=== PATIENT | male | born 1985 | race Hispanic/Latino ===

== ENCOUNTER 2019-03-04 16:22 | Emergency (ER) | payer SELFPAY ==
[2019-03-04] MEDS ORDERED: KETOROLAC TROMETHAMINE 60 MG/2 ML VIAL ONE (16:43)
[2019-03-04] MEDS ORDERED: ORPHENADRINE CITRATE 30 MG/ML ML ONE (16:43)
[2019-03-04 17:09] LABS: APPEARANCE,URINE Clear (CLEAR); BILIRUBIN,URINE Negative (NEGATIVE); COLOR,URINE Yellow (YELLOW); GLUCOSE, URINE (UA) Negative (NEGATIVE); KETONES,URINE Negative (NEGATIVE); LEUKOCYTE ESTERASE ,URINE Negative (NEGATIVE); NITRATE,URINE Negative (NEGATIVE); OCCULT BLOOD,URINE Negative (NEGATIVE); PH,URINE 5.5 (5.0-8.0); PROTEIN,URINE Negative (NEGATIVE)
== END 2019-03-04 18:39 | disposition home or self-care (01) ==
LOC: EDH 16:22
DX: M54.42 Lumbago with sciatica, left side (principal)
CPT/HCPCS: 72100; 81003; 96372 ×2; 99285; J1885; J2360

== ENCOUNTER 2021-08-21 11:11 | Emergency (ER) | payer OTHER ==
[~2021-08-21] VITALS: Ht 182.9 cm; Wt 102.1 kg
[2021-08-21] MEDS ORDERED: IBUPROFEN 800 MG TAB PO ONE (12:30)
[2021-08-21] MEDS ORDERED: IBUP-1552 PO (14:10)
[2021-08-21] MEDS ORDERED: CYCL10TA16 PO (14:10)
[2021-08-21 14:36] VITALS: BP 122/75
== END 2021-08-21 14:36 | disposition home or self-care (01) ==
LOC: EDH 11:11
DX: S16.1XXA Strain of muscle, fascia and tendon at neck level, initial encounter (principal); S20.219A Contusion of unspecified front wall of thorax, initial encounter; Z79.1 Long term (current) use of non-steroidal anti-inflammatories (NSAID); X58.XXXA Exposure to other specified factors, initial encounter; Y93.89 Activity, other specified; Y92.89 Other specified places as the place of occurrence of the external cause; Y99.8 Other external cause status
CPT/HCPCS: 71250; 72125

== ENCOUNTER 2022-02-19 19:13 | Emergency (ER) | payer OTHER ==
[~2022-02-19] VITALS: Ht 182.9 cm; Wt 111.1 kg
[~2022-02-19 19:13] MED LIST: CYCL10TA16 PO; IBUP-1552 PO
[2022-02-19 20:27] LABS: BASOPHILS % (AUTO) 0.6 % (0.0-5.0); EOSINOPHILS % (AUTO) 0.1 % (0.0-8.0); LYMPHOCYTES % (AUTO) 14.9 % (21.0-51.0); MEAN CORPUSCULAR HEMOGLOBIN 31.4 pg (27.0-33.0); MEAN CORPUSCULAR HGB CONC 34.8 g/dL (32.0-36.0); MEAN CORPUSCULAR VOLUME 90.4 fL (79-99); MONOCYTES % (AUTO) 7.9 % (3.0-13.0); NEUTROPHILS % (AUTO) 75.9 % (40.0-77.0); PLATELET COUNT (AUTO) 269 K/uL (130-400); RED BLOOD CELL COUNT(AUTO) 5.09 MIL/uL (4.50-6.20); RED CELL DISTRIBUTION WIDTH 12.4 % (11.0-15.5); WHITE BLOOD COUNT (AUTO) 8.8 K/uL (4.8-10.8)
[2022-02-19 20:38] LABS: CREATININE 0.9 mg/dL (0.5-1.5); POTASSIUM 3.6 mmol/L (3.5-5.1)
[2022-02-19 20:43] LABS: ALBUMIN 4.6 g/dL (3.5-5.0); BILIRUBIN,TOTAL 1.3 mg/dL (0.2-1.0); TOTAL PROTEIN, SERUM 9.1 g/dL (6.0-8.3)
[2022-02-19] MEDS ORDERED: HYDR-3422 PO (20:44)
[2022-02-19] MEDS ORDERED: LORAZEPAM 1 MG TABLET ONE (20:59)
[2022-02-19] MEDS ORDERED: LORAZEPAM 1 MG TABLET PO ONE (21:00)
[2022-02-19 21:52] VITALS: BP 145/79
== END 2022-02-19 21:54 | disposition home or self-care (01) ==
LOC: EDH 19:13
DX: F41.9 Anxiety disorder, unspecified (principal)
CPT/HCPCS: 36415; 80053; 84484; 85025; 93005

== ENCOUNTER 2022-04-17 18:51 | Emergency (ER) | payer OTHER ==
[~2022-04-17] VITALS: Ht 182.9 cm; Wt 106.6 kg
[~2022-04-17 18:51] MED LIST changes: +HYDR-3422 PO
[2022-04-17 19:24] LABS: APPEARANCE,URINE CLEAR (CLEAR); BILIRUBIN,URINE NEGATIVE (NEGATIVE); COLOR,URINE YELLOW (YELLOW); GLUCOSE, URINE (UA) NEGATIVE (NEGATIVE); KETONES,URINE NEGATIVE (NEGATIVE); LEUKOCYTE ESTERASE ,URINE NEGATIVE (NEGATIVE); NITRATE,URINE NEGATIVE (NEGATIVE); OCCULT BLOOD,URINE NEGATIVE (NEGATIVE); PH,URINE >=9.0 (5.0-8.0); PROTEIN,URINE TRACE mg/dL (NEGATIVE); UROBILINOGEN,URINE 0.2 mg/dL (0.2-1.0)
[2022-04-17 19:25] LABS: BASOPHILS % (AUTO) 0.7 % (0.0-5.0); EOSINOPHILS % (AUTO) 1.6 % (0.0-8.0); HEMATOCRIT 46.5 % (42-54); LYMPHOCYTES % (AUTO) 23.4 % (21.0-51.0); MEAN CORPUSCULAR HGB CONC 34.8 g/dL (32.0-36.0); MEAN CORPUSCULAR VOLUME 88.9 fL (79-99); NEUTROPHILS % (AUTO) 65.1 % (40.0-77.0); PLATELET COUNT (AUTO) 218 K/uL (130-400); RED BLOOD CELL COUNT(AUTO) 5.23 MIL/uL (4.50-6.20); RED CELL DISTRIBUTION WIDTH 12.8 % (11.0-15.5); WHITE BLOOD COUNT (AUTO) 6.9 K/uL (4.8-10.8)
[2022-04-17 19:33] LABS: AMPHET/METH SCREEN,URINE NEGATIVE (NEGATIVE); BACTERIA,URINE None Seen /HPF (None Seen); BARBITURATE SCREEN, URINE NEGATIVE (NEGATIVE); BENZODIAZEPINES SCREEN,URINE NEGATIVE (NEGATIVE); CANNABINOID SCREEN,URINE NEGATIVE (NEGATIVE); COCAINE SCREEN,URINE NEGATIVE (NEGATIVE); MUCUS,URINE Rare LPF (None Seen); OPIATE SCREEN,URINE NEGATIVE (NEGATIVE); PHENCYCLIDINE SCREEN,URINE NEGATIVE (NEGATIVE); RBC,URINE 0-1 /HPF (0-1); SQUAMOUS EPITHELIAL CELL,UR 0-2 /HPF (0-2); WBC,URINE 0-1 /HPF (0-1)
[2022-04-17 19:36] LABS: POTASSIUM 3.5 mmol/L (3.5-5.1)
[2022-04-17 19:45] LABS: ALBUMIN 4.6 g/dL (3.5-5.0); BILIRUBIN,TOTAL 0.8 mg/dL (0.2-1.0)
[2022-04-17] MEDS ORDERED: HYDROXYZINE 25 MG TABLET PO ONE (20:30)
[2022-04-17] MEDS ORDERED: HYDROXYZINE 25 MG TABLET ONE (22:07)
[2022-04-17 22:32] VITALS: BP 135/74
[2022-04-17] MEDS ORDERED: HYDR-3421 PO (22:57)
== END 2022-04-17 23:04 | disposition home or self-care (01) ==
LOC: EDH 18:51
DX: F41.9 Anxiety disorder, unspecified (principal); Z79.899 Other long term (current) drug therapy; Z98.890 Other specified postprocedural states
CPT/HCPCS: 36415; 80053; 80305; 81001; 84484; 85025; 93005

== ENCOUNTER 2022-12-23 09:03 | Emergency (ER) | payer OTHER ==
[~2022-12-23] VITALS: Ht 182.9 cm; Wt 108.9 kg
[~2022-12-23 09:03] MED LIST changes: +HYDR-3421 PO
[2022-12-23] MEDS ORDERED: DEXAMETHASONE SOD PHOSPHATE 4 MG/ML 1ML VIAL IM ONE (09:30)
[2022-12-23] MEDS ORDERED: DEXAMETHASONE SOD PHOSPHATE 10MG/ML 1ML VIAL ONE (09:37)
[2022-12-23] MEDS ORDERED: OSEL75 PO (10:53)
[2022-12-23] MEDS ORDERED: HYD25 PO (10:53)
[2022-12-23] MEDS ORDERED: IBUP-2070 PO (10:53)
[2022-12-23 11:09] VITALS: BP 137/94
== END 2022-12-23 11:12 | disposition home or self-care (01) ==
LOC: EDH 09:03
DX: J10.1 Influenza due to other identified influenza virus with other respiratory manifestations (principal); F41.9 Anxiety disorder, unspecified; Z20.822 Contact with and (suspected) exposure to COVID-19; Z79.899 Other long term (current) drug therapy; Z98.890 Other specified postprocedural states
CPT/HCPCS: 99283; 87635; 87880; 87804 ×2; 96372; C9803; J1100

== ENCOUNTER 2024-11-25 02:44 | Emergency (ER) | payer SELFPAY ==
[~2024-11-25] VITALS: Ht 182.9 cm; Wt 111.1 kg
[~2024-11-25 02:44] MED LIST changes: +HYD25 PO; +IBUP-2070 PO; +OSEL75 PO
[2024-11-25] MEDS: ALPRAZolam 0.5 MG TABLET PO ONE (03:15)
[2024-11-25 03:29] VITALS: BP 143/95; PULSE 78; RESP 18; TEMP 97; O2SAT 98
[2024-11-25 03:38] LABS: BASOPHILS # (AUTO) 0.05 K/uL (0.00-0.20); BASOPHILS % (AUTO) 0.8 % (0.0-5.0); EOSINOPHILS # (AUTO) 0.16 K/uL (0.00-0.70); EOSINOPHILS % (AUTO) 2.6 % (0.0-8.0); HEMATOCRIT 45.3 % (42-54); IMMATURE GRANULOCYTE ABSOLUTE 0.03 K/uL (0-1); LYMPHOCYTES # (AUTO) 1.8 K/uL (1.0-4.8); LYMPHOCYTES % (AUTO) 28.9 % (21.0-51.0); MEAN CORPUSCULAR HEMOGLOBIN 31.3 pg (27.0-33.0); MEAN CORPUSCULAR HGB CONC 34.2 g/dL (32.0-36.0); MEAN CORPUSCULAR VOLUME 91.3 fL (79-99); MONOCYTES # (AUTO) 0.5 K/uL (0.1-1.0); MONOCYTES % (AUTO) 8.2 % (3.0-13.0); NEUTROPHILS # (AUTO) 3.6 K/uL (1.8-7.7); PLATELET COUNT (AUTO) 229 K/uL (130-400); RED BLOOD CELL COUNT(AUTO) 4.96 MIL/uL (4.50-6.20); RED CELL DISTRIBUTION WIDTH 12.9 % (11.0-15.5); WHITE BLOOD COUNT (AUTO) 6.1 K/uL (4.8-10.8)
[2024-11-25 03:50] LABS: CREATININE 0.8 mg/dL (0.5-1.3); POTASSIUM 3.6 mmol/L (3.5-5.1)
[2024-11-25] MEDS ORDERED: HYDR-3421 PO (04:34)
--- NOTE | 2024-11-25 04:34 | ERN ---
ED Note History of Present Illness Stated Complaint: ANXIETY Chief Complaint: Anxiety/Panic Attack Time Seen by Midlevel: 02:45 Dictation: The patient is a 39-year-old male with a history of anxiety who presents to the emergency department with complaints of anxiety, palpitations. Patient reports these symptoms been going on for two years but worse today. Reports some shortness of breath and chest discomfort. Allergies: Coded Allergies: No Known Drug Allergies (Unverified Allergy, Unknown, 03/04/19) Home Meds Active Scripts Hydroxyzine HCl (Atarax) 25 Mg Tab, 25 MG PO TID for ANXIETY, #30 TAB Prov:ZOHRA GÓMEZ MD 12/23/22 Oseltamivir Phosphate (Tamiflu) 75 Mg Cap, 75 MG PO BID for 5 Days, #10 CAP Prov:ZOHRA GÓMEZ MD 12/23/22 Ibuprofen (Ibuprofen) 600 Mg Tablet, 600 MG PO Q6H PRN for PAIN, #30 TAB Prov:ZOHRA GÓMEZ MD 12/23/22 Hydroxyzine HCl (Hydroxyzine HCl) 25 Mg Tablet, 25 MG PO QID PRN for ANX IETY/AGITATION, #30 TAB 0 Refills Prov:AI REES MD 04/17/22 Hydroxyzine HCl (Hydroxyzine HCl) 50 Mg Tablet, 50 MG PO TID PRN for ANXIETY/AGITATION, #15 TAB Prov:MYRIAM BHATT 02/19/22 Cyclobenzaprine HCl (Flexeril) 10 Mg Tab, 10 MG PO BID, #30 TAB Prov:JAS LARRY 08/21/21 Ibuprofen (Ibu) 400 Mg Tablet, 800 MG PO TIDAC, #60 TAB Prov:JAS LARRY 08/21/21 Past Medical History Past Medical History: Anxiety Surgical History: None Surgical History Other: FOOT Social History: Negative, Lives with family Initial Vital Sign VS Vital Signs Date Time Temp Pulse Resp B/P (MAP) Pulse Ox O2 Delivery O2 Flow Rate FiO2 11/25/24 03:00 97.0 78 18 143/95 97 Room Air 11/25/24 03:29 0 21 Results (Laboratory/Radiology) Laboratory/Radiology Laboratory Tests Test 11/25/24 03:15 White Blood Count 6.1 K/uL (4.8-10.8) Red Blood Count 4.96 MIL/uL (4.50-6.20) Hemoglobin 15.5 g/dL (14.0-18.0) Hematocrit 45.3 % (42-54) Mean Corpuscular Volume 91.3 fL (79-99) Mean Corpuscular Hemoglobin 31.3 pg (27.0-33.0) Mean Corpuscular Hemoglobin Concent 34.2 g/dL (32.0-36.0) Red Cell Distribution Width 12.9 % (11.0-15.5) Platelet Count 229 K/uL (130-400) Mean Platelet Volume 9.2 fL (7.5-10.5) Immature Granulocyte % (Auto) 0.5 % (0-1) Neutrophils (%) (Auto) 59.0 % (40.0-77.0) Lymphocytes (%) (Auto) 28.9 % (21.0-51.0) Monocytes (%) (Auto) 8.2 % (3.0-13.0) Eosinophils (%) (Auto) 2.6 % (0.0-8.0) Basophils (%) (Auto) 0.8 % (0.0-5.0) Neutrophils # (Auto) 3.6 K/uL (1.8-7.7) Lymphocytes # (Auto) 1.8 K/uL (1.0-4.8) Monocytes # (Auto) 0.5 K/uL (0.1-1.0) Eosinophils # (Auto) 0.16 K/uL (0.00-0.70) Basophils # (Auto) 0.05 K/uL (0.00-0.20) Absolute Immature Granulocyte (auto 0.03 K/uL (0-1) Nucleated Red Blood Cells 0.0 % (0.0-0.19) Sodium Level 135 mmol/L (136-145) L Potassium Level 3.6 mmol/L (3.5-5.1) Chloride Level 98 mmol/L (101-111) L Carbon Dioxide Level 26 mmol/L (21-32) Blood Urea Nitrogen 6 mg/dL (7-18) L Creatinine 0.8 mg/dL (0.5-1.3) Glomerular Filtration Rate Calc 115 mL/min (>90) Random Glucose 104 mg/dL (70-105) Total Calcium 9.1 mg/dL (8.5-10.1) Troponin I High Sensitivity 8 ng/L (4-75) Labs Reviewed?: Yes EKG: (+) rhythm (Sinus rhythm) EKG Comment: Date:11/25/2024 Time:318 Ventricular rate:79 NV interval:151 QRS duration:86 QT/QTc:380 EKG interpretation: Sinus rhythm Reviewed by ED Attending no STEMI ED Course ED Course Orders Procedure Category Date Status Time 12 Lead Ekg Tracing- EKG 11/25/24 Logged Technical 03:04 Cbc With Differential LAB 11/25/24 Complete 03:04 Basic Metabolic Panel LAB 11/25/24 Complete 03:04 Troponin I High LAB 11/25/24 Complete Sensitivity 03:04 Alprazolam 0.5mg PHA 11/25/24 Complete (Xanax 0.5mg) 03:30 Current Medications Medications (Trade) Dose Ordered Sig/Jarad Route PRN Reason Start Time Stop Time Status Last Admin Dose Admin Alprazolam (XANax 0.5MG) 0.5 mg ONCE ONCE PO 11/25/24 03:30 11/25/24 03:32 DC 11/25/24 03:15 Vital Signs Date Time Temp Pulse Resp B/P (MAP) Pulse Ox O2 Delivery O2 Flow Rate FiO2 11/25/24 03:29 97.0 78 18 143/95 98 Room Air* 0 21 11/25/24 03:00 97.0 78 18 143/95 97 Room Air Medical Decision Making MDM The patient is a 39-year-old male with a history of anxiety who presents to the emergency department with complaints of anxiety, palpitations. Patient reports these symptoms been going on for two years but worse today. Reports some shortness of breath and chest discomfort. CBC showed no leukocytosis, no anemia, chemistry showed mild hypochloremia, hyponatremia, negative troponin. Patient seen in the hospital for multiple occasions for same complaints. Patient denies any SI or HI. Reports improving in symptoms after medication. Patient in no acute distress. Will be discharged to follow up with PCP. Differential diagnosis: ACS, anxiety, dehydration, tachyarrhythmias Need for hospitalization: Patient does not meet criteria for hospitalization. There are no social concerns with this patient. DX & DISP Disposition: Discharge Departure Impression: Primary Impression: Anxiety attack Condition: Stable Scripts Hydroxyzine HCl (Hydroxyzine HCl) 25 Mg Tablet 1 TAB PO TID for anxiety for 30 Days, #90 TAB 0 Refills Prov: ZEKE WALKER 11/25/24 Additional Instructions: FOLLOW-UP WITH PRIMARY CARE PROVIDER IN 1 TO 2 DAYS. TAKE MEDICATIONS DIRECTED HERE IN THE EMERGENCY ROOM. OKAY TO CONTINUE HOME MEDICATIONS UNLESS OTHERWISE DISCUSSED DURING YOUR VISIT IN THE EMERGENCY ROOM TODAY. RETURN TO YOUR NEAREST EMERGENCY ROOM IF SYMPTOMS WORSEN OR IF THERE IS NO IMPROVEMENT. CALL 911 IF YOU NEED IMMEDIATE ASSISTANCE. TAKE TYLENOL OR MOTRIN [id number] NEEDED AND IF NO CONTRAINDICATIONS ARE PRESENT. INCREASE ORAL HYDRATION. A WOUND CULTURE OR URINE CULTURE WAS ORDERED HERE IN THE EMERGENCY ROOM DEPARTMENT PLEASE FOLLOW-UP WITH PRIMARY CARE PROVIDER AND ADVISE THEM TO GET REPEAT PORTS FROM OUR FACILITY. IF YOU HAD ANY ETTA WRAP/SPLINTS THAT WERE APPLIED HERE, PLEASE DO NOT REMOVE THEM UNTIL YOU SEE YOUR PRIMARY CARE OR SPECIALTY. Referrals: SELF,REFERRAL (PCP) Time of Disposition: 04:33 I have reviewed the case, and I agree with, Diagnosis and Plan ZEKE WALKER Nov 25, 2024 04:34
--- NOTE | 2024-11-25 07:44 | EKG ---
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
== END 2024-11-25 04:40 | disposition home or self-care (01) ==
LOC: EDH 02:44
DX: F41.0 Panic disorder [episodic paroxysmal anxiety] (principal)
CPT/HCPCS: 36415; 80048; 84484; 85025; 93005; 99284

== ENCOUNTER 2025-06-29 04:32 | Emergency (ER) | payer SELFPAY ==
[~2025-06-29] VITALS: Ht 182.9 cm; Wt 117.5 kg
[~2025-06-29 04:32] MED LIST changes: +IBUP-1492 PO; -IBUP-2070 PO; +IBUP-2077 PO; +OMEP40CA21 PO
[2025-06-29] MEDS ORDERED: HYDR-3421 PO (05:04)
--- NOTE | 2025-06-29 05:12 | ERN ---
ED Note History of Present Illness Stated Complaint: C/O ANXIETY, DIZZINESS, PANIC ATTACKS,CP Chief Complaint: Dizzy/Light Headed Time Seen by MD: 04:49 Dictation: This is a 39-year-old male with long history of anxiety has not never been formally evaluated or treated comes in periodically to the emergency room with multiple somatic complaints and he is unable to figure out the trigger for his symptoms. He stated that he could not sleep today and was very anxious and began experiencing dizziness nonspecific aches and pains. He stated that he drank alcohol hoping it would help him with his anxiety and get to sleep. Temperature 98.2 pulse 83 respirations 20 blood pressure 155/92 with a pulse oximetry of 97% on room air Chronic medical problems include anxiety disorder likely depression associated, hypertension Allergies: Coded Allergies: No Known Drug Allergies (Unverified Allergy, Unknown, 03/04/19) Home Meds Active Scripts Hydroxyzine HCl (Hydroxyzine HCl) 25 Mg Tablet, 1 TAB PO TID for anxiety for 10 Days, #30 TAB 0 Refills Prov:GEOFFREY SALEH MD 06/29/25 Omeprazole (Omeprazole) 40 Mg Capsule.dr, 1 CAP PO DAILY for 30 Days, #30 CAP 0 Refills Prov:LONI JIMENEZ STONE [place]ON 03/21/25 Ibuprofen (Ibuprofen 800 mg Tab) 800 Mg Tab, 800 MG PO Q8H PRN for fever or pain, #30 TAB 0 Refills Prov:LONI JIMENEZ [place]ONE [place] 03/21/25 Hydroxyzine HCl (Hydroxyzine HCl) 25 Mg Tablet, 1 TAB PO TID for anxiety for 30 Days, #90 TAB 0 Refills Prov:ZEKE WALKER VOUCHER EXAMINER 11/25/24 Hydroxyzine HCl (Atarax) 25 Mg Tab, 25 MG PO TID for ANXIETY, #30 TAB Prov:ZOHRA GÓMEZ MD 12/23/22 Oseltamivir Phosphate (Tamiflu) 75 Mg Cap, 75 MG PO BID for 5 Days, #10 CAP Prov:ZOHRA GÓMEZ MD 12/23/22 Ibuprofen (Ibuprofen) 600 Mg Tablet, 600 MG PO Q6H PRN for PAIN, #30 TAB Prov:ZOHRA GÓMEZ MD 12/23/22 Hydroxyzine HCl (Hydroxyzine HCl) 25 Mg Tablet, 25 MG PO QID PRN for ANXIETY/AGITATION, #30 TAB 0 Refills Prov:AI REES MD 04/17/22 Hydroxyzine HCl (Hydroxyzine HCl) 50 Mg Tablet, 50 MG PO TID PRN for ANXIETY/AGITATION, #15 TAB Prov:DAMIÁN BHATTESANTIAGO POOL 02/19/22 Cyclobenzaprine HCl (Flexeril) 10 Mg Tab, 10 MG PO BID, #30 TAB Prov:JAS LARRY 08/21/21 Ibuprofen (Ibu) 400 Mg Tablet, 800 MG PO TIDAC, #60 TAB Prov:JAS LARRY 08/21/21 Past Medical History Past Medical History: Anxiety, Hypertension Surgical History: Other Surgical History Other: LEFT FOOT SX Family History: Negative Social History: ETOH, Negative, Lives with family RN Note Reviewed/Agreed w/PFSH: Yes Review of System Dictation Constitutional: Negative for fever,chills, and weight loss Eyes: Negative for injury, pain,redness, and discharge ENT: Negative for injury,pain or swelling Cardiovascular: Negative for chest pain, palpitations, and edema Respiratory: Negative for shortness of breath, cough, and wheezing, Abdomen/GI: Negative for abdominal pain, nausea, vomiting, diarrhea, and constipation Back: Negative for injury and pain : Negative for injury, bleeding and discharge MS/Extremity: Negative for injury and deformity Skin: Negative for rash, and discoloration Neuro: Negative for headache, weakness, numbness, tingling, and seizure Psych: Negative for suicide ideation, homicidal ideation, and hallucinations positive for severe anxiety, insomnia positive for somatic complaints associated with anxiety attack Initial Vital Sign VS Vital Signs Date Time Temp Pulse Resp B/P (MAP) Pulse Ox O2 Delivery O2 Flow Rate FiO2 06/29/25 04:35 98.2 83 20 155/92 97 Room Air* 0 21 Physical Exam Dictation General: awake, alert, NAD obese male not in any distress, generally anxious Head/Face: Normocephalic, atraumatic Eyes: PERRL, EOMI, vision at baseline ENT: oral cavity clear, TMs clear, no signs of infection Neck: Trachea midline, supple, no nuchal rigidity Cardiovascular: RRR, normal S1/S2, No MRGs, no JVD Respiratory: CTAB, no respiratory distress, No rales or wheezes Abdomen: Soft, non-tender, non-distended, normal bowel sounds, no guarding or rebound. Skin: Warm, dry, normal turgor, no rash MS/Extremity: Pulses equal, no cyanosis, neurovascular intact, FROM Neuro: COAx4, GCS 15, strength 5/5, CN 2-12 intact, normal cerebellar exam, normal gait, Psych: Normal behavior, mood, and affect normal Extremities-trace edema without any palpable cords, Homans sign is negative Results (Laboratory/Radiology) Laboratory/Radiology Laboratory Tests Test 06/29/25 05:05 06/29/25 08:18 White Blood Count 6.9 K/uL (4.8-10.8) Red Blood Count 4.17 MIL/uL (4.50-6.20) L Hemoglobin 12.2 g/dL (14.0-18.0) L Hematocrit 35.5 % (42-54) L Mean Corpuscular Volume 85.1 fL (79-99) Mean Corpuscular Hemoglobin 29.3 pg (27.0-33.0) Mean Corpuscular Hemoglobin Concent 34.4 g/dL (32.0-36.0) Red Cell Distribution Width 19.4 % (11.0-15.5) H Platelet Count 203 K/uL (130-400) Mean Platelet Volume 10.3 fL (7.5-10.5) Immature Granulocyte % (Auto) 0.6 % (0-1) Neutrophils (%) (Auto) 59.9 % (40.0-77.0) Lymphocytes (%) (Auto) 28.6 % (21.0-51.0) Monocytes (%) (Auto) 9.3 % (3.0-13.0) Eosinophils (%) (Auto) 1.0 % (0.0-8.0) Basophils (%) (Auto) 0.6 % (0.0-5.0) Neutrophils # (Auto) 4.1 K/uL (1.8-7.7) Lymphocytes # (Auto) 2.0 K/uL (1.0-4.8) Monocytes # (Auto) 0.6 K/uL (0.1-1.0) Eosinophils # (Auto) 0.07 K/uL (0.00-0.70) Basophils # (Auto) 0.04 K/uL (0.00-0.20) Absolute Immature Granulocyte (auto 0.04 K/uL (0-1) Nucleated Red Blood Cells 0.3 % (0.0-0.19) H Red Blood Cell Morphology See comments Sodium Level 135 mmol/L (136-145) L 133 mmol/L (136-145) L Potassium Level 2.9 mmol/L (3.5-5.1) *L 4.6 mmol/L (3.5-5.1) Chloride Level 99 mmol/L (101-111) L 98 mmol/L (101-111) L Carbon Dioxide Level 25 mmol/L (21-32) 26 mmol/L (21-32) Blood Urea Nitrogen 3 mg/dL (7-18) L 5 mg/dL (7-18) L Creatinine 0.7 mg/dL (0.5-1.3) 0.7 mg/dL (0.5-1.3) Glomerular Filtration Rate Calc 119 mL/min (>90) 119 mL/min (>90) Random Glucose 93 mg/dL (70-105) 113 mg/dL (70-105) H Total Calcium 8.7 mg/dL (8.5-10.1) 8.7 mg/dL (8.5-10.1) Labs Reviewed?: Yes EKG Comment: Twelve lead EKG done on 06/29/2025 at 5:11 a.m. showed a heart rate of 84, HI interval 147, QRS 92, QT/QTC 409/485 Impression normal sinus rhythm with nonspecific ST-T changes slightly prolonged borderline QT interval nonspecific ST-T depressions in lead 3 and AVF. This poor progression of the R-wave. EKG rhythm strip shows normal sinus rhythm with no acute STT wave changes Interpreted by ER MD Dr. Saleh ED Course ED Course Orders Procedure Category Date Status Time Diazepam 5 Mg/Ml 2 Ml PHA 06/29/25 In Process Syg (Valium 5 Mg/M 05:30 Methylprednisolone PHA 06/29/25 Complete Succ 40mg (Solu-Medro 05:30 Cbc With Differential LAB 06/29/25 Complete 05:08 Basic Metabolic Panel LAB 06/29/25 Complete 05:08 12 Lead Ekg Tracing- EKG 06/29/25 Resulted Technical 05:08 Potassium Bicarb/Cit PHA 9/16/25 Complete Ac 25meq (K-Lyte Ta 06:30 0.9%Nacl 1000ml (Ns PHA 06/29/25 Complete 1000ml) 08:30 Potassium Chloride PHA 06/29/25 In Process 10meq/100ml ([place] 08:30 Basic Metabolic Panel LAB 06/29/25 Complete 08:12 Current Medications Medications (Trade) Dose Ordered Sig/Jarad Route PRN Reason Start Time Stop Time Status Last Admin Dose Admin Diazepam (VALium 5 MG/ML 2 ML SYG) 2.5 mg Q4H PRN IV ANXIETY 06/29/25 05:30 07/06/25 05:29 06/29/25 05:27 Methylprednisolone Sodium Succinate (Solu-medROL 40MG) 40 mg ONCE ONCE IVP 06/29/25 05:30 06/29/25 05:31 DC 06/29/25 05:27 Potassium Bicarbonate (K-Lyte Tablet Eff 25 Meq Tablet.eff) 50 meq ONCE ONCE PO 06/29/25 06:30 06/29/25 06:31 DC 06/29/25 06:13 Potassium Chloride 100 ml @ 100 mls/hr ONCE ONCE IV 06/29/25 08:30 06/29/25 09:29 06/29/25 08:28 Sodium Chloride 1,000 ml @ 0 mls/hr ONCE ONCE IV 06/29/25 08:30 06/29/25 08:31 DC 06/29/25 08:28 Vital Signs Date Time Temp Pulse Resp B/P (MAP) Pulse Ox O2 Delivery O2 Flow Rate FiO2 06/29/25 08:02 97.9 75 18 151/87 99 Room Air* 0 21 06/29/25 06:55 77 18 139/91 97 Room Air* 0 21 06/29/25 05:46 82 20 138/90 93 Room Air* 0 21 06/29/25 04:35 98.2 83 20 155/92 97 Room Air 06/29/25 04:35 98.2 83 20 155/92 97 Room Air* 0 21 We will perform diagnostic labs, and administer medications according to the patient's complaint. Once the results are available, will review and personally interpreted the labs to rule out any acute life-threatening emergency the trach require immediate intervention and treatment. I will then re-evaluate the patient after treatment and diagnostic exams have return to determine whether the patient requires any further testing, can safely be discharged home or need further admission to hospital for additional treatment and evaluation. 5:41 a.m. CBC is with a normal limits. BNP 7 is pending 6:00 a.m. BNP 7 showed a potassium of 2.9 we will replete. 6:45 a.m. patient is getting the potassium repletion. Once he completes the potassium repletion and feels better consider discharge to home Medical Decision Making MDM Differential diagnosis: Acute panic attack, anxiety attack, dehydration, mild depression, dehydration, hypokalemia Rationale: Tests considered and ordered secondary to shared decision making include: Previous outside records reviewed: Old ER visits. Risk of complication and/or morbidity or mortality of patient management: None Medications-Per medication reconciliation Need for hospitalization: Patient does not meet criteria for hospitalization. Need for emergency major/minor surgery: No Patient is a 39-year-old male coming in complaining of anxiety. Laboratory workup showed low potassium hydration which replaced. Patient will be dis charged in stable condition with a diagnosis of anxiety hydration and hypokalemia. Problem List Problem List: (1) Acute anxiety (2) Hypokalemia (3) Alcohol use DX & DISP Disposition: Discharge Decision to Admit Time: 08:54 Departure Impression: Primary Impression: Acute anxiety Additional Impressions: Hypokalemia, Alcohol use Condition: Stable Scripts Hydroxyzine HCl (Hydroxyzine HCl) 25 Mg Tablet 1 TAB PO TID for anxiety for 10 Days, #30 TAB 0 Refills Prov: GEOFFREY SALEH MD 06/29/25 Additional Instructions: Patient and the caregiver have been informed of all the diagnostic tests and the imaging conducted during the today's visit to the emergency room and has verbalized understanding of the results I have personally reviewed and interpreted all diagnostic exams performed here in the ER today as well as the vital signs documented by the nursing staff. The patient is now being discharg ed to home and should follow up with the primary care physician or the specialist as directed by the ER staff. Follow-up with primary care provider in 1 to 2 days. Take medications as directed here in the emergency room. Okay to continue home medications unless otherwise discussed during your visit in the emergency room today. Return to your nearest emergency room if symptoms worsen or if there is no improvement. Call 911 if you need immediate assistance. Take Tylenol or Motrin [id number] as needed and if no contraindications are present. Increase oral hydration. A wound culture or urine culture was ordered here in the emergency room department please follow-up with primary care provider and advise them to get repeat ports from our facility. If you had any Jh wrap/splints that were applied here, please do not remove them until you see your primary care or specialty. Referrals: SELF,REFERRAL (PCP) GEOFFREY SALEH MD Jun 29, 2025 05:12 DAILY FRANCO MD Jun 29, 2025 08:55
[2025-06-29] MEDS: Solu-medROL 40MG VIAL IVP ONE (05:27)
[2025-06-29 05:36] LABS: IMMATURE GRANULOCYTE ABSOLUTE 0.04 K/uL (0-1); NUCLEATED RED BLOOD CELLS 0.3 % (0.0-0.19); PLATELET COUNT (AUTO) 203 K/uL (130-400); RED BLOOD CELL COUNT(AUTO) 4.17 MIL/uL (4.50-6.20); RED CELL DISTRIBUTION WIDTH 19.4 % (11.0-15.5); WHITE BLOOD COUNT (AUTO) 6.9 K/uL (4.8-10.8)
[2025-06-29 05:57] LABS: CREATININE 0.7 mg/dL (0.5-1.3); GLOMERULAR FILTR. RATE CALC 119.0 mL/min (>90); GLUCOSE,RANDOM 93.0 mg/dL (70-105); SODIUM SERUM 135.0 mmol/L (136-145); UREA NITROGEN, BLOOD 3.0 mg/dL (7-18)
--- NOTE | 2025-06-29 07:29 | EKG ---
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
[2025-06-29 08:02] VITALS: BP 151/87; PULSE 75; RESP 18; TEMP 97.8; O2SAT 99
[2025-06-29] MEDS: 0.9%NACL 1000ML 1,000 ML IV ONE (08:28)
[2025-06-29 08:35] LABS: CREATININE 0.7 mg/dL (0.5-1.3); GLOMERULAR FILTR. RATE CALC 119.0 mL/min (>90); GLUCOSE,RANDOM 113.0 mg/dL (70-105); SODIUM SERUM 133.0 mmol/L (136-145); UREA NITROGEN, BLOOD 5.0 mg/dL (7-18)
== END 2025-06-29 09:21 | disposition home or self-care (01) ==
LOC: EDH 04:32
DX: E87.6 Hypokalemia (principal); F41.9 Anxiety disorder, unspecified; I10 Essential (primary) hypertension; F10.90 Alcohol use, unspecified, uncomplicated; Z79.899 Other long term (current) drug therapy; Y90.9 Presence of alcohol in blood, level not specified
CPT/HCPCS: 99284; 96365; 96375; 80048 ×2; 85025; 36415; 93005; J2919; J7030; J3360; J3480

== ENCOUNTER 2025-07-15 00:15 | Emergency (ER) | payer SELFPAY ==
[~2025-07-15] VITALS: Ht 182.9 cm; Wt 115.7 kg
[2025-07-15 00:16] VITALS: BP 151/97; PULSE 96; RESP 20; TEMP 98.6
--- NOTE | 2025-07-15 00:49 | ERN ---
ED Note History of Present Illness Stated Complaint: C/O ANXIETY Chief Complaint: Anxiety/Panic Attack Time Seen by MD: 00:35 Time Seen by Midlevel: 00:35 Dictation: The patient is a 39-year-old male with a history of anxiety who presents to the emergency department with complaints of anxiety. Patient reports that he was seen here two weeks ago and was prescribed hydroxyzine but has not been able to get it from his pharmacy. Patient otherwise denies any other associated symptoms. Denies any suicidal or homicidal ideations. Allergies: Coded Allergies: No Known Drug Allergies (Unverified Allergy, Unknown, 03/04/19) Home Meds Active Scripts Hydroxyzine HCl (Hydroxyzine HCl) 25 Mg Tablet, 1 TAB PO TID for anxiety for 10 Days, #30 TAB 0 Refills Prov:GEOFFREY LAU MD 06/29/25 Omeprazole (Omeprazole) 40 Mg Capsule.dr, 1 CAP PO DAILY for 30 Days, #30 CAP 0 Refills Prov:LONI JIMENEZ NP 03/21/25 Ibuprofen (Ibuprofen 800 mg Tab) 800 Mg Tab, 800 MG PO Q8H PRN for fever or pain, #30 TAB 0 Refills Prov:LONI JIMENEZ NP 03/21/25 Hydroxyzine HCl (Hydroxyzine HCl) 25 Mg Tablet, 1 TAB PO TID for anxiety for 30 Days, #90 TAB 0 Refills Prov:ZEKE WALKER 11/25/24 Hydroxyzine HCl (Atarax) 25 Mg Tab, 25 MG PO TID for ANXIETY, #30 TAB Prov:ZOHRA GÓMEZ MD 12/23/22 Oseltamivir Phosphate (Tamiflu) 75 Mg Cap, 75 MG PO BID for 5 Days, #10 CAP Prov:ZOHRA GÓMEZ MD 12/23/22 Ibuprofen (Ibuprofen) 600 Mg Tablet, 600 MG PO Q6H PRN for PAIN, #30 TAB Prov:ZOHRA GÓMEZ MD 12/23/22 Hydroxyzine HCl (Hydroxyzine HCl) 25 Mg Tablet, 25 MG PO QID PRN for ANXIETY/AGITATION, #30 TAB 0 Refills Prov:AI REES MD 04/17/22 Hydroxyzine HCl (Hydroxyzine HCl) 50 Mg Tablet, 50 MG PO TID PRN for ANXIETY/AGITATION, #15 TAB Prov:MYRIAM BHATT DOCTOR OF DENTAL SURGERY 02/19/22 Cyclobenzaprine HCl (Flexeril) 10 Mg Tab, 10 MG PO BID, #30 TAB Prov:JAS LARRY 08/21/21 Ibuprofen (Ibu) 400 Mg Tablet, 800 MG PO TIDAC, #60 TAB Prov:LARRY,JAS PA 08/21/21 Past Medical History Past Medical History: Anxiety Surgical History: Other Surgical History Other: LEFT FOOT SX Family History: Negative Social History: ETOH, Negative, Lives with family RN Note Reviewed/Agreed w/PFSH: Yes Review of System Dictation Constitutional: Negative for fever,chills, and weight loss Eyes: Negative for injury, pain,redness, and discharge ENT: Negative for injury,pain or swelling Cardiovascular: Negative for chest pain, palpitations, and edema Respiratory: Negative for shortness of breath, cough, and wheezing, Abdomen/GI: Negative for abdominal pain, nausea, vomiting, diarrhea, and constipation Back: Negative for injury and pain : Negative for injury, bleeding and discharge MS/Extremity: Negative for injury and deformity Skin: Negative for rash, and discoloration Neuro: Negative for headache, weakness, numbness, tingling, and seizure Psych: Negative for suicide ideation, homicidal ideation, and hallucinations positive for anxiety Initial Vital Sign VS Vital Signs Date Time Temp Pulse Resp B/P (MAP) Pulse Ox O2 Delivery O2 Flow Rate FiO2 07/15/25 00:16 98.6 96 20 151/97 99 Room Air Physical Exam Dictation Vital Signs reviewed General Appearance: Alert, oriented x 3, no acute distress, well developed, nourished. Head and Face: non-traumatic. Eyes: PERRL, pink conjunctivas, eyelid no trauma, anterior chamber with arcus senilis. Ears: Pinnas intact and no signs of trauma or erythema ear canals clear and no discharge TM no erythema Nose: No discharge, no bleeding. Oropharynx: Mouth normal, tongue pink. pharynx clear,no erythema, tonsils no exudates, no abscesses noted, mucous membrane moist Neck: Supple, non-tender, no thyromegaly, no masses, no JVD, no bruits Breast:Deferred Chest:No tenderness, no crepitus, no paradoxical movement, no retractions Lungs:Clear, well-ventilated, symmetric, no rales, no wheezing, no rhonchi, no stridor, good breath sounds bilaterally Heart: Regular rate, regular rhythm, no murmur, no gallops Vascular: no peripheral edema, Abdomen: Soft, positive bowel sounds, nondistended, no guarding, nontender, no rebound, no masses no hepatomegaly, no splenomegaly, no Salguero's sign, no hernias. Rectal: Deferred Genital: Deferred Neurological: Normal speech, motor function intact, sensory function intact Musculoskeletal: Neck nontender, full range of motion, back nontender, full rang e of motion, Extremities: nontender, full range of motion Skin: Color pink, dry, no turgor, no rash, no lacerations, no abrasions, no contusions. Lymphatic: Deferred Results (Laboratory/Radiology) Laboratory/Radiology Laboratory Tests Test 07/15/25 02:10 White Blood Count 7.7 K/uL (4.8-10.8) Red Blood Count 4.34 MIL/uL (4.50-6.20) L Hemoglobin 12.7 g/dL (14.0-18.0) L Hematocrit 37.9 % (42-54) L Mean Corpuscular Volume 87.3 fL (79-99) Mean Corpuscular Hemoglobin 29.3 pg (27.0-33.0) Mean Corpuscular Hemoglobin Concent 33.5 g/dL (32.0-36.0) Red Cell Distribution Width 18.6 % (11.0-15.5) H Platelet Count 143 K/uL (130-400) Mean Platelet Volume 9.6 fL (7.5-10.5) Immature Granulocyte % (Auto) 0.3 % (0-1) Neutrophils (%) (Auto) 75.8 % (40.0-77.0) Lymphocytes (%) (Auto) 14.1 % (21.0-51.0) L Monocytes (%) (Auto) 8.8 % (3.0-13.0) Eosinophils (%) (Auto) 0.3 % (0.0-8.0) Basophils (%) (Auto) 0.7 % (0.0-5.0) Neutrophils # (Auto) 5.8 K/uL (1.8-7.7) Lymphocytes # (Auto) 1.1 K/uL (1.0-4.8) Monocytes # (Auto) 0.7 K/uL (0.1-1.0) Eosinophils # (Auto) 0.02 K/uL (0.00-0.70) Basophils # (Auto) 0.05 K/uL (0.00-0.20) Absolute Immature Granulocyte (auto 0.02 K/uL (0-1) Nucleated Red Blood Cells 0.0 % (0.0-0.19) Red Blood Cell Morphology ANISO 1+ Sodium Level 136 mmol/L (136-145) Potassium Level 4.5 mmol/L (3.5-5.1) Chloride Level 100 mmol/L (101-111) L Carbon Dioxide Level 24 mmol/L (21-32) Blood Urea Nitrogen 6 mg/dL (7-18) L Creatinine 0.7 mg/dL (0.5-1.3) Glomerular Filtration Rate Calc 119 mL/min (>90) Random Glucose 134 mg/dL (70-105) H Total Calcium 9.4 mg/dL (8.5-10.1) Troponin I High Sensitivity 10 ng/L (4-75) Labs Reviewed?: Yes EKG: (+) rhythm (Sinus rhythm) EKG Comment: Date:07/15/2025 Time:211 Ventricular rate:85 NH interval:155 QRS duration:88 QT/QTc:409/486 EKG interpretation: Sinus rhythm Reviewed by ED Attending no STEMI ED Course ED Course Orders Procedure Category Date Status Time Hydroxyzine 25mg Tab PHA 07/15/25 Complete (Atarax 25mg Tab) 01:00 12 Lead Ekg Tracing- EKG 07/15/25 Complete Technical 01:42 Cbc With Differential LAB 07/15/25 Complete 01:43 Troponin I High LAB 07/15/25 Complete Sensitivity 01:43 Basic Metabolic Panel LAB 07/15/25 Complete 01:43 Current Medications Medications (Trade) Dose Ordered Sig/Jarad Route PRN Reason Start Time Stop Time Status Last Admin Dose Admin Hydroxyzine HCl (ATArax 25MG TAB) 25 mg ONCE ONCE PO 07/15/25 01:00 07/15/25 01:01 DC 07/15/25 00:55 Vital Signs Date Time Temp Pulse Resp B/P (MAP) Pulse Ox O2 Delivery O2 Flow Rate FiO2 07/15/25 00:16 98.6 96 20 151/97 99 Room Air Medical Decision Making MDM The patient is a 39-year-old male with a history of anxiety who presents to the emergency department with complaints of anxiety. Patient reports that he was seen here two weeks ago and was prescribed hydroxyzine but has not been able to get it from his pharmacy. Patient otherwise denies any other associated symptoms. Denies any suicidal or homicidal ideations. CBC showed no leukocytosis, mild normocytic anemia, chemistry showed mild hypochloremia, normal troponin. Patient has been seen here multiple times for anxiety. 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 Patient was giving a dose of hydroxyzine here. Patient appears no more calm. Patient will be discharged to follow up with PCP. Differential diagnosis: Anxiety, agitation, ACS, dehydration Need for hospitalization: Patient does not meet criteria for hospitalization. There are no social concerns with this patient. DX & DISP Disposition: Discharge Departure Impression: Primary Impression: Acute anxiety Condition: Stable Scripts Hydroxyzine HCl (Hydroxyzine HCl) 25 Mg Tablet 1 TAB PO TID for anxiety for 30 Days, #90 TAB 0 Refills Prov: ZEKE WALKER 07/15/25 Additional Instructions: Your labs were unremarkable. Please follow up with your primary doctor in 1-2 days. 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 FOLLOW-UP WITH PRIMARY CARE PROVIDER IN 1 TO 2 DAYS. TAKE MEDICATIONS DIRECTED HERE IN THE EMERGENCY ROOM. OKAY TO CONTINUE HOME MEDICATIONS UNLESS OTHERWISE DISCUSSED DURING YOUR VISIT IN THE EMERGENCY ROOM TODAY. RETURN TO YOUR NEAREST EMERGENCY ROOM IF SYMPTOMS WORSEN OR IF THERE IS NO IMPROVEMENT. CALL 911 IF YOU NEED IMMEDIATE ASSISTANCE. TAKE TYLENOL [id number] NEEDED AND IF NO CONTRAINDICATIONS ARE PRESENT. INCREASE ORAL HYDRATION. A WOUND CULTURE OR URINE CULTURE WAS ORDERED HERE IN THE EMERGENCY ROOM DEPARTMENT PLEASE FOLLOW-UP WITH PRIMARY CARE PROVIDER AND ADVISE THEM TO GET REPEAT PORTS FROM OUR FACILITY. IF YOU HAD ANY ETTA WRAP/SPLINTS THAT WERE APPLIED HERE, PLEASE DO NOT REMOVE THEM UNTIL YOU SEE YOUR PRIMARY CARE OR SPECIALTY. Referrals: SELF,REFERRAL (PCP) Time of Disposition: 02:37 I have reviewed the case, and I agree with, Diagnosis and Plan ZEKE WALKER Jul 15, 2025 00:49
--- NOTE | 2025-07-15 02:17 | EKG ---
[facility] Test Date: 2025-07-15 Test Time: 02:12:50 Pat Name: DAX EDMOND Department: [facility] Room: Gender: M Cloth Spreader: [id number] Requested By: ZEKE WALKER Order Number: [id number] Reading MD: Roberto Carlos Han Measurements Intervals [employer] Rate: 85 P: 52 AL: 155 QRS: -11 QRSD: 88 T: 1 QT: 409 QTc: 486 Interpretive Statements Sinus rhythm Compared to ECG 06/29/2025 05:11:09 Left ventricular hypertrophy no longer present Electronically Signed On 07-16-2025 10:54:47 CDT by Roberto Carlos Han Please click the below link to view image of tracing.
[2025-07-15 02:18] LABS: IMMATURE GRANULOCYTE ABSOLUTE 0.02 K/uL (0-1); NUCLEATED RED BLOOD CELLS 0.0 % (0.0-0.19); PLATELET COUNT (AUTO) 143 K/uL (130-400); RED BLOOD CELL COUNT(AUTO) 4.34 MIL/uL (4.50-6.20); RED CELL DISTRIBUTION WIDTH 18.6 % (11.0-15.5); WHITE BLOOD COUNT (AUTO) 7.7 K/uL (4.8-10.8)
[2025-07-15 02:27] LABS: CREATININE 0.7 mg/dL (0.5-1.3); GLOMERULAR FILTR. RATE CALC 119.0 mL/min (>90); GLUCOSE,RANDOM 134.0 mg/dL (70-105); SODIUM SERUM 136.0 mmol/L (136-145); UREA NITROGEN, BLOOD 6.0 mg/dL (7-18)
== END 2025-07-15 03:30 | disposition home or self-care (01) ==
LOC: EDH 00:15
DX: F41.9 Anxiety disorder, unspecified (principal); Z79.899 Other long term (current) drug therapy; Z98.890 Other specified postprocedural states
CPT/HCPCS: 36415; 80048; 84484; 85025; 93005; 99284

== ENCOUNTER 2025-08-24 01:45 | Inpatient (IN) | payer SELFPAY ==
[~2025-08-24] VITALS: Ht 182.9 cm; Wt 114.8 kg
[2025-08-24 02:14] LABS: IMMATURE GRANULOCYTE ABSOLUTE 0.03 K/uL (0-1); NUCLEATED RED BLOOD CELLS 0.0 % (0.0-0.19); PLATELET COUNT (AUTO) 113 K/uL (130-400); RED BLOOD CELL COUNT(AUTO) 4.06 MIL/uL (4.50-6.20); RED CELL DISTRIBUTION WIDTH 17.5 % (11.0-15.5); WHITE BLOOD COUNT (AUTO) 6.4 K/uL (4.8-10.8)
[2025-08-24 02:25] LABS: CREATININE 0.6 mg/dL (0.5-1.3); GLOMERULAR FILTR. RATE CALC 125.0 mL/min (>90); GLUCOSE,RANDOM 111.0 mg/dL (70-105); SODIUM SERUM 134.0 mmol/L (136-145); UREA NITROGEN, BLOOD 4.0 mg/dL (7-18)
--- NOTE | 2025-08-24 02:32 | ERN ---
General Chief Complaint: Multiple Complaints Stated Complaint: ABD PAIN W/ N X V AND SWELLING TO LOWER EXTREMITI Time Seen by MD: 02:09 History of Present Illness Initial Comments 39-year-old male history of hypertension here for evaluation of multiple complaints. Patient states that he has been having nausea, vomiting and generalized anxiety for the past two days. States the nausea and vomiting worsened today after he had small pizza. He had four episodes of vomiting and developed right upper quadrant pain thus he decided to come to the emergency room for evaluation. No fever. No cough. No one at home with similar symptoms. No chest pain or palpitations. Allergies: Coded Allergies: No Known Drug Allergies (Unverified Allergy, Unknown, 03/04/19) Home Meds Active Scripts Hydroxyzine HCl (Hydroxyzine HCl) 25 Mg Tablet, 1 TAB PO TID for anxiety for 30 Days, #90 TAB 0 Refills Prov:ZEKE WALKER CORN PICKER 07/15/25 Hydroxyzine HCl (Hydroxyzine HCl) 25 Mg Tablet, 1 TAB PO TID for anxiety for 10 Days, #30 TAB 0 Refills Prov:GEOFFREY LAU MD 06/29/25 Omeprazole (Omeprazole) 40 Mg Capsule.dr, 1 CAP PO DAILY for 30 Days, #30 CAP 0 Refills Prov:LONI JIMENEZ CORN PICKER 03/21/25 Ibuprofen (Ibuprofen 800 mg Tab) 800 Mg Tab, 800 MG PO Q8H PRN for fever or pain, #30 TAB 0 Refills Prov:LONI JIMENEZ CORN PICKER 03/21/25 Hydroxyzine HCl (Hydroxyzine HCl) 25 Mg Tablet, 1 TAB PO TID for anxiety for 30 Days, #90 TAB 0 Refills Prov:ZEKE WALKERP 11/25/24 Hydroxyzine HCl (Atarax) 25 Mg Tab, 25 MG PO TID for ANXIETY, #30 TAB Prov:ZOHRA GÓMEZ MD 12/23/22 Oseltamivir Phosphate (Tamiflu) 75 Mg Cap, 75 MG PO BID for 5 Days, #10 CAP Prov:ZOHRA GÓMEZ MD 12/23/22 Ibuprofen (Ibuprofen) 600 Mg Tablet, 600 MG PO Q6H PRN for PAIN, #30 TAB Prov:ZOHRA GÓMEZ MD 12/23/22 Hydroxyzine HCl (Hydroxyzine HCl) 25 Mg Tablet, 25 MG PO QID PRN for ANXIETY/AGITATION, #30 TAB 0 Refills Prov:AI REES MD 04/17/22 Hydroxyzine HCl (Hydroxyzine HCl) 50 Mg Tablet, 50 MG PO TID PRN for ANXIETY/AGITATION, #15 TAB Prov:MILLERMICHELLESANTIAGO POOL 02/19/22 Cyclobenzaprine HCl (Flexeril) 10 Mg Tab, 10 MG PO BID, #30 TAB Prov:JAS LARRY 08/21/21 Ibuprofen (Ibu) 400 Mg Tablet, 800 MG PO TIDAC, #60 TAB Prov:JAS LARRY 08/21/21 Past Medical History Past Medical History: Anxiety, Hypertension Past Surgical History: None Surgical History Other: LEFT FOOT SX Family History Family History: Negative Social History Social History: ETOH, Negative, Lives with family Gastrointestinal/Abdominal: (+) nausea, (+) vomiting, (+) abdominal pain Psych: (+) anxiety Physical Exam General Appearance: (+) no apparent distress Orientation: (+) alert, (+) oriented x 3 Eye: bilateral eye normal inspection, bilateral eye PERRL, bilateral eye EOMI Heart: (+) regular; (-) murmur Gastrointestinal: (+) soft, (+) tender (Right upper quadrant, epigastric) Extremities: (+) normal range of motion, (+) non-tender Neurologic/Psychiatric: (+) normal speech, (+) no motor defecits Results Laboratory and Microbiology Lab and Micro Result Laboratory Tests Test 08/24/25 02:03 White Blood Count 6.4 K/uL (4.8-10.8) Red Blood Count 4.06 MIL/uL (4.50-6.20) L Hemoglobin 11.8 g/dL (14.0-18.0) L Hematocrit 35.6 % (42-54) L Mean Corpuscular Volume 87.7 fL (79-99) Mean Corpuscular Hemoglobin 29.1 pg (27.0-33.0) Mean Corpuscular Hemoglobin Concent 33.1 g/dL (32.0-36.0) Red Cell Distribution Width 17.5 % (11.0-15.5) H Platelet Count 113 K/uL (130-400) L Mean Platelet Volume 9.5 fL (7.5-10.5) Immature Granulocyte % (Auto) 0.5 % (0-1) Neutrophils (%) (Auto) 62.1 % (40.0-77.0) Lymphocytes (%) (Auto) 23.8 % (21.0-51.0) Monocytes (%) (Auto) 9.9 % (3.0-13.0) Eosinophils (%) (Auto) 2.8 % (0.0-8.0) Basophils (%) (Auto) 0.9 % (0.0-5.0) Neutrophils # (Auto) 4.0 K/uL (1.8-7.7) Lymphocytes # (Auto) 1.5 K/uL (1.0-4.8) Monocytes # (Auto) 0.6 K/uL (0.1-1.0) Eosinophils # (Auto) 0.18 K/uL (0.00-0.70) Basophils # (Auto) 0.06 K/uL (0.00-0.20) Absolute Immature Granulocyte (auto 0.03 K/uL (0-1) Nucleated Red Blood Cells 0.0 % (0.0-0.19) Sodium Level 134 mmol/L (136-145) L Potassium Level 3.6 mmol/L (3.5-5.1) Chloride Level 100 mmol/L (101-111) L Carbon Dioxide Level 26 mmol/L (21-32) Blood Urea Nitrogen 4 mg/dL (7-18) L Creatinine 0.6 mg/dL (0.5-1.3) Glomerular Filtration Rate Calc 125 mL/min (>90) Random Glucose 111 mg/dL (70-105) H Total Calcium 7.8 mg/dL (8.5-10.1) L Total Bilirubin 2.0 mg/dL (0.2-1.0) H Direct Bilirubin 1.2 mg/dL (0.0-0.3) H Aspartate Amino Transf (AST/SGOT) 138 U/L (10-37) H Alanine Aminotransferase (ALT/SGPT) 64 U/L (12-78) Alkaline Phosphatase 297 U/L (50-136) H Total Protein 8.3 g/dL (6.0-8.3) Albumin 3.0 g/dL (3.5-5.0) L Lipase 72 U/L (16-77) MDM 39-year-old male here for evaluation of right upper quadrant pain. Has history of sludge in gallbladder. We will get repeat ultrasound and lab work. Pain to be controlled with the analgesic morphine. Disposition pending results of labs and imaging. Old imaging reviewed. Patient had a acute cholecystitis back in March of this year however was discharge. Because gallbladder has increased from 11.0 to 11.6 cm we will admit the patient at this time. Pain is controlled with morphine. Patient amenable to admission and possible cholecystectomy if General surgery teams as necessary ED Course Orders Procedure Category Date Status Time Cbc With Differential LAB 08/24/25 Complete 02:09 Basic Metabolic Panel LAB 08/24/25 Complete 02:09 Lipase LAB 08/24/25 Complete 02:18 Hepatic Function Panel LAB 08/24/25 Complete 02:18 Urinalysis Profile LAB 08/24/25 Logged 02:18 Drug Screen Urine LAB 08/24/25 Logged 02:18 Ondansetron 4mg Inj PHA 08/24/25 Complete (Zofran 4mg Inj) 02:30 Morphine 4mg Syg PHA 08/24/25 Complete (Morphine 4mg Syg) 02:30 Us Abdominal Ruq\Ltd US 08/24/25 Taken 02:18 Ondansetron 4mg Inj PHA 08/24/25 Complete (Zofran 4mg Inj) 02:26 Current Medications Medications (Trade) Dose Ordered Sig/Jarad Route PRN Reason Start Time Stop Time Status Last Admin Dose Admin Morphine Sulfate (morPHINE 4MG SYG) 4 mg ONCE ONCE IM 08/24/25 02:30 08/24/25 02:38 DC 08/24/25 02:44 Ondansetron HCl (zoFRAN 4MG INJ) 4 mg ONCE ONCE IVP 08/24/25 02:30 08/24/25 02:38 DC 08/24/25 02:39 Ondansetron HCl (zoFRAN 4MG INJ) 4 mg STK-MED ONCE .ROUTE 08/24/25 02:26 08/24/25 02:27 DC Vital Signs Date Time Temp Pulse Resp B/P (MAP) Pulse Ox O2 Delivery O2 Flow Rate FiO2 08/24/25 02:04 98.2 86 18 140/91 98 Room Air* 0 21 08/24/25 01:47 98.2 89 20 136/87 96 Room Air DX & DISP Disposition: Inpatient Departure Impression: Primary Impression: Gallbladder sludge Additional Impression: Symptomatic cholelithiasis Condition: Stable Referrals: SELF,REFERRAL (PCP) SONNY BRUNER MD Aug 24, 2025 02:32
[2025-08-24 02:40] LABS: ASPARTATE AMINOTRANSFERASE 138.0 U/L (10-37); TOTAL PROTEIN, SERUM 8.3 g/dL (6.0-8.3)
--- NOTE | 2025-08-24 04:06 | HP ---
[facility] HISTORY AND PHYSICAL Date of Service: Aug 24, 2025 Time of Service: 04:03 PCP: Self Referral HISTORY OF PRESENT ILLNESS: This is a 39-year-old male with past medical history of anxiety disorder and hypertension who presents to the ED for complaints of right upper quadrant pain associated with nausea vomiting does last Saturday.Patient states pain is on and off and he has been taking Naproxen and Ibuprofen but pain got worsened today.Patient reports abdominal pain came back after eating 2 pizza bites.Patient reported having 3 episodes of nonbloody vomiting and patient also reports having fever yesterday at home with a temperature of 1:00 pm.patient reports he has similar episodes in the past last 03/21/2025. Seen and examined patient in the ER awake,alert and coherent,appears uncomfortable,7/10 pain level.Patient denies chest pain,palpitation ,shortness of breath,and diarrhea. Latest vital signs temperature 98.2, heart rate 86, blood pressure 140/91 saturation 98% on room air. Abdominal ultrasound result revealed mildly hydropic gallbladder. No gallstone is evident at this time pericholecystic fluid is evident. No definite acute cholecystitis is evident at this time commit HIDA scan for further evaluation. Hepatomegaly and hepatic steatosis. Labs: Hemoglobin 11, hematocrit 35, platelet count 113. Sodium 134, chloride 100, total calcium 7.8, total bilirubin 2.0, direct bilirubin 1.2, AST 138, alkaline phosphatase 297, albumin three pace 72. While in the ER patient received morphine 4 mg IV, Zofran 4 mg IV admit patient for further medical management. REVIEW OF SYSTEMS CONSTITUTIONAL: Denies fevers, chills, or night sweats. No unintentional weight loss reported. NEUROLOGICAL: Denies headache, amaurosis fugax, motor weakness, sensory deficit, vertigo/spinning sensation, gait abnormalities, or tremors. ENT: No hearing loss, otalgia, otorrhea, rhinitis, rhinorrhea, hoarseness, or sore throat. CARDIOVASCULAR: Denies any exertional angina, dyspnea on exertion, orthopnea, paroxysmal nocturnal dyspnea, palpitations, life-threatening arrhythmias, claudication. PULMONARY: Denies any shortness of breath, cough, phlegm/sputum, hemoptysis, pleuritic chest pain. SLEEP: Denies morning headaches, daytime somnolence or napping. Denies difficulty falling asleep, staying asleep, waking from sleep. Denies knowledge of snoring. GASTROINTESTINAL: Complained of right upper quadrant abdominal pain nausea and vomiting Denies any type of dysphagia to either liquids or solids. Deniespyrosis, early satiety, diarrhea, constipation, or changes in stool consistency or caliber. Denies coffee-ground emesis, hematemesis, hematochezia, or melanotic stools. GENITOURINARY: Denies frequency, urgency, nocturia, hematuria or incontinence (Storage/Irritative symptoms.) Low urinary stream, straining to void, urinary intermittency or hesitancy, splitting of the voiding stream, terminal dribbling. ENDOCRINOLOGIC: Denies polyuria, polydipsia, polyphagia or heat/cold intolerances. HEMATOLOGIC: Denies thrombophilia/previous clots, or coagulopathy/bleeding disorders. ONCOLOGIC: Denies personal history of malignancy. DERMATOLOGIC: Denies rashes or pruritus. PSYCHIATRIC: Denies any suicidal or homicidal ideation. Denies hallucinations. PAST MEDICAL HISTORY: [ Anxiety and hypertension ] PAST SURGICAL HISTORY: [left foot surgery ] PAST SOCIAL HISTORY: [Patient lives with . Patient denies cigarette and recreational drug use . Patient admits to drinking four glass of wine every other day and last consumption was yesterday. ] FAMILY HISTORY: [ Noncontributory ] Coded Allergies: No Known Drug Allergies (Unverified Allergy, Unknown, 03/04/19) PHYSICAL EXAM GENERAL APPEARANCE: The patient is awake, alert, and oriented, in no acute cardiopulmonary distress. NEUROLOGICAL: Cranial nerves II-XII grossly intact. Motor is 5/5 in bilateral upper and lower extremities proximal to distal. No sensory deficits. HEENT: Face is symmetric. Pupils are equal and reactive. Extraocular movements are intact. NECK: Supple. No JVD. No thyromegaly. No submental, submandibular, pre- /postauricular, occipital or supraclavicular lymphadenopathy. CHEST: Normal chest expansion. No Telemetry. LUNGS: Absence of any rales, rhonchi or any wheezing. CARDIOVASCULAR: Regular. S1 and S2 normal. No appreciable rubs, murmurs or gallops. ABDOMEN: Tenderness around right upper quadrant palpation Soft and nondistended. There is no voluntary guarding, or rigidity. : Deferred. No Hamilton. EXTREMITIES: Non-edematous and not cyanotic. No clubbing. Good capillary refill. SKIN: No skin breakdown. Vital Sign (Last 24 Hours) 08/24/25 02:04 Temp 98.2 Pulse 86 Resp 18 B/P (MAP) 140/91 Pulse Ox 98 O2 Delivery Room Air* O2 Flow Rate 0 FiO2 21 LABS: Laboratory: Test 08/24/25 02:03 Range/Units White Blood Count 6.4 4.8-10.8 K/uL Red Blood Count 4.06 L 4.50-6.20 MIL/uL Hemoglobin 11.8 L 14.0-18.0 g/dL Hematocrit 35.6 L 42-54 % Mean Corpuscular Volume 87.7 79-99 fL Mean Corpuscular Hemoglobin 29.1 27.0-33.0 pg Mean Corpuscular Hemoglobin Concent 33.1 32.0-36.0 g/dL Red Cell Distribution Width 17.5 H 11.0-15.5 % Platelet Count 113 L 130-400 K/uL Mean Platelet Volume 9.5 7.5-10.5 fL Immature Granulocyte % (Auto) 0.5 0-1 % Neutrophils (%) (Auto) 62.1 40.0-77.0 % Lymphocytes (%) (Auto) 23.8 21.0-51.0 % Monocytes (%) (Auto) 9.9 3.0-13.0 % Eosinophils (%) (Auto) 2.8 0.0-8.0 % Basophils (%) (Auto) 0.9 0.0-5.0 % Neutrophils # (Auto) 4.0 1.8-7.7 K/uL Lymphocytes # (Auto) 1.5 1.0-4.8 K/uL Monocytes # (Auto) 0.6 0.1-1.0 K/uL Eosinophils # (Auto) 0.18 0.00-0.70 K/uL Basophils # (Auto) 0.06 0.00-0.20 K/uL Absolute Immature Granulocyte (auto 0.03 0-1 K/uL Nucleated Red Blood Cells 0.0 0.0-0.19 % Sodium Level 134 L 136-145 mmol/L Potassium Level 3.6 3.5-5.1 mmol/L Chloride Level 100 L 101-111 mmol/L Carbon Dioxide Level 26 21-32 mmol/L Blood Urea Nitrogen 4 L 7-18 mg/dL Creatinine 0.6 0.5-1.3 mg/dL Glomerular Filtration Rate Calc 125 >90 mL/min Random Glucose 111 H 70-105 mg/dL Total Calcium 7.8 L 8.5-10.1 mg/dL Total Bilirubin 2.0 H 0.2-1.0 mg/dL Direct Bilirubin 1.2 H 0.0-0.3 mg/dL Aspartate Amino Transf (AST/SGOT) 138 H 10-37 U/L Alanine Aminotransferase (ALT/SGPT) 64 12-78 U/L Alkaline Phosphatase 297 H 50-136 U/L Total Protein 8.3 6.0-8.3 g/dL Albumin 3.0 L 3.5-5.0 g/dL Lipase 72 16-77 U/L DIAGNOSTICS / RADIOLOGY: [ ] ASSESSMENT: Suspected acute cholecystitis versus choledocholithiasis POA Hypertension POA Anxiety disorder POA Obesity POA Acute normocytic normochromic anemia POA Acute thrombocytopenia POA Alcoholism POA PLAN: We will admit patient in medical surgical Start on Rocephin and Flagyl for broad-spectrum coverage We will keep nothing by mouth We will start on famotidine 20 mg IV daily for GI prophylaxis Start NS at 100 mL/hour x2 bags and re-evaluate We will replace electrolytes as needed per protocol We will add prn medication for fever,pain,cough , nausea and vomiting Monitor for signs of alcohol withdrawal Initiate CIWA protocol We will seek general surgery consultation We will request for HIDA scan We will request labs in am Further orders to follow depending on above results Case discussed with attending physician and came up with above treatment and plan of care. ADVANCED CARE PLANNING 1. Which of the following were discussed? Hospice Care - No Therapeutic options - Yes Advance Directives - No Other discussions - 2. Discussed with who? Patient and 3. Voluntary nature of this service was explained to the patient? Yes 4. Amount of time spent - __22 min 5. Reviewed by Physician? (if this service was performed by NPP) Yes Patient seen and examined by me. Agree with note by VP [employer] SEE ADDITIONAL ORDERS PER CHART DISCUSSED WITH NURSING STAFF CARLY MANRIQUE Aug 24, 2025 04:06
--- NOTE | 2025-08-24 04:20 | HMCIMG ---
EXAM: US Abdomen, Right Upper Quadrant. CLINICAL HISTORY: h/o gb sludge r/o suad TECHNIQUE: Right upper quadrant sonography performed with image documentation. COMPARISON: None provided. FINDINGS: Hepatomegaly. The right hepatic lobe measures 21.4 cm craniocaudally. Increased echogenicity of the liver parenchyma, compatible with fatty liver. Hydropic gallbladder measures up to 11.6 cm in length with a wall thickness of 3 mm (unable to determine Salguero sign as the patient is on pain medication). Pulsatile hepatopetal flow in the portal vein with a peak systolic velocity of 10.6 cm/s. The CBD is normal in caliber and measures up to 5 mm in diameter. The right kidney is normal in size and texture. It measures 12.4 x 5.4 x 5.0 cm. Suboptimal evaluation due to the increased intestinal air. IMPRESSION: Mildly hydropic gallbladder. No gallstone is evident at this time (suboptimal evaluation due to the bowel gases). No pericholecystic fluid is evident. No definite acute cholecystitis is evident at this time. Recommend a HIDA scan for further evaluation. Hepatomegaly and hepatic steatosis. /[place]
[2025-08-24] MEDS: 0.9%NACL 1000ML 1,000 ML IV SCH (05:35)
[2025-08-24 06:06] LABS: APPEARANCE,URINE CLEAR (CLEAR); GLUCOSE, URINE (UA) NEGATIVE (NEGATIVE); LEUKOCYTE ESTERASE ,URINE NEGATIVE Leu/uL (NEGATIVE); NITRATE,URINE NEGATIVE (NEGATIVE); OCCULT BLOOD,URINE NEGATIVE (NEGATIVE)
[2025-08-24 06:09] LABS: AMPHET/METH SCREEN,URINE NEGATIVE (NEGATIVE); BARBITURATE SCREEN, URINE NEGATIVE (NEGATIVE); CANNABINOID SCREEN,URINE NEGATIVE (NEGATIVE); COCAINE SCREEN,URINE NEGATIVE (NEGATIVE)
[2025-08-24] MEDS: FAMOTIDINE 20MG VIAL IV SCH (09:00)
--- NOTE | 2025-08-24 09:31 | NUR ---
REPORT GIVEN TO DESIRE AT THIS TIME.
[2025-08-24 10:00] VITALS: BP 158/99; PULSE 87; RESP 18; TEMP 98.2
[2025-08-24] MEDS ORDERED: PHARMACY COMMUNICATION MISC PRN (13:00)
--- NOTE | 2025-08-24 13:05 | PN ---
[facility] PROGRESS NOTE Date of Service: Aug 24, 2025 Time of Service: 12:39 HISTORY OF PRESENT ILLNESS: This is a 39-year-old male with past medical history of anxiety disorder and hypertension who presents to the ED for complaints of right upper quadrant pain associated with nausea vomiting does last Saturday.Patient states pain is on and off and he has been taking Naproxen and Ibuprofen but pain got worsened today.Patient reports abdominal pain came back after eating 2 pizza bites.Patient reported having 3 episodes of nonbloody vomiting and patient also reports having fever yesterday at home with a temperature of 1:00 pm.patient reports he has similar episodes in the past last 03/21/2025. Seen and examined patient in the ER awake,alert and coherent,appears uncomfortable,7/10 pain level.Patient denies chest pain,palpitation ,shortness of breath,and diarrhea. Latest vital signs temperature 98.2, heart rate 86, blood pressure 140/91 saturation 98% on room air. Abdominal ultrasound result revealed mildly hydropic gallbladder. No gallstone is evident at this time pericholecystic fluid is evident. No definite acute cholecystitis is evident at this time commit HIDA scan for further evaluation. Hepatomegaly and hepatic steatosis. Labs: Hemoglobin 11, hematocrit 35, platelet count 113. Sodium 134, chloride 100, total calcium 7.8, total bilirubin 2.0, direct bilirubin 1.2, AST 138, alkaline phosphatase 297, albumin three pace 72. While in the ER patient received morphine 4 mg IV, Zofran 4 mg IV admit patient for further medical management. SUBJECTIVE: 08/24/25: Patient was seen and evaluated in ED 50. Patient was in alert, awake and oriented. Patient appeared to be in distress due to pain in right upper quadrant of abdomen and epigastrium. Patient reports the pain increases with eating food. Patient reports having chills but denies pain. Patient reports nausea associated with pain. Patient reports he had diarrhea today in the morning but no prior episode of change in bowel movement. Patient denies any burning micturition, change in urinary frequency or dysphagia. Pertinent labs- T. bilirubin 2.0, D. bilirubin- 1.2, AST-138, ALT-64, ALP-297, Lipase -72. REVIEW OF SYSTEMS CONSTITUTIONAL: Denies fevers, chills, or night sweats. No unintentional weight loss reported. NEUROLOGICAL: Denies headache, amaurosis fugax, motor weakness, sensory deficit, vertigo/spinning sensation, gait abnormalities, or tremors. ENT: No hearing loss, otalgia, otorrhea, rhinitis, rhinorrhea, hoarseness, or sore throat. CARDIOVASCULAR: Denies any exertional angina, dyspnea on exertion, orthopnea, paroxysmal nocturnal dyspnea, palpitations, life-threatening arrhythmias, claudication. PULMONARY: Denies any shortness of breath, cough, phlegm/sputum, hemoptysis, pleuritic chest pain. SLEEP: Denies morning headaches, daytime somnolence or napping. Denies difficu lty falling asleep, staying asleep, waking from sleep. Denies knowledge of snoring. GASTROINTESTINAL: Complained of right upper quadrant abdominal pain nausea and vomiting Denies any type of dysphagia to either liquids or solids. Deniespyrosis, early satiety, diarrhea, constipation, or changes in stool consistency or caliber. Denies coffee-ground emesis, hematemesis, hematochezia, or melanotic stools. GENITOURINARY: Denies frequency, urgency, nocturia, hematuria or incontinence (Storage/Irritative symptoms.) Low urinary stream, straining to void, urinary intermittency or hesitancy, splitting of the voiding stream, terminal dribbling. ENDOCRINOLOGIC: Denies polyuria, polydipsia, polyphagia or heat/cold intolerances. HEMATOLOGIC: Denies thrombophilia/previous clots, or coagulopathy/bleeding disorders. ONCOLOGIC: Denies personal history of malignancy. DERMATOLOGIC: Denies rashes or pruritus. PSYCHIATRIC: Denies any suicidal or homicidal ideation. Denies hallucinations. PHYSICAL EXAM GENERAL APPEARANCE: The patient is awake, alert, and oriented, in no acute cardiopulmonary distress. NEUROLOGICAL: Cranial nerves II-XII grossly intact. Motor is 5/5 in bilateral upper and lower extremities proximal to distal. No sensory deficits. HEENT: Face is symmetric. Pupils are equal and reactive. Extraocular movements are intact. NECK: Supple. No JVD. No thyromegaly. No submental, submandibular, pre-/postauricular, occipital or supraclavicular lymphadenopathy. CHEST: Normal chest expansion. No Telemetry. LUNGS: Absence of any rales, rhonchi or any wheezing. CARDIOVASCULAR: Regular. S1 and S2 normal. No appreciable rubs, murmurs or gallops. ABDOMEN: Tenderness around right upper quadrant palpation and epigastrium. Rigidity was present on the Right upper quadrant and epigastrium. There is no voluntary guarding or rebound tenderness. : Deferred. No Hamilton. EXTREMITIES: Non-edematous and not cyanotic. No clubbing. Good capillary refill. SKIN: No skin breakdown. Vital Signs (last 8hr) Date Time Temp Pulse Resp B/P (MAP) Pulse Ox O2 Delivery O2 Flow Rate FiO2 08/24/25 10:00 98.2 87 18 158/99 95 Room Air 08/24/25 09:41 98.1 80 16 154/90 98 Room Air* 0 21 08/24/25 07:19 98.2 72 16 128/84 98 Room Air* 0 21 08/24/25 06:06 98.4 82 18 132/86 97 Room Air* 0 21 LABS: Laboratory: Test 08/24/25 05:32 08/24/25 02:03 Range/Units Urine Color YELLOW YELLOW Urine Appearance CLEAR CLEAR Urine pH 8.5 H 5.0-8.0 Urine Specific [place] 1.020 1.001-1.031 Urine Protein 10 H NEGATIVE mg/dL Urine Glucose (UA) NEGATIVE NEGATIVE mg/dL Urine Ketones NEGATIVE NEGATIVE mg/dL Urine Occult Blood NEGATIVE NEGATIVE Urine Nitrate NEGATIVE NEGATIVE Urine Bilirubin NEGATIVE NEGATIVE mg/dL Urine Urobilinogen 0.2 0.2-1.0 mg/dL Urine Leukocyte Esterase NEGATIVE NEGATIVE [place]/uL Urine RBC 0-1 0-1 /HPF Urine WBC 0-1 0-1 /HPF Urine Bacteria None None Seen /HPF Urine Opiates Screen POSITIVE H NEGATIVE Urine Barbiturates Screen NEGATIVE NEGATIVE Urine Phencyclidine Screen NEGATIVE NEGATIVE Urine Amphetamines Screen NEGATIVE NEGATIVE Urine Benzodiazepines Screen NEGATIVE NEGATIVE Urine Cocaine Screen NEGATIVE NEGATIVE Urine Marijuana (THC) Screen NEGATIVE NEGATIVE White Blood Count 6.4 4.8-10.8 K/uL Red Blood Count 4.06 L 4.50-6.20 MIL/uL Hemoglobin 11.8 L 14.0-18.0 g/dL Hematocrit 35.6 L 42-54 % Mean Corpuscular Volume 87.7 79-99 fL Mean Corpuscular Hemoglobin 29.1 27.0-33.0 pg Mean Corpuscular Hemoglobin Concent 33.1 32.0-36.0 g/dL Red Cell Distribution Width 17.5 H 11.0-15.5 % Platelet Count 113 L 130-400 K/uL Mean Platelet Volume 9.5 7.5-10.5 fL Immature Granulocyte % (Auto) 0.5 0-1 % Neutrophils (%) (Auto) 62.1 40.0-77.0 % Lymphocytes (%) (Auto) 23.8 21.0-51.0 % Monocytes (%) (Auto) 9.9 3.0-13.0 % Eosinophils (%) (Auto) 2.8 0.0-8.0 % Basophils (%) (Auto) 0.9 0.0-5.0 % Neutrophils # (Auto) 4.0 1.8-7.7 K/uL Lymphocytes # (Auto) 1.5 1.0-4.8 K/uL Monocytes # (Auto) 0.6 0.1-1.0 K/uL Eosinophils # (Auto) 0.18 0.00-0.70 K/uL Basophils # (Auto) 0.06 0.00-0.20 K/uL Absolute Immature Granulocyte (auto 0.03 0-1 K/uL Nucleated Red Blood Cells 0.0 0.0-0.19 % Sodium Level 134 L 136-145 mmol/L Potassium Level 3.6 3.5-5.1 mmol/L Chloride Level 100 L 101-111 mmol/L Carbon Dioxide Level 26 21-32 mmol/L Blood Urea Nitrogen 4 L 7-18 mg/dL Creatinine 0.6 0.5-1.3 mg/dL Glomerular Filtration Rate Calc 125 >90 mL/min Random Glucose 111 H 70-105 mg/dL Hemoglobin A1c 5.4 4.0-6.0 % Estimated Average Glucose (eAG) 108 70-126 mg/dL Total Calcium 7.8 L 8.5-10.1 mg/dL Total Bilirubin 2.0 H 0.2-1.0 mg/dL Direct Bilirubin 1.2 H 0.0-0.3 mg/dL Aspartate Amino Transf (AST/SGOT) 138 H 10-37 U/L Alanine Aminotransferase (ALT/SGPT) 64 12-78 U/L Alkaline Phosphatase 297 H 50-136 U/L Total Protein 8.3 6.0-8.3 g/dL Albumin 3.0 L 3.5-5.0 g/dL Lipase 72 16-77 U/L Thyroid Stimulating Hormone (TSH) 3.05 0.36-3.74 uIU/mL Current Medications Medications (Trade) Dose Ordered Sig/Jarad Route PRN Reason Start Time Stop Time Status Last Admin Dose Admin Ceftriaxone Sodium (ROCEphine 1G INJ) 1 gm Q24H IV 08/24/25 05:00 09/03/25 04:59 08/24/25 05:35 1 GM Famotidine (Pepcid 20mg Vial) 20 mg DAILY IV 08/24/25 09:00 09/23/25 08:59 Ketorolac Tromethamine (toRADol) 15 mg Q6H PRN IV MODERATE PAIN (4-6) 08/24/25 06:30 08/29/25 06:29 Metronidazole/ Sodium Chloride 100 ml @ 100 mls/hr Q8H IV 08/24/25 05:00 09/03/25 04:59 08/24/25 05:59 100 MLS/HR Morphine Sulfate (morPHINE 2MG SYG) 2 mg Q4H PRN IV SEVERE PAIN (7-10) 08/24/25 05:00 08/31/25 04:59 Ondansetron HCl (zoFRAN 4MG INJ) 4 mg Q6H PRN IV NAUSEA/VOMITING 08/24/25 05:00 09/23/25 04:59 Sodium Chloride 1,000 ml @ 100 mls/hr Q10H IV 08/24/25 05:00 09/23/25 04:59 08/24/25 05:35 100 MLS/HR DIAGNOSTICS / RADIOLOGY: [address] [address] IMAGING REPORT Signed PATIENT: DAX EDMOND MR#: [id number] : 1985 SEX: M AGE: 39 LOCATION: [facility] ORDER 9 STATUS: REG ER REPORT#: [id number] SERVICE 7 REASON: h/o gb sludge r/o suad ORDERING PHYSICIAN: SONNY BRUNER MD PROCEDURE: [id number] - US ABDOMINAL RUQ\LTD EXAM: US Abdomen, Right Upper Quadrant. CLINICAL HISTORY: h/o gb sludge r/o suad TECHNIQUE: Right upper quadrant sonography performed with image documentation. COMPARISON: None provided. FINDINGS: Hepatomegaly. The right hepatic lobe measures 21.4 cm craniocaudally. Increased echogenicity of the liver parenchyma, compatible with fatty liver. Hydropic gallbladder measures up to 11.6 cm in length with a wall thickness of 3 mm (unable to determine Salguero sign as the patient is on pain medication). Pulsatile hepatopetal flow in the portal vein with a peak systolic velocity of 10.6 cm/s. The CBD is normal in caliber and measures up to 5 mm in diameter. The right kidney is normal in size and texture. It measures 12.4 x 5.4 x 5.0 cm. Suboptimal evaluation due to the increased intestinal air. IMPRESSION: Mildly hydropic gallbladder. No gallstone is evident at this time (suboptimal evaluation due to the bowel gases). No pericholecystic fluid is evident. No definite acute cholecystitis is evident at this time. Recommend a HIDA scan for further evaluation. Hepatomegaly and hepatic steatosis. /[place] DICTATED BY: SEVERO DIAS Jr., MD DATE: 08/24/25517 ELECTRONICALLY SIGNED BY: SEVERO DIAS Jr., MD DATE: 08/24/25517 ASSESSMENT: Suspected acute cholecystitis versus choledocholithiasis POA Hypertension POA Anxiety disorder POA Obesity POA Acute normocytic normochromic anemia POA Acute thrombocytopenia POA Alcoholism POA PLAN: Suspected acute cholecystitis versus choledocholithiasis POA: * On presentation labs show T. bilirubin 2.0, D. bilirubin- 1.2, AST-138, ALT- 64, ALP-297, Lipase -72. Vitals temperature 98.2, heart rate 86, blood pressure 140/91 saturation 98% on room air. * Abdominal US was ordered, results show mildly hydropic gallbladder with no gallstone was evident. No pericholecystic fluid was evident. No definite acute cholecystitis was evident. * HIDA scan was ordered, pending results. * MRCP was ordered, pending results. * General surgery was consulted, will follow their recommendations. * Patient was started on broad spectrum antibiotics Ceftriaxone 1gm IV (day 1), Metronidazole (day 1) * Patient was started on IV fluids with Sodium Chloride. * Patient is NPO * Patient started on Morphine 2mg PRN, Ketorolac 15mg PRN for analgesia. * Patient started on Ondansetron 4mg for nausea and vomiting. Alcoholism POA Initiated [facility] protocol Will Monitor for signs of alcohol withdrawal Supportive measures: We will replace electrolytes as needed per protocol. Started on famotidine 20 mg IV daily for GI prophylaxis. ATTESTATION BY PHYSICIAN I have seen and examined the patient. I reviewed the documentation, medical decision making, and treatment plan as noted by the resident physician above. I agree with the findings and plan of care. CAMILLA GALVEZ MD, SHAJI MD Aug 24, 2025 13:05
[2025-08-24 14:46] LABS: HEPATITIS A IGM ANTIBODY Non-Reactive (Nonreactive); HEPATITIS B CORE IGM ANTIBODY Non-Reactive (Negative)
--- NOTE | 2025-08-24 14:56 | NUR ---
DCP:HOME Pt currently lives at home with his Elza Stevens [phone]. Pt denies any DME, home health, or provider services. Pt states that he is able to complete ADLs independently. Pt does not have a PCP however states that he recently got insurance and will be getting a PCP. At DC pt will want to go home and family can assist with transportation.
[2025-08-24 16:00] VITALS: BP 149/96; PULSE 79; RESP 18; TEMP 99.6
[2025-08-24] MEDS ORDERED: VALS160T29 PO (18:24)
--- NOTE | 2025-08-24 19:27 | CONS ---
GENERAL SURGERY CONSULTATION NOTE DATE OF CONSULTATION: Aug 24, 2025 TIME OF CONSULTATION: 19:27 CONSULTING SERVICE: Camden Randolph MD REQUESTING PHYSICAIN: [ ] REASON FOR CONSULTATION: [ ] Abdominal pain Acute cholecystitis HISTORY OF PRESENT ILLNESS: [ ] 39-year-old male who presented with abdominal pain Pain started two days prior associated with nausea and vomiting The sac similar episode in the past last episode was about two months ago He also complained of bloatedness PAST MEDICAL HISTORY: [ ] Hypertension Anxiety PAST SURGICAL HISTORY: [ ] Foot surgery FAMILY HISTORY: [ ] No family history of hypertension or diabetes SOCIAL HISTORY: [ ] No smoking Occasional alcohol Current Medications Medications (Trade) Dose Ordered Sig/Jarad Route Start Time Stop Time Status Last Admin Dose Admin Ceftriaxone Sodium (ROCEphine 1G INJ) 1 gm Q24H IV 08/24/25 05:00 09/03/25 04:59 08/24/25 05:35 1 GM Famotidine (Pepcid 20mg Vial) 20 mg DAILY IV 08/24/25 09:00 09/23/25 08:59 Metronidazole/ Sodium Chloride 100 ml @ 100 mls/hr Q8H IV 08/24/25 05:00 09/03/25 04:59 08/24/25 14:03 100 MLS/HR Sodium Chloride 1,000 ml @ 100 mls/hr Q10H IV 08/24/25 05:00 09/23/25 04:59 08/24/25 14:15 100 MLS/HR Thiamine HCl (Vitamin B-1) 100 mg DAILY PO 08/25/25 09:00 09/24/25 08:59 Allergies: Coded Allergies: No Known Drug Allergies (Unverified Allergy, Unknown, 03/04/19) REVIEW OF SYSTEMS: ART PREPARATOR: [Denies headaches or blurring of vision.] RESP: [No cough, chest pain or SOB.] CVS: [No palpitaions.] GI: [abdominal pain with nausea and vomiting, no diarrhea or constipation.] MODE: [No dysuria or hematuria.] Musculoskeletal: [No swelling or joint pain.] BACK: [No pain or swelling.] All other systems are reviewed and essentially negative pertinent positives in HPI. PHYSICAL EXAMINATION: GENERAL: [Patient is lying comfortably in bed, not in any obvious distress.] HEAD: [Normal with no signs of head trauma.] EYES: [Not pale not jaundiced afebrile to touch.] ENT: [ Normal.] NECK: [Supple,no tenderness,no lymphadenopathy,no masses,no thyromegaly ,no bruits, no JVD.] LUNGS: [Clear breath sounds bilaterally. No wheezes, rales, or rhonchi.] HEART: [Regular rate and rhythm. Normal S1 and S2, without murmurs, rub or gallop.] VASC: [No edema. Peripheral pulses normal and equal in all extremities.] ABD: [Bowel sounds present,soft, RUQ tender, no masses, no organomegaly.] : [Normal, no suprapubic tenderness.] LYMPH: [No lymphadenopathy noted.] EXT: [ Warm soft, non tender.] SKIN: [ No rashes or lesions.] NEURO: [ Awake Alert and oriented x3.] Vital Signs (last 8hr) Date Time Temp Pulse Resp B/P (MAP) Pulse Ox O2 Delivery O2 Flow Rate FiO2 08/24/25 16:00 99.7 79 18 149/96 95 Room Air LABORATORY: [ ] Hematology Labs: Test 08/24/25 02:03 Range/Units White Blood Count 6.4 4.8-10.8 K/uL Red Blood Count 4.06 L 4.50-6.20 MIL/uL Hemoglobin 11.8 L 14.0-18.0 g/dL Hematocrit 35.6 L 42-54 % Mean Corpuscular Volume 87.7 79-99 fL Mean Corpuscular Hemoglobin 29.1 27.0-33.0 pg Mean Corpuscular Hemoglobin Concent 33.1 32.0-36.0 g/dL Red Cell Distribution Width 17.5 H 11.0-15.5 % Platelet Count 113 L 130-400 K/uL Mean Platelet Volume 9.5 7.5-10.5 fL Immature Granulocyte % (Auto) 0.5 0-1 % Neutrophils (%) (Auto) 62.1 40.0-77.0 % Lymphocytes (%) (Auto) 23.8 21.0-51.0 % Monocytes (%) (Auto) 9.9 3.0-13.0 % Eosinophils (%) (Auto) 2.8 0.0-8.0 % Basophils (%) (Auto) 0.9 0.0-5.0 % Neutrophils # (Auto) 4.0 1.8-7.7 K/uL Lymphocytes # (Auto) 1.5 1.0-4.8 K/uL Monocytes # (Auto) 0.6 0.1-1.0 K/uL Eosinophils # (Auto) 0.18 0.00-0.70 K/uL Basophils # (Auto) 0.06 0.00-0.20 K/uL Absolute Immature Granulocyte (auto 0.03 0-1 K/uL Nucleated Red Blood Cells 0.0 0.0-0.19 % Chemistry Labs: Test 08/24/25 02:03 Range/Units Sodium Level 134 L 136-145 mmol/L Potassium Level 3.6 3.5-5.1 mmol/L Chloride Level 100 L 101-111 mmol/L Carbon Dioxide Level 26 21-32 mmol/L Blood Urea Nitrogen 4 L 7-18 mg/dL Creatinine 0.6 0.5-1.3 mg/dL Glomerular Filtration Rate Calc 125 >90 mL/min Random Glucose 111 H 70-105 mg/dL Hemoglobin A1c 5.4 4.0-6.0 % Estimated Average Glucose (eAG) 108 70-126 mg/dL Total Calcium 7.8 L 8.5-10.1 mg/dL Total Bilirubin 2.0 H 0.2-1.0 mg/dL Direct Bilirubin 1.2 H 0.0-0.3 mg/dL Aspartate Amino Transf (AST/SGOT) 138 H 10-37 U/L Alanine Aminotransferase (ALT/SGPT) 64 12-78 U/L Alkaline Phosphatase 297 H 50-136 U/L Total Protein 8.3 6.0-8.3 g/dL Albumin 3.0 L 3.5-5.0 g/dL Lipase 72 16-77 U/L Thyroid Stimulating Hormone (TSH) 3.05 0.36-3.74 uIU/mL DIAGNOSTICS / RADIOLOGY: [Copy/Paste Echos/Imaging Report here] ASSESSMENT: [] Abdominal pain Biliary dyskinesia PLAN: [] /IVF/IV ANTIOBIOTICS Trial of diet CAMDEN RANDOLPH MD Aug 24, 2025 19:27
[2025-08-24 19:34] VITALS: O2SAT 98
[2025-08-24 20:00] VITALS: BP 146/89; PULSE 83; RESP 19; TEMP 98.3
--- NOTE | 2025-08-24 21:11 | HMCIMG ---
Exam: Hepatobiliary scan. Comparison: None. History: Suspected acute cholecystitis. Findings: After administration of 7.0 mCi of technetium 99 Mebrofenin IV, images were obtained over the next 60 min at 5-minute intervals. This demonstrates visualization of activity in the liver, which proceeds into the biliary tree, gallbladder, and proximal small bowel. Following the administration of 2.5 mcg Sincalide IV over 30 min, additional images at 120 sec increments were performed for 30 min. The gallbladder ejection fraction is 29% (abnormal < 38%). Symptoms of administration: None. IMPRESSION: Scan findings are suggestive of gall bladder dyskinesia with an ejection fraction of 29%. /Colby
[2025-08-24] MEDS: ZOSYN 3.375GM +NS 50ML IVPB SCH (21:22)
[2025-08-24 22:00] VITALS: BP 146/89; PULSE 83; RESP 19; TEMP 98.3
[2025-08-25] VITALS (9 sets, daily range): BP systolic 118–152; BP diastolic 58–102; PULSE 71–92; RESP 12–20; TEMP 97.9–98.3; O2SAT 96–97
[2025-08-25 05:30] LABS: IMMATURE GRANULOCYTE ABSOLUTE 0.03 K/uL (0-1); NUCLEATED RED BLOOD CELLS 0.0 % (0.0-0.19); PLATELET COUNT (AUTO) 120 K/uL (130-400); RED BLOOD CELL COUNT(AUTO) 4.11 MIL/uL (4.50-6.20); RED CELL DISTRIBUTION WIDTH 17.3 % (11.0-15.5); WHITE BLOOD COUNT (AUTO) 7.3 K/uL (4.8-10.8)
[2025-08-25 06:06] LABS: ASPARTATE AMINOTRANSFERASE 152.0 U/L (10-37); CREATININE 0.7 mg/dL (0.5-1.3); GLOMERULAR FILTR. RATE CALC 119.0 mL/min (>90); GLUCOSE,RANDOM 91.0 mg/dL (70-105); SODIUM SERUM 129.0 mmol/L (136-145); TOTAL PROTEIN, SERUM 8.1 g/dL (6.0-8.3); UREA NITROGEN, BLOOD 8.0 mg/dL (7-18)
[2025-08-25] MEDS: THIAMINE HCL 100 MG TABLET PO SCH (07:55)
--- NOTE | 2025-08-25 13:53 | PN ---
[facility] PROGRESS NOTE Date of Service: Aug 25, 2025 Time of Service: 13:47 HISTORY OF PRESENT ILLNESS: This is a 39-year-old male with past medical history of anxiety disorder and hypertension who presents to the ED for complaints of right upper quadrant pain associated with nausea vomiting does last Saturday.Patient states pain is on and off and he has been taking Naproxen and Ibuprofen but pain got worsened today.Patient reports abdominal pain came back after eating 2 pizza bites.Patient reported having 3 episodes of nonbloody vomiting and patient also reports having fever yesterday at home with a temperature of 1:00 pm.patient reports he has similar episodes in the past last 03/21/2025. Seen and examined patient in the ER awake,alert and coherent,appears uncomfortable,7/10 pain level.Patient denies chest pain,palpitation ,shortness of breath,and diarrhea. Latest vital signs temperature 98.2, heart rate 86, blood pressure 140/91 saturation 98% on room air. Abdominal ultrasound result revealed mildly hydropic gallbladder. No gallstone is evident at this time pericholecystic fluid is evident. No definite acute cholecystitis is evident at this time commit HIDA scan for further evaluation. Hepatomegaly and hepatic steatosis. Labs: Hemoglobin 11, hematocrit 35, platelet count 113. Sodium 134, chloride 100, total calcium 7.8, total bilirubin 2.0, direct bilirubin 1.2, AST 138, alkaline phosphatase 297, albumin three pace 72. While in the ER patient received morphine 4 mg IV, Zofran 4 mg IV admit patient for further medical management. SUBJECTIVE: 08/24/25: Patient was seen and evaluated in ED 50. Patient was in alert, awake and oriented. Patient appeared to be in distress due to pain in right upper quadrant of abdomen and epigastrium. Patient reports the pain increases with eating food. Patient reports having chills but denies pain. Patient reports nausea associated with pain. Patient reports he had diarrhea today in the morning but no prior episode of change in bowel movement. Patient denies any burning micturition, change in urinary frequency or dysphagia. Pertinent labs- T. bilirubin 2.0, D. bilirubin- 1.2, AST-138, ALT-64, ALP-297, Lipase -72. 08/25/25: Patient was seen and evaluated in 316. Patient reports the pain has gotten better compared to prior day. Patient reports having lower abdominal discomfort around the bladder during the night, but doesn't have it anymore when he woke up. Patient denies any fever, chills, nausea, vomiting and burning sensation. Patient denies any diarrhea or constipation. Pertinent labs- T. bilirubin 4.7, AST-152, ALT-64, ALP-294. REVIEW OF SYSTEMS CONSTITUTIONAL: Denies fevers, chills, or night sweats. No unintentional weight loss reported. NEUROLOGICAL: Denies headache, amaurosis fugax, motor weakness, sensory deficit, vertigo/spinning sensation, gait abnormalities, or tremors. ENT: No hearing loss, otalgia, otorrhea, rhinitis, rhinorrhea, hoarseness, or sore throat. CARDIOVASCULAR: Denies any exertional angina, dyspnea on exertion, orthopnea, paroxysmal nocturnal dyspnea, palpitations, life-threatening arrhythmias, claudication. PULMONARY: Denies any shortness of breath, cough, phlegm/sputum, hemoptysis, pleuritic chest pain. SLEEP: Denies morning headaches, daytime somnolence or napping. Denies difficulty falling asleep, staying asleep, waking from sleep. Denies knowledge of snoring. GASTROINTESTINAL: Complained of right upper quadrant abdominal pain nausea and vomiting Denies any type of dysphagia to either liquids or solids. Deniespyrosis, early satiety, diarrhea, constipation, or changes in stool consistency or caliber. Denies coffee-ground emesis, hematemesis, hematochezia, or melanotic stools. GENITOURINARY: Denies frequency, urgency, nocturia, hematuria or incontinence (Storage/Irritative symptoms.) Low urinary stream, straining to void, urinary intermittency or hesitancy, splitting of the voiding stream, terminal dribbling. ENDOCRINOLOGIC: Denies polyuria, polydipsia, polyphagia or heat/cold intolerances. HEMATOLOGIC: Denies thrombophilia/previous clots, or coagulopathy/bleeding disorders. ONCOLOGIC: Denies personal history of malignancy. DERMATOLOGIC: Denies rashes or pruritus. PSYCHIATRIC: Denies any suicidal or homicidal ideation. Denies hallucinations. PHYSICAL EXAM GENERAL APPEARANCE: The patient is awake, alert, and oriented, in no acute cardiopulmonary distress. NEUROLOGICAL: Cranial nerves II-XII grossly intact. Motor is 5/5 in bilateral upper and lower extremities proximal to distal. No sensory deficits. HEENT: Face is symmetric. Pupils are equal and reactive. Extraocular movements are intact. NECK: Supple. No JVD. No thyromegaly. No submental, submandibular, pre- /postauricular, occipital or supraclavicular lymphadenopathy. CHEST: Normal chest expansion. No Telemetry. LUNGS: Absence of any rales, rhonchi or any wheezing. CARDIOVASCULAR: Regular. S1 and S2 normal. No appreciable rubs, murmurs or gallops. ABDOMEN: Tenderness around right upper quadrant palpation and epigastrium. Rigidity was present on the Right upper quadrant and epigastrium. There is no voluntary guarding or rebound tenderness. : Deferred. No [place]. EXTREMITIES: Non-edematous and not cyanotic. No clubbing. Good capillary refill. SKIN: No skin breakdown. Vital Signs (last 8hr) Date Time Temp Pulse Resp B/P (MAP) Pulse Ox O2 Delivery O2 Flow Rate FiO2 08/25/25 11:59 98.2 76 18 150/102 95 Room Air 08/25/25 07:36 97.9 92 18 143/96 97 Room Air LABS: Laboratory: Test 08/25/25 05:09 08/24/25 05:32 08/24/25 02:03 Range/Units White Blood Count 7.3 4.8-10.8 K/uL Red Blood Count 4.11 L 4.50-6.20 MIL/uL Hemoglobin 11.9 L 14.0-18.0 g/dL Hematocrit 36.5 L 42-54 % Mean Corpuscular Volume 88.8 79-99 fL Mean Corpuscular Hemoglobin 29.0 27.0-33.0 pg Mean Corpuscular Hemoglobin Concent 32.6 32.0-36.0 g/dL Red Cell Distribution Width 17.3 H 11.0-15.5 % Platelet Count 120 L 130-400 K/uL Mean Platelet Volume 10.0 7.5-10.5 fL Immature Granulocyte % (Auto) 0.4 0-1 % Neutrophils (%) (Auto) 71.8 40.0-77.0 % Lymphocytes (%) (Auto) 14.5 L 21.0-51.0 % Monocytes (%) (Auto) 9.4 3.0-13.0 % Eosinophils (%) (Auto) 3.2 0.0-8.0 % Basophils (%) (Auto) 0.7 0.0-5.0 % Neutrophils # (Auto) 5.2 1.8-7.7 K/uL Lymphocytes # (Auto) 1.1 1.0-4.8 K/uL Monocytes # (Auto) 0.7 0.1-1.0 K/uL Eosinophils # (Auto) 0.23 0.00-0.70 K/uL Basophils # (Auto) 0.05 0.00-0.20 K/uL Absolute Immature Granulocyte (auto 0.03 0-1 K/uL Nucleated Red Blood Cells 0.0 0.0-0.19 % Sodium Level 129 L 136-145 mmol/L Potassium Level 3.7 3.5-5.1 mmol/L Chloride Level 97 L 101-111 mmol/L Carbon Dioxide Level 24 21-32 mmol/L Blood Urea Nitrogen 8 7-18 mg/dL Creatinine 0.7 0.5-1.3 mg/dL Glomerular Filtration Rate Calc 119 >90 mL/min Random Glucose 91 70-105 mg/dL Total Calcium 8.0 L 8.5-10.1 mg/dL Magnesium Level 2.10 1.80-2.40 mg/dL Total Bilirubin 4.7 H 0.2-1.0 mg/dL Aspartate Amino Transf (AST/SGOT) 152 H 10-37 U/L Alanine Aminotransferase (ALT/SGPT) 64 12-78 U/L Alkaline Phosphatase 294 H 50-136 U/L Total Protein 8.1 6.0-8.3 g/dL Albumin 2.9 L 3.5-5.0 g/dL Urine Color YELLOW YELLOW Urine Appearance CLEAR CLEAR Urine pH 8.5 H 5.0-8.0 Urine Specific Mitchell 1.020 1.001-1.031 Urine Protein 10 H NEGATIVE mg/dL Urine Glucose (UA) NEGATIVE NEGATIVE mg/dL Urine Ketones NEGATIVE NEGATIVE mg/dL Urine Occult Blood NEGATIVE NEGATIVE Urine Nitrate NEGATIVE NEGATIVE Urine Bilirubin NEGATIVE NEGATIVE mg/dL Urine Urobilinogen 0.2 0.2-1.0 mg/dL Urine Leukocyte Esterase NEGATIVE NEGATIVE [place]/uL Urine RBC 0-1 0-1 /HPF Urine WBC 0-1 0-1 /HPF Urine Bacteria None None Seen /HPF Urine Opiates Screen POSITIVE H NEGATIVE Urine Barbiturates Screen NEGATIVE NEGATIVE Urine Phencyclidine Screen NEGATIVE NEGATIVE Urine Amphetamines Screen NEGATIVE NEGATIVE Urine Benzodiazepines Screen NEGATIVE NEGATIVE Urine Cocaine Screen NEGATIVE NEGATIVE Urine Marijuana (THC) Screen NEGATIVE NEGATIVE Hemoglobin A1c 5.4 4.0-6.0 % Estimated Average Glucose (eAG) 108 70-126 mg/dL Direct Bilirubin 1.2 H 0.0-0.3 mg/dL Lipase 72 16-77 U/L Thyroid Stimulating Hormone (TSH) 3.05 0.36-3.74 uIU/mL Hepatitis A IgM Antibody Non-Reactive Nonreactive Hepatitis B Surface Antigen. Non-Reactive Nonreactive Hepatitis B Core IgM Antibody Non-Reactive Negative Hepatitis C Antibody Non-Reactive Nonreactive Current Medications Medications (Trade) Dose Ordered Sig/Jarad Route PRN Reason Start Time Stop Time Status Last Admin Dose Admin Ceftriaxone Sodium (ROCEphine 1G INJ) 1 gm Q24H IV 08/24/25 05:00 08/24/25 20:18 DC 08/24/25 05:35 1 GM Famotidine (Pepcid 20mg Vial) 20 mg DAILY IV 08/24/25 09:00 09/23/25 08:59 08/25/25 07:57 20 MG Hydroxyzine HCl (ATArax 25MG TAB) 25 mg TID PRN PO ANXIETY 08/24/25 14:30 09/23/25 14:29 08/24/25 23:39 25 MG Ketorolac Tromethamine (toRADol) 15 mg Q6H PRN IV MODERATE PAIN (4-6) 08/24/25 06:30 08/29/25 06:29 Metronidazole/ Sodium Chloride 100 ml @ 100 mls/hr Q8H IV 08/24/25 05:00 08/24/25 20:18 DC 08/24/25 14:03 100 MLS/HR Morphine Sulfate (morPHINE 2MG SYG) 2 mg Q4H PRN IV SEVERE PAIN (7-10) 08/24/25 05:00 08/31/25 04:59 08/24/25 17:55 2 MG Ondansetron HCl (zoFRAN 4MG INJ) 4 mg Q6H PRN IV NAUSEA/VOMITING 08/24/25 05:00 09/23/25 04:59 Pharmacy Profile Note (Pharmacy Communication) 1 each PROTOCOL PRN MISC ETOH Withdrawal Score changes 08/24/25 13:00 08/24/25 20:51 DC Piperacillin Sod/ Tazobactam Sod (Zosyn 3.375gm+NS 50ml) 3.375 gm Q8H IVPB 08/24/25 20:30 09/03/25 20:29 08/25/25 12:31 3.375 GM Sodium Chloride 1,000 ml @ 100 mls/hr Q10H IV 08/24/25 05:00 09/23/25 04:59 08/25/25 00:14 100 MLS/HR Thiamine HCl (Vitamin B-1) 100 mg DAILY PO 08/25/25 09:00 09/24/25 08:59 DIAGNOSTICS / RADIOLOGY: [place] [id number] IMAGING REPORT Signed PATIENT: DAX EDMOND MR#: [id number] : 1985 SEX: M AGE: 39 LOCATION: [facility] ORDER [id number] STATUS: ADM IN REPORT#: [id number] SERVICE [id number] REASON: suspected acute cholecystiits ORDERING PHYSICIAN: CARLY MANRIQUE SKID ADZER PROCEDURE: HIDA EF - NM HIDA WITH EF/CCK Exam: Hepatobiliary scan. Comparison: None. History: Suspected acute cholecystitis. Findings: After administration of 7.0 mCi of technetium 99 Mebrofenin IV, images were obtained over the next 60 min at 5-minute intervals. This demonstrates visualization of activity in the liver, which proceeds into the biliary tree, gallbladder, and proximal small bowel. Following the administration of 2.5 mcg Sincalide IV over 30 min, additional images at 120 sec increments were performed for 30 min. The gallbladder ejection fraction is 29% (abnormal < 38%). Symptoms of administration: None. IMPRESSION: Scan findings are suggestive of gall bladder dyskinesia with an ejection fraction of 29%. /Secretary DICTATED BY: SEVERO DIAS Jr., MD DATE: 08/24/252210 ELECTRONICALLY SIGNED BY: SEVERO DIAS Jr., MD DATE: 11/11/25 2211 ASSESSMENT: Suspected acute cholecystitis versus choledocholithiasis POA Gall bladder dyskinesia with EF of 29% Hypertension POA Anxiety disorder POA Obesity POA Acute normocytic normochromic anemia POA Acute thrombocytopenia POA Alcoholism POA PLAN: Suspected acute cholecystitis versus choledocholithiasis POA: * On presentation labs show T. bilirubin 2.0, D. bilirubin- 1.2, AST-138, ALT- 64, ALP-297, Lipase -72. Vitals temperature 98.2, heart rate 86, blood pressure 140/91 saturation 98% on room air. * Abdominal US was ordered, results show mildly hydropic gallbladder with no gallstone was evident. No pericholecystic fluid was evident. No definite acute cholecystitis was evident. * HIDA scan was ordered, results show gall bladder dyskinesia with EF of 29%. * MRCP was ordered, pending results. * General surgery was consulted, will follow their recommendations. * Patient was started on broad spectrum antibiotics Ceftriaxone 1gm IV, Metronidazole was discontinued and he was started on Zosyn from 08/24/25. * Patient was started on IV fluids with Sodium Chloride. * Patient is NPO * Patient started on Morphine 2mg PRN, Ketorolac 15mg PRN for analgesia. * Patient started on Ondansetron 4mg for nausea and vomiting. Alcoholism POA Initiated [employer] protocol Will Monitor for signs of alcohol withdrawal Supportive measures: We will replace electrolytes as needed per protocol. Started on famotidine 20 mg IV daily for GI prophylaxis. DVT prophylaxis with SCD's ATTESTATION BY PHYSICIAN I have seen and examined the patient. I reviewed the documentation, medical decision making, and treatment plan as noted by the resident physician above. I agree with the findings and plan of care. CAMILLA GALVEZ MD, SHAJI MD Aug 25, 2025 13:53
--- NOTE | 2025-08-25 19:07 | PN ---
GENERAL SURGERY PROGRESS NOTE DATE OF SERVICE: Aug 25, 2025 TIME OF SERVICE: 19:07 PROBLEM LISTS: [ ] Biliary dyskinesia INTERVAL HISTORY: [ ] Persistent pain biliary dyskinesia PHYSICAL EXAMINATION: GENERAL: [Patient is lying comfortably in bed, not in any obvious distress.] HEAD: [Normal with no signs of head trauma.] EYES: [Not pale not jaundiced afebrile to touch.] ENT: [ Normal.] NECK: [Supple,no tenderness,no lymphadenopathy,no masses,no thyromegaly ,no bruits, no JVD.] LUNGS: [Clear breath sounds bilaterally. No wheezes, rales, or rhonchi.] HEART: [Regular rate and rhythm. Normal S1 and S2, without murmurs, rub or gallop.] VASC: [No edema. Peripheral pulses normal and equal in all extremities.] ABD: [Bowel sounds present,soft, RUQ tender, no masses, no organomegaly.] : [Normal, no suprapubic tenderness.] LYMPH: [No lymphadenopathy noted.] EXT: [ Warm soft, non tender.] SKIN: [ No rashes or lesions.] NEURO: [ Awake Alert and oriented x3.] LABORATORY: [ ] Hematology Labs: Test 08/25/25 05:09 Range/Units White Blood Count 7.3 4.8-10.8 K/uL Red Blood Count 4.11 L 4.50-6.20 MIL/uL Hemoglobin 11.9 L 14.0-18.0 g/dL Hematocrit 36.5 L 42-54 % Mean Corpuscular Volume 88.8 79-99 fL Mean Corpuscular Hemoglobin 29.0 27.0-33.0 pg Mean Corpuscular Hemoglobin Concent 32.6 32.0-36.0 g/dL Red Cell Distribution Width 17.3 H 11.0-15.5 % Platelet Count 120 L 130-400 K/uL Mean Platelet Volume 10.0 7.5-10.5 fL Immature Granulocyte % (Auto) 0.4 0-1 % Neutrophils (%) (Auto) 71.8 40.0-77.0 % Lymphocytes (%) (Auto) 14.5 L 21.0-51.0 % Monocytes (%) (Auto) 9.4 3.0-13.0 % Eosinophils (%) (Auto) 3.2 0.0-8.0 % Basophils (%) (Auto) 0.7 0.0-5.0 % Neutrophils # (Auto) 5.2 1.8-7.7 K/uL Lymphocytes # (Auto) 1.1 1.0-4.8 K/uL Monocytes # (Auto) 0.7 0.1-1.0 K/uL Eosinophils # (Auto) 0.23 0.00-0.70 K/uL Basophils # (Auto) 0.05 0.00-0.20 K/uL Absolute Immature Granulocyte (auto 0.03 0-1 K/uL Nucleated Red Blood Cells 0.0 0.0-0.19 % Chemistry Labs: Test 08/25/25 05:09 08/24/25 02:03 Range/Units Sodium Level 129 L 136-145 mmol/L Potassium Level 3.7 3.5-5.1 mmol/L Chloride Level 97 L 101-111 mmol/L Carbon Dioxide Level 24 21-32 mmol/L Blood Urea Nitrogen 8 7-18 mg/dL Creatinine 0.7 0.5-1.3 mg/dL Glomerular Filtration Rate Calc 119 >90 mL/min Random Glucose 91 70-105 mg/dL Total Calcium 8.0 L 8.5-10.1 mg/dL Magnesium Level 2.10 1.80-2.40 mg/dL Total Bilirubin 4.7 H 0.2-1.0 mg/dL Aspartate Amino Transf (AST/SGOT) 152 H 10-37 U/L Alanine Aminotransferase (ALT/SGPT) 64 12-78 U/L Alkaline Phosphatase 294 H 50-136 U/L Total Protein 8.1 6.0-8.3 g/dL Albumin 2.9 L 3.5-5.0 g/dL Hemoglobin A1c 5.4 4.0-6.0 % Estimated Average Glucose (eAG) 108 70-126 mg/dL Direct Bilirubin 1.2 H 0.0-0.3 mg/dL Lipase 72 16-77 U/L Thyroid Stimulating Hormone (TSH) 3.05 0.36-3.74 uIU/mL DIAGNOSTICS / RADIOLOGY: [Copy/Paste Echos/Imaging Report here] ASSESSMENT: [] Biliary dyskinesia Rule out acute cholecystitis PLAN: Awaiting MRCP full liquid diet CAMDEN ORELLANA MD Aug 25, 2025 19:07
[2025-08-26] VITALS (7 sets, daily range): BP systolic 130–149; BP diastolic 87–91; PULSE 81–95; RESP 16–18; TEMP 97.8–98.5; O2SAT 96–98
[2025-08-26 05:17] LABS: IMMATURE GRANULOCYTE ABSOLUTE 0.03 K/uL (0-1); NUCLEATED RED BLOOD CELLS 0.0 % (0.0-0.19); PLATELET COUNT (AUTO) 136 K/uL (130-400); RED BLOOD CELL COUNT(AUTO) 4.23 MIL/uL (4.50-6.20); RED CELL DISTRIBUTION WIDTH 17.2 % (11.0-15.5); WHITE BLOOD COUNT (AUTO) 6.7 K/uL (4.8-10.8)
[2025-08-26 05:37] LABS: ASPARTATE AMINOTRANSFERASE 167.0 U/L (10-37); CREATININE 0.8 mg/dL (0.5-1.3); GLOMERULAR FILTR. RATE CALC 115.0 mL/min (>90); GLUCOSE,RANDOM 80.0 mg/dL (70-105); SODIUM SERUM 132.0 mmol/L (136-145); TOTAL PROTEIN, SERUM 8.2 g/dL (6.0-8.3); UREA NITROGEN, BLOOD 11.0 mg/dL (7-18)
[2025-08-26] MEDS ORDERED: PoTASSium chl 10% ELIXIR 20MEQ 20 MEQ/15 ML UDCUP PO PRN (08:30)
--- NOTE | 2025-08-26 14:47 | CONS ---
GASTROENTEROLOGY CONSULTATION NOTE Date of Consultation: Aug 26, 2025 Time of Consultation: 14:46 History of Present Illness: This is a 39-year-old male with past medical history of anxiety, hypertension and alcohol use who presented due to right upper quadrant pain, nausea and vomiting. Patient reported to be taking NSAID however pain worsened. He reported nausea and vomiting. Upon further evaluation he had an abdominal ultrasound which revealed mild hydropic gallbladder. HIDA scan was done which revealed biliary dyskinesia. Bilirubin elevated so MRCP ordered. Bilirubin 5.3, AST 167, ALT 70 and alkaline phos of 285. Lipase of 72. Review of Systems: CONSTITUTIONAL: No malaise or change in sensation of wellbeing. ENMT: No rhinorrhea, otorrhea, sinus pain, ear ache. CARDIOVASCULAR: No angina, palpitations, orthopnea or paroxysmal dyspnea. RESPIRATORY: No SOB. GASTROINTESTINAL: No abdominal pain, nausea, vomiting, diarrhea, hematemesis, melena or change in the patient's habitual bowel movements consistency/number. GENITOURINARY: No dysuria, hematuria or change in bladder continence. MUSCULOSKELETAL: No new muscle pain or decrease in muscular strength. No new joint swelling, redness or tenderness. SKIN: No new rash. Past Medical History: PAST MEDICAL HISTORY: [ Anxiety and hypertension ] PAST SURGICAL HISTORY: [left foot surgery ] PAST SOCIAL HISTORY: [Patient lives with . Patient denies cigarette and recreational drug use . Patient admits to drinking four glass of wine every other day and last consumption was yesterday. ] FAMILY HISTORY: [ Noncontributory ] Coded Allergies: No Known Drug Allergies (Unverified Allergy, Unknown, 03/04/19) Coded Allergies: No Known Drug Allergies (Unverified Allergy, Unknown, 03/04/19) Physical Exam: GEN: Awake, alert, oriented in person, time and place, and in no acute distress. HEENT: No sinus tenderness. Tympanic membranes were not examined. No rhinorrhea. Oral pharyngeal mucosa is pink, moist and within normal limits. Neck is supple with no cervical lymphadenopathy, thyromegaly or JVD. CHEST: Inspection, palpation and percussion of the chest were unremarkable. Lung auscultation revealed normal breath sounds bilaterally. CARDIAC: PMI is within normal limits. Heart sounds are regular. Normal S1, S2. No gallop or murmur. ABD: Soft, non-tender and not distended. No peritoneal signs on palpation. No organomegaly. Normal bowel sounds. EXT: No cyanosis or clubbing. No edema. SKIN: Intact. No rashes. JOINTS: No evidence of synovitis or acute arthritis. NEURO: Alert and oriented to name, place and person. Cranial nerve examination is unremarkable. No focal motor deficits. Normal speech. Gait is normal. Strength is normal. Vital Sign (Last 24 Hours) 08/25/25 08/26/25 19:20 13:20 Temp 98.4 Pulse 95 Resp 16 B/P (MAP) 130/91 Pulse Ox 97 O2 Delivery Room Air O2 Flow Rate 0 FiO2 21 Intake & Output (last 24hrs) 08/25/25 08/25/25 08/26/25 15:00 23:00 07:00 Intake Total 170.0 ml 50.0 ml Output Total 900 ml Balance -730.0 ml 50.0 ml Laboratory: [ ] Laboratory: Test 08/26/25 04:51 08/25/25 05:09 Range/Units White Blood Count 6.7 4.8-10.8 K/uL Red Blood Count 4.23 L 4.50-6.20 MIL/uL Hemoglobin 12.1 L 14.0-18.0 g/dL Hematocrit 37.8 L 42-54 % Mean Corpuscular Volume 89.4 79-99 fL Mean Corpuscular Hemoglobin 28.6 27.0-33.0 pg Mean Corpuscular Hemoglobin Concent 32.0 32.0-36.0 g/dL Red Cell Distribution Width 17.2 H 11.0-15.5 % Platelet Count 136 130-400 K/uL Mean Platelet Volume 9.7 7.5-10.5 fL Immature Granulocyte % (Auto) 0.4 0-1 % Neutrophils (%) (Auto) 61.2 40.0-77.0 % Lymphocytes (%) (Auto) 22.2 21.0-51.0 % Monocytes (%) (Auto) 10.0 3.0-13.0 % Eosinophils (%) (Auto) 4.9 0.0-8.0 % Basophils (%) (Auto) 1.3 0.0-5.0 % Neutrophils # (Auto) 4.1 1.8-7.7 K/uL Lymphocytes # (Auto) 1.5 1.0-4.8 K/uL Monocytes # (Auto) 0.7 0.1-1.0 K/uL Eosinophils # (Auto) 0.33 0.00-0.70 K/uL Basophils # (Auto) 0.09 0.00-0.20 K/uL Absolute Immature Granulocyte (auto 0.03 0-1 K/uL Nucleated Red Blood Cells 0.0 0.0-0.19 % Sodium Level 132 L 136-145 mmol/L Potassium Level 3.6 3.5-5.1 mmol/L Chloride Level 99 L 101-111 mmol/L Carbon Dioxide Level 24 21-32 mmol/L Blood Urea Nitrogen 11 7-18 mg/dL Creatinine 0.8 0.5-1.3 mg/dL Glomerular Filtration Rate Calc 115 >90 mL/min Random Glucose 80 70-105 mg/dL Total Calcium 8.3 L 8.5-10.1 mg/dL Total Bilirubin 5.3 H 0.2-1.0 mg/dL Aspartate Amino Transf (AST/SGOT) 167 H 10-37 U/L Alanine Aminotransferase (ALT/SGPT) 70 12-78 U/L Alkaline Phosphatase 285 H 50-136 U/L Total Protein 8.2 6.0-8.3 g/dL Albumin 2.9 L 3.5-5.0 g/dL Magnesium Level 2.10 1.80-2.40 mg/dL Current Medications Medications (Trade) Dose Ordered Sig/Jarad Route PRN Reason Start Time Stop Time Status Last Admin Dose Admin Ceftriaxone Sodium (ROCEphine 1G INJ) 1 gm Q24H IV 08/24/25 05:00 08/24/25 20:18 DC 08/24/25 05:35 1 GM Famotidine (Pepcid 20mg Vial) 20 mg DAILY IV 08/24/25 09:00 09/23/25 08:59 08/26/25 09:39 20 MG Hydroxyzine HCl (ATArax 25MG TAB) 25 mg TID PRN PO ANXIETY 08/24/25 14:30 09/23/25 14:29 08/25/25 22:29 25 MG Ketorolac Tromethamine (toRADol) 15 mg Q6H PRN IV MODERATE PAIN (4-6) 08/24/25 06:30 08/29/25 06:29 08/26/25 09:40 15 MG Losartan Potassium (CozAAR 100MG TAB) 100 mg DAILY PO 08/26/25 09:00 09/25/25 08:59 08/26/25 09:40 100 MG Metronidazole/ Sodium Chloride 100 ml @ 100 mls/hr Q8H IV 08/24/25 05:00 08/24/25 20:18 DC 08/24/25 14:03 100 MLS/HR Morphine Sulfate (morPHINE 2MG SYG) 2 mg Q4H PRN IV SEVERE PAIN (7-10) 08/24/25 05:00 08/31/25 04:59 08/26/25 13:32 2 MG Ondansetron HCl (zoFRAN 4MG INJ) 4 mg Q6H PRN IV NAUSEA/VOMITING 08/24/25 05:00 09/23/25 04:59 Pharmacy Profile Note (Pharmacy Communication) 1 each PROTOCOL PRN MISC ETOH Withdrawal Score changes 08/24/25 13:00 08/24/25 20:51 DC Piperacillin Sod/ Tazobactam Sod (Zosyn 3.375gm+NS 50ml) 3.375 gm Q8H IVPB 08/24/25 20:30 09/03/25 20:29 08/26/25 13:32 3.375 GM Potassium Chloride 100 ml @ 100 mls/hr AD PRN IV POTASSIUM PROTOCOL 08/26/25 08:30 09/25/25 08:29 Potassium Chloride (K-Dur/Klor-Con 20meq) 20 meq AD PRN PO POTASSIUM PROTOCOL 08/26/25 08:30 09/25/25 08:29 Potassium Chloride (KCl 10% Elixir 20meq/15ml) 20 meq AD PRN PO POTASSIUM PROTOCOL 08/26/25 08:30 09/25/25 08:29 Sodium Chloride 1,000 ml @ 100 mls/hr Q10H IV 08/24/25 05:00 09/23/25 04:59 08/26/25 06:05 100 MLS/HR Thiamine HCl (Vitamin B-1) 100 mg DAILY PO 08/25/25 09:00 09/24/25 08:59 08/26/25 09:39 100 MG Diagnostics / Radiology: [COPY/PASTE HERE IF NO REPORTS PLEASE DELETE SECTION] Assessment: Abnormal LFTs Thrombocytopenia, concerning for liver disease Abdominal pain N/V Alcohol use Plan: Await MRCP Trend LFTs Continue GI prophylaxis Avoid NSAIDs Antireflux measures Monitor H&H and transfuse as needed Call with questions, concerns or change in clinical status Patient to follow-up at clinic post discharge 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
--- NOTE | 2025-08-26 15:35 | PN ---
[facility] PROGRESS NOTE Date of Service: Aug 26, 2025 Time of Service: 15:26 HISTORY OF PRESENT ILLNESS: This is a 39-year-old male with past medical history of anxiety disorder and hypertension who presents to the ED for complaints of right upper quadrant pain associated with nausea vomiting does last Saturday.Patient states pain is on and off and he has been taking Naproxen and Ibuprofen but pain got worsened today.Patient reports abdominal pain came back after eating 2 pizza bites.Patient reported having 3 episodes of nonbloody vomiting and patient also reports having fever yesterday at home with a temperature of 1:00 pm.patient reports he has similar episodes in the past last 03/21/2025. Seen and examined patient in the ER awake,alert and coherent,appears uncomfortable,7/10 pain level.Patient denies chest pain,palpitation ,shortness of breath,and diarrhea. Latest vital signs temperature 98.2, heart rate 86, blood pressure 140/91 saturation 98% on room air. Abdominal ultrasound result revealed mildly hydropic gallbladder. No gallstone is evident at this time pericholecystic fluid is evident. No definite acute cholecystitis is evident at this time commit HIDA scan for further evaluation. Hepatomegaly and hepatic steatosis. Labs: Hemoglobin 11, hematocrit 35, platelet count 113. Sodium 134, chloride 100, total calcium 7.8, total bilirubin 2.0, direct bilirubin 1.2, AST 138, alkaline phosphatase 297, albumin three pace 72. While in the ER patient received morphine 4 mg IV, Zofran 4 mg IV admit patient for further medical management. SUBJECTIVE: 08/24/25: Patient was seen and evaluated in ED 50. Patient was in alert, awake and oriented. Patient appeared to be in distress due to pain in right upper quadrant of abdomen and epigastrium. Patient reports the pain increases with eating food. Patient reports having chills but denies pain. Patient reports nausea associated with pain. Patient reports he had diarrhea today in the morning but no prior episode of change in bowel movement. Patient denies any burning micturition, change in urinary frequency or dysphagia. Pertinent labs- T. bilirubin 2.0, D. bilirubin- 1.2, AST-138, ALT-64, ALP-297, Lipase -72. 08/25/25: Patient was seen and evaluated in 316. Patient reports the pain has gotten better compared to prior day. Patient reports having lower abdominal discomfort around the bladder during the night, but doesn't have it anymore when he woke up. Patient denies any fever, chills, nausea, vomiting and burning sensation. Patient denies any diarrhea or constipation. Pertinent labs- T. bilirubin 4.7, AST-152, ALT-64, ALP-294. 08/26/25: Patient was seen and evaluated in 316. Patient reports the pain has gotten better than previous two days. Patient denies any lower abdominal discomfort today. patient reports that he passed semi solid stool once today but reports it is hasnt happened again. Patient denies any fever, chills, nausea, vomiting and burning sensation. Pertinent labs- T. bilirubin 5.3, AST-167, ALT- 70, ALP-285. REVIEW OF SYSTEMS CONSTITUTIONAL: Denies fevers, chills, or night sweats. No unintentional weight loss reported. NEUROLOGICAL: Denies headache, amaurosis fugax, motor weakness, sensory deficit, vertigo/spinning sensation, gait abnormalities, or tremors. ENT: No hearing loss, otalgia, otorrhea, rhinitis, rhinorrhea, hoarseness, or sore throat. CARDIOVASCULAR: Denies any exertional angina, dyspnea on exertion, orthopnea, paroxysmal nocturnal dyspnea, palpitations, life-threatening arrhythmias, trini dication. PULMONARY: Denies any shortness of breath, cough, phlegm/sputum, hemoptysis, pleuritic chest pain. SLEEP: Denies morning headaches, daytime somnolence or napping. Denies difficulty falling asleep, staying asleep, waking from sleep. Denies knowledge of snoring. GASTROINTESTINAL: Complained of right upper quadrant abdominal pain nausea and vomiting Denies any type of dysphagia to either liquids or solids. Deniespyrosi s, early satiety, diarrhea, constipation, or changes in stool consistency or caliber. Denies coffee-ground emesis, hematemesis, hematochezia, or melanotic stools. GENITOURINARY: Denies frequency, urgency, nocturia, hematuria or incontinence (Storage/Irritative symptoms.) Low urinary stream, straining to void, urinary intermittency or hesitancy, splitting of the voiding stream, terminal dribbling. ENDOCRINOLOGIC: Denies polyuria, polydipsia, polyphagia or heat/cold intolerances. HEMATOLOGIC: Denies thrombophilia/previous clots, or coagulopathy/bleeding disorders. ONCOLOGIC: Denies personal history of malignancy. DERMATOLOGIC: Denies rashes or pruritus. PSYCHIATRIC: Denies any suicidal or homicidal ideation. Denies hallucinations. PHYSICAL EXAM GENERAL APPEARANCE: The patient is awake, alert, and oriented, in no acute cardiopulmonary distress. NEUROLOGICAL: Cranial nerves II-XII grossly intact. Motor is 5/5 in bilateral upper and lower extremities proximal to distal. No sensory deficits. HEENT: Face is symmetric. Pupils are equal and reactive. Extraocular movements are intact. NECK: Supple. No JVD. No thyromegaly. No submental, submandibular, pre- /postauricular, occipital or supraclavicular lymphadenopathy. CHEST: Normal chest expansion. No Telemetry. LUNGS: Absence of any rales, rhonchi or any wheezing. CARDIOVASCULAR: Regular. S1 and S2 normal. No appreciable rubs, murmurs or gallops. ABDOMEN: Tenderness around right upper quadrant palpation and epigastrium. Rigidity was present on the Right upper quadrant and epigastrium. There is no voluntary guarding or rebound tenderness. : Deferred. No [place]. EXTREMITIES: Non-edematous and not cyanotic. No clubbing. Good capillary refill. SKIN: No skin breakdown. Vital Signs (last 8hr) Date Time Temp Pulse Resp B/P (MAP) Pulse Ox O2 Delivery O2 Flow Rate FiO2 08/26/25 13:20 98.4 95 16 130/91 97 Room Air 08/26/25 09:39 98.1 91 18 138/88 98 Room Air LABS: Laboratory: Test 08/26/25 04:51 08/25/25 05:09 Range/Units White Blood Count 6.7 4.8-10.8 K/uL Red Blood Count 4.23 L 4.50-6.20 MIL/uL Hemoglobin 12.1 L 14.0-18.0 g/dL Hematocrit 37.8 L 42-54 % Mean Corpuscular Volume 89.4 79-99 fL Mean Corpuscular Hemoglobin 28.6 27.0-33.0 pg Mean Corpuscular Hemoglobin Concent 32.0 32.0-36.0 g/dL Red Cell Distribution Width 17.2 H 11.0-15.5 % Platelet Count 136 130-400 K/uL Mean Platelet Volume 9.7 7.5-10.5 fL Immature Granulocyte % (Auto) 0.4 0-1 % Neutrophils (%) (Auto) 61.2 40.0-77.0 % Lymphocytes (%) (Auto) 22.2 21.0-51.0 % Monocytes (%) (Auto) 10.0 3.0-13.0 % Eosinophils (%) (Auto) 4.9 0.0-8.0 % Basophils (%) (Auto) 1.3 0.0-5.0 % Neutrophils # (Auto) 4.1 1.8-7.7 K/uL Lymphocytes # (Auto) 1.5 1.0-4.8 K/uL Monocytes # (Auto) 0.7 0.1-1.0 K/uL Eosinophils # (Auto) 0.33 0.00-0.70 K/uL Basophils # (Auto) 0.09 0.00-0.20 K/uL Absolute Immature Granulocyte (auto 0.03 0-1 K/uL Nucleated Red Blood Cells 0.0 0.0-0.19 % Sodium Level 132 L 136-145 mmol/L Potassium Level 3.6 3.5-5.1 mmol/L Chloride Level 99 L 101-111 mmol/L Carbon Dioxide Level 24 21-32 mmol/L Blood Urea Nitrogen 11 7-18 mg/dL Creatinine 0.8 0.5-1.3 mg/dL Glomerular Filtration Rate Calc 115 >90 mL/min Random Glucose 80 70-105 mg/dL Total Calcium 8.3 L 8.5-10.1 mg/dL Total Bilirubin 5.3 H 0.2-1.0 mg/dL Aspartate Amino Transf (AST/SGOT) 167 H 10-37 U/L Alanine Aminotransferase (ALT/SGPT) 70 12-78 U/L Alkaline Phosphatase 285 H 50-136 U/L Total Protein 8.2 6.0-8.3 g/dL Albumin 2.9 L 3.5-5.0 g/dL Magnesium Level 2.10 1.80-2.40 mg/dL Current Medications Medications (Trade) Dose Ordered Sig/Jarad Route PRN Reason Start Time Stop Time Status Last Admin Dose Admin Ceftriaxone Sodium (ROCEphine 1G INJ) 1 gm Q24H IV 08/24/25 05:00 08/24/25 20:18 DC 08/24/25 05:35 1 GM Famotidine (Pepcid 20mg Vial) 20 mg DAILY IV 08/24/25 09:00 09/23/25 08:59 08/26/25 09:39 20 MG Hydroxyzine HCl (ATArax 25MG TAB) 25 mg TID PRN PO ANXIETY 08/24/25 14:30 09/23/25 14:29 08/25/25 22:29 25 MG Ketorolac Tromethamine (toRADol) 15 mg Q6H PRN IV MODERATE PAIN (4-6) 08/24/25 06:30 08/29/25 06:29 08/26/25 09:40 15 MG Losartan Potassium (CozAAR 100MG TAB) 100 mg DAILY PO 08/26/25 09:00 09/25/25 08:59 08/26/25 09:40 100 MG Metronidazole/ Sodium Chloride 100 ml @ 100 mls/hr Q8H IV 08/24/25 05:00 08/24/25 20:18 DC 08/24/25 14:03 100 MLS/HR Morphine Sulfate (morPHINE 2MG SYG) 2 mg Q4H PRN IV SEVERE PAIN (7-10) 08/24/25 05:00 08/31/25 04:59 08/26/25 13:32 2 MG Ondansetron HCl (zoFRAN 4MG INJ) 4 mg Q6H PRN IV NAUSEA/VOMITING 08/24/25 05:00 09/23/25 04:59 Pharmacy Profile Note (Pharmacy Communication) 1 each PROTOCOL PRN MISC ETOH Withdrawal Score changes 08/24/25 13:00 08/24/25 20:51 DC Piperacillin Sod/ Tazobactam Sod (Zosyn 3.375gm+NS 50ml) 3.375 gm Q8H IVPB 08/24/25 20:30 09/03/25 20:29 08/26/25 13:32 3.375 GM Potassium Chloride 100 ml @ 100 mls/hr AD PRN IV POTASSIUM PROTOCOL 08/26/25 08:30 09/25/25 08:29 Potassium Chloride (K-Dur/Klor-Con 20meq) 20 meq AD PRN PO POTASSIUM PROTOCOL 08/26/25 08:30 09/25/25 08:29 Potassium Chloride (KCl 10% Elixir 20meq/15ml) 20 meq AD PRN PO POTASSIUM PROTOCOL 08/26/25 08:30 09/25/25 08:29 Sodium Chloride 1,000 ml @ 100 mls/hr Q10H IV 08/24/25 05:00 09/23/25 04:59 08/26/25 06:05 100 MLS/HR Thiamine HCl (Vitamin B-1) 100 mg DAILY PO 08/25/25 09:00 09/24/25 08:59 08/26/25 09:39 100 MG DIAGNOSTICS / RADIOLOGY: [ ] ASSESSMENT: Suspected acute cholecystitis versus choledocholithiasis POA Gall bladder dyskinesia with EF of 29% Hypertension POA Anxiety disorder POA Obesity POA Acute normocytic normochromic anemia POA Acute thrombocytopenia POA Alcoholism POA PLAN: Suspected acute cholecystitis versus choledocholithiasis POA: * On presentation labs show T. bilirubin 2.0, D. bilirubin- 1.2, AST-138, ALT- 64, ALP-297, Lipase -72. Vitals temperature 98.2, heart rate 86, blood pressure 140/91 saturation 98% on room air. * Abdominal US was ordered, results show mildly hydropic gallbladder with no gallstone was evident. No pericholecystic fluid was evident. No definite acute cholecystitis was evident. * HIDA scan was ordered, results show gall bladder dyskinesia with EF of 29%. * MRCP was ordered, pending results. * General surgery was consulted, will follow their recommendations. * Gastroenterology was consulted, will follow their recommendations. * Patient was started on broad spectrum antibiotics Ceftriaxone 1gm IV, Metronidazole was discontinued and he was started on Zosyn from 08/24/25. * Patient was started on IV fluids with Sodium Chloride. * Patient is NPO * Patient started on Morphine 2mg PRN, Ketorolac 15mg PRN for analgesia. * Patient started on Ondansetron 4mg for nausea and vomiting. Alcoholism POA Initiated CIWA protocol Will Monitor for signs of alcohol withdrawal Supportive measures: We will replace electrolytes as needed per protocol. Started on famotidine 20 mg IV daily for GI prophylaxis. DVT prophylaxis with SCD's ATTESTATION BY PHYSICIAN I have seen and examined the patient. I reviewed the documentation, medical decision making, and treatment plan as noted by the resident physician above. I agree with the findings and plan of care. CAMILLA GALVEZ MD, SHAJI MD Aug 26, 2025 15:35
--- NOTE | 2025-08-26 15:57 | HMCIMG ---
EXAM: MR Cholangiopancreatography CLINICAL HISTORY: Follow-up abdominal symptoms. TECHNIQUE: Multiplanar images were obtained without intravenous contrast, utilizing a series of customized pulse sequences. COMPARISON: US 08/24/2025 FINDINGS: Study limited by patient motion. LIVER: The liver is enlarged, measuring 22.5 cm in craniocaudal span, with diffuse hepatic steatosis. Minimal perihepatic fluid. GALLBLADDER AND BILIARY SYSTEM: Mild diffuse gallbladder wall thickening measuring up to 0.4 cm with minimal pericholecystic fat stranding. Layering bile and sludge in the gallbladder lumen. No gallbladder calculus. No biliary duct dilatation. No ductal stones. PANCREAS: Peripancreatic fluid and fat stranding along the pancreatic head and uncinate process. Minimal fluid and fat stranding along the retroperitoneal planes in the preaortic region, bilateral anterior pararenal fascia, and retroperitoneal segments of the duodenum. No pancreatic mass. SPLEEN: The spleen is enlarged, measuring 13.1 cm, with minimal perisplenic fluid. ADRENALS: Normal bilaterally. No masses. KIDNEYS: Normal in size and configuration. No stone, hydronephrosis, mass, or significant cyst. RETROPERITONEUM: Minimal retroperitoneal fluid and fat stranding as above. No lymphadenopathy. AORTA: The visualized abdominal aorta is normal in size and configuration. No stenosis or aneurysm. BOWEL/MESENTERY: No bowel dilatation or wall thickening. No free or loculated fluid apart from minimal inflammatory fluid as described. No mesenteric stranding or lymphadenopathy beyond the findings above. ABDOMINAL WALL: Normal. BONES: Normal. IMPRESSION: Study limited by patient motion. Hepatomegaly with diffuse hepatic steatosis and minimal perihepatic fluid. Peripancreatic and retroperitoneal inflammatory fluid and fat stranding adjacent to the pancreatic head and uncinate process, suspicious for acute pancreatitis; recommend correlation with serum amylase and lipase. Mild gallbladder wall thickening with minimal pericholecystic inflammatory change and layering sludge without gallstone. Splenomegaly with minimal perisplenic fluid. /[place]
[2025-08-27] VITALS (8 sets, daily range): BP systolic 128–150; BP diastolic 76–92; PULSE 69–81; RESP 16–18; TEMP 96.8–98.8; O2SAT 96–98
[2025-08-27 07:14] LABS: IMMATURE GRANULOCYTE ABSOLUTE 0.02 K/uL (0-1); NUCLEATED RED BLOOD CELLS 0.0 % (0.0-0.19); PLATELET COUNT (AUTO) 146 K/uL (130-400); RED BLOOD CELL COUNT(AUTO) 4.17 MIL/uL (4.50-6.20); RED CELL DISTRIBUTION WIDTH 17.2 % (11.0-15.5); WHITE BLOOD COUNT (AUTO) 5.8 K/uL (4.8-10.8)
[2025-08-27 07:56] LABS: ASPARTATE AMINOTRANSFERASE 196.0 U/L (10-37); CREATININE 0.8 mg/dL (0.5-1.3); GLOMERULAR FILTR. RATE CALC 115.0 mL/min (>90); GLUCOSE,RANDOM 81.0 mg/dL (70-105); SODIUM SERUM 136.0 mmol/L (136-145); TOTAL PROTEIN, SERUM 8.0 g/dL (6.0-8.3); UREA NITROGEN, BLOOD 10.0 mg/dL (7-18)
[2025-08-27 08:46] LABS: LDL DIRECT 142 mg/dL (0-99)
--- NOTE | 2025-08-27 09:40 | PN ---
[facility] PROGRESS NOTE Date of Service: Aug 27, 2025 Time of Service: 09:26 HISTORY OF PRESENT ILLNESS: This is a 39-year-old male with past medical history of anxiety disorder and hypertension who presents to the ED for complaints of right upper quadrant pain associated with nausea vomiting does last Saturday.Patient states pain is on and off and he has been taking Naproxen and Ibuprofen but pain got worsened today.Patient reports abdominal pain came back after eating 2 pizza bites.Patient reported having 3 episodes of nonbloody vomiting and patient also reports having fever yesterday at home with a temperature of 1:00 pm.patient reports he has similar episodes in the past last 03/21/2025. Seen and examined patient in the ER awake,alert and coherent,appears uncomfortable,7/10 pain level.Patient denies chest pain,palpitation ,shortness of breath,and diarrhea. Latest vital signs temperature 98.2, heart rate 86, blood pressure 140/91 saturation 98% on room air. Abdominal ultrasound result revealed mildly hydropic gallbladder. No gallstone is evident at this time pericholecystic fluid is evident. No definite acute cholecystitis is evident at this time commit HIDA scan for further evaluation. Hepatomegaly and hepatic steatosis. Labs: Hemoglobin 11, hematocrit 35, platelet count 113. Sodium 134, chloride 100, total calcium 7.8, total bilirubin 2.0, direct bilirubin 1.2, AST 138, alkaline phosphatase 297, albumin three pace 72. While in the ER patient received morphine 4 mg IV, Zofran 4 mg IV admit patient for further medical management. SUBJECTIVE: 08/24/25: Patient was seen and evaluated in ED 50. Patient was in alert, awake and oriented. Patient appeared to be in distress due to pain in right upper quadrant of abdomen and epigastrium. Patient reports the pain increases with eating food. Patient reports having chills but denies pain. Patient reports nausea associated with pain. Patient reports he had diarrhea today in the morning but no prior episode of change in bowel movement. Patient denies any burning micturition, change in urinary frequency or dysphagia. Pertinent labs- T. bilirubin 2.0, D. bilirubin- 1.2, AST-138, ALT-64, ALP-297, Lipase -72. 08/25/25: Patient was seen and evaluated in 316. Patient reports the pain has gotten better compared to prior day. Patient reports having lower abdominal discomfort around the bladder during the night, but doesn't have it anymore when he woke up. Patient denies any fever, chills, nausea, vomiting and burning sensation. Patient denies any diarrhea or constipation. Pertinent labs- T. bilirubin 4.7, AST-152, ALT-64, ALP-294. 08/26/25: Patient was seen and evaluated in 316. Patient reports the pain has gotten better than previous two days. Patient denies any lower abdominal discomfort today. patient reports that he passed semi solid stool once today but reports it is hasnt happened again. Patient denies any fever, chills, nausea, vomiting and burning sensation. Pertinent labs- T. bilirubin 5.3, AST-167, ALT- 70, ALP-285. 08/27/25: Patient was seen and evaluated in 316. Patient reports that his pain is far better today than admission day, and is localized more on the right upper quadrant and no epigastric pain. Patient reports that he is passing hard stools but passed a single episode of semisolid stool again. Patient denies any fever, chills, nausea, vomiting and burning sensation. Pertinent labs- T. bilirubin 4.3, AST-196, ALT-75, ALP-275. REVIEW OF SYSTEMS CONSTITUTIONAL: Denies fevers, chills, or night sweats. No unintentional weight loss reported. NEUROLOGICAL: Denies headache, amaurosis fugax, motor weakness, sensory deficit, vertigo/spinning sensation, gait abnormalities, or tremors. ENT: No hearing loss, otalgia, otorrhea, rhinitis, rhinorrhea, hoarseness, or sore throat. CARDIOVASCULAR: Denies any exertional angina, dyspnea on exertion, orthopnea, paroxysmal nocturnal dyspnea, palpitations, life-threatening arrhythmias, claudication. PULMONARY: Denies any shortness of breath, cough, phlegm/sputum, hemoptysis, pleuritic chest pain. SLEEP: Denies morning headaches, daytime somnolence or napping. Denies difficulty falling asleep, staying asleep, waking from sleep. Denies knowledge of snoring. GASTROINTESTINAL: Complained of right upper quadrant abdominal pain nausea and vomiting Denies any type of dysphagia to either liquids or solids. Deniespyrosis, early satiety, diarrhea, constipation, or changes in stool consistency or caliber. Denies coffee-ground emesis, hematemesis, hematochezia, or melanotic stools. GENITOURINARY: Denies frequency, urgency, nocturia, hematuria or incontinence (Storage/Irritative symptoms.) Low urinary stream, straining to void, urinary intermittency or hesitancy, splitting of the voiding stream, terminal dribbling. ENDOCRINOLOGIC: Denies polyuria, polydipsia, polyphagia or heat/cold intolerances. HEMATOLOGIC: Denies thrombophilia/previous clots, or coagulopathy/bleeding disorders. ONCOLOGIC: Denies personal history of malignancy. DERMATOLOGIC: Denies rashes or pruritus. PSYCHIATRIC: Denies any suicidal or homicidal ideation. Denies hallucinations. PHYSICAL EXAM GENERAL APPEARANCE: The patient is awake, alert, and oriented, in no acute cardiopulmonary distress. NEUROLOGICAL: Cranial nerves II-XII grossly intact. Motor is 5/5 in bilateral upper and lower extremities proximal to distal. No sensory deficits. HEENT: Face is symmetric. Pupils are equal and reactive. Extraocular movements are intact. NECK: Supple. No JVD. No thyromegaly. No submental, submandibular, pre- /postauricular, occipital or supraclavicular lymphadenopathy. CHEST: Normal chest expansion. No Telemetry. LUNGS: Absence of any rales, rhonchi or any wheezing. CARDIOVASCULAR: Regular. S1 and S2 normal. No appreciable rubs, murmurs or gallops. ABDOMEN: Tenderness around right upper quadrant palpation and epigastrium. Rigidity was present on the Right upper quadrant and epigastrium. There is no voluntary guarding or rebound tenderness. : Deferred. No [place]. EXTREMITIES: Non-edematous and not cyanotic. No clubbing. Good capillary refill. SKIN: No skin breakdown. Vital Signs (last 8hr) Date Time Temp Pulse Resp B/P (MAP) Pulse Ox O2 Delivery O2 Flow Rate FiO2 08/27/25 08:00 98.4 80 18 128/90 96 Room Air 08/27/25 04:14 96.8 69 18 143/77 98 Room Air LABS: Laboratory: Test 08/27/25 06:43 08/26/25 04:51 Range/Units White Blood Count 5.8 4.8-10.8 K/uL Red Blood Count 4.17 L 4.50-6.20 MIL/uL Hemoglobin 12.1 L 14.0-18.0 g/dL Hematocrit 36.6 L 42-54 % Mean Corpuscular Volume 87.8 79-99 fL Mean Corpuscular Hemoglobin 29.0 27.0-33.0 pg Mean Corpuscular Hemoglobin Concent 33.1 32.0-36.0 g/dL Red Cell Distribution Width 17.2 H 11.0-15.5 % Platelet Count 146 130-400 K/uL Mean Platelet Volume 9.6 7.5-10.5 fL Immature Granulocyte % (Auto) 0.3 0-1 % Neutrophils (%) (Auto) 60.2 40.0-77.0 % Lymphocytes (%) (Auto) 22.5 21.0-51.0 % Monocytes (%) (Auto) 12.0 3.0-13.0 % Eosinophils (%) (Auto) 4.1 0.0-8.0 % Basophils (%) (Auto) 0.9 0.0-5.0 % Neutrophils # (Auto) 3.5 1.8-7.7 K/uL Lymphocytes # (Auto) 1.3 1.0-4.8 K/uL Monocytes # (Auto) 0.7 0.1-1.0 K/uL Eosinophils # (Auto) 0.24 0.00-0.70 K/uL Basophils # (Auto) 0.05 0.00-0.20 K/uL Absolute Immature Granulocyte (auto 0.02 0-1 K/uL Nucleated Red Blood Cells 0.0 0.0-0.19 % Sodium Level 136 136-145 mmol/L Potassium Level 3.6 3.5-5.1 mmol/L Chloride Level 103 101-111 mmol/L Carbon Dioxide Level 22 21-32 mmol/L Blood Urea Nitrogen 10 7-18 mg/dL Creatinine 0.8 0.5-1.3 mg/dL Glomerular Filtration Rate Calc 115 >90 mL/min Random Glucose 81 70-105 mg/dL Total Calcium 8.3 L 8.5-10.1 mg/dL Total Bilirubin 4.3 H 0.2-1.0 mg/dL Aspartate Amino Transf (AST/SGOT) 196 H 10-37 U/L Alanine Aminotransferase (ALT/SGPT) 75 12-78 U/L Alkaline Phosphatase 275 H 50-136 U/L Total Protein 8.0 6.0-8.3 g/dL Albumin 2.8 L 3.5-5.0 g/dL Triglycerides Level 126 30-200 mg/dL Cholesterol Level 196 <200 mg/dL LDL Cholesterol 142 H 0-99 mg/dL HDL Cholesterol 27 L 29-71 mg/dL Amylase Level 62 25-115 U/L Lipase 109 H 16-77 U/L Current Medications Medications (Trade) Dose Ordered Sig/Jarad Route PRN Reason Start Time Stop Time Status Last Admin Dose Admin Ceftriaxone Sodium (ROCEphine 1G INJ) 1 gm Q24H IV 08/24/25 05:00 08/24/25 20:18 DC 08/24/25 05:35 1 GM Famotidine (Pepcid 20mg Vial) 20 mg DAILY IV 08/24/25 09:00 09/23/25 08:59 08/26/25 09:39 20 MG Hydroxyzine HCl (ATArax 25MG TAB) 25 mg TID PRN PO ANXIETY 08/24/25 14:30 09/23/25 14:29 08/26/25 23:08 25 MG Ketorolac Tromethamine (toRADol) 15 mg Q6H PRN IV MODERATE PAIN (4-6) 08/24/25 06:30 08/29/25 06:29 08/26/25 09:40 15 MG Losartan Potassium (CozAAR 100MG TAB) 100 mg DAILY PO 08/26/25 09:00 09/25/25 08:59 08/26/25 09:40 100 MG Metronidazole/ Sodium Chloride 100 ml @ 100 mls/hr Q8H IV 08/24/25 05:00 08/24/25 20:18 DC 08/24/25 14:03 100 MLS/HR Morphine Sulfate (morPHINE 2MG SYG) 2 mg Q4H PRN IV SEVERE PAIN (7-10) 08/24/25 05:00 08/31/25 04:59 08/26/25 13:32 2 MG Ondansetron HCl (zoFRAN 4MG INJ) 4 mg Q6H PRN IV NAUSEA/VOMITING 08/24/25 05:00 09/23/25 04:59 Pharmacy Profile Note (Pharmacy Communication) 1 each PROTOCOL PRN MISC ETOH Withdrawal Score changes 08/24/25 13:00 08/24/25 20:51 DC Piperacillin Sod/ Tazobactam Sod (Zosyn 3.375gm+NS 50ml) 3.375 gm Q8H IVPB 08/24/25 20:30 09/03/25 20:29 08/27/25 04:47 3.375 GM Potassium Chloride 100 ml @ 100 mls/hr AD PRN IV POTASSIUM PROTOCOL 08/26/25 08:30 09/25/25 08:29 Potassium Chloride (K-Dur/Klor-Con 20meq) 20 meq AD PRN PO POTASSIUM PROTOCOL 08/26/25 08:30 09/25/25 08:29 Potassium Chloride (KCl 10% Elixir 20meq/15ml) 20 meq AD PRN PO POTASSIUM PROTOCOL 08/26/25 08:30 09/25/25 08:29 Sodium Chloride 1,000 ml @ 100 mls/hr Q10H IV 08/24/25 05:00 09/23/25 04:59 08/27/25 02:47 100 MLS/HR Thiamine HCl (Vitamin B-1) 100 mg DAILY PO 08/25/25 09:00 09/24/25 08:59 08/26/25 09:39 100 MG DIAGNOSTICS / RADIOLOGY: [place] [address] IMAGING REPORT Signed PATIENT: DAX EDMOND MR#: [id number] : 1985 SEX: M AGE: 39 LOCATION: [facility] ORDER 1137 STATUS: ADM IN REPORT#: [id number] SERVICE 1135 REASON: acute cholecystitis versus choledocholithiasis ORDERING PHYSICIAN: EKTA RO MD PROCEDURE: MRCP WO - MRCP(ABDWO)CHOLANGIOPANCREATOG EXAM: MR Cholangiopancreatography CLINICAL HISTORY: Follow-up abdominal symptoms. TECHNIQUE: Multiplanar images were obtained without intravenous contrast, utilizing a series of customized pulse sequences. COMPARISON: US 08/24/2025 FINDINGS: Study limited by patient motion. LIVER: The liver is enlarged, measuring 22.5 cm in craniocaudal span, with diffuse hepatic steatosis. Minimal perihepatic fluid. GALLBLADDER AND BILIARY SYSTEM: Mild diffuse gallbladder wall thickening measuring up to 0.4 cm with minimal pericholecystic fat stranding. Layering bile and sludge in the gallbladder lumen. No gallbladder calculus. No biliary duct dilatation. No ductal stones. PANCREAS: Peripancreatic fluid and fat stranding along the pancreatic head and uncinate process. Minimal fluid and fat stranding along the retroperitoneal planes in the preaortic region, bilateral anterior pararenal fascia, and retroperitoneal segments of the duodenum. No pancreatic mass. SPLEEN: The spleen is enlarged, measuring 13.1 cm, with minimal perisplenic fluid. ADRENALS: Normal bilaterally. No masses. KIDNEYS: Normal in size and configuration. No stone, hydronephrosis, mass, or significant cyst. RETROPERITONEUM: Minimal retroperitoneal fluid and fat stranding as above. No lymphadenopathy. AORTA: The visualized abdominal aorta is normal in size and configuration. No stenosis or aneurysm. BOWEL/MESENTERY: No bowel dilatation or wall thickening. No free or loculated fluid apart from minimal inflammatory fluid as described. No mesenteric stranding or lymphadenopathy beyond the findings above. ABDOMINAL WALL: Normal. BONES: Normal. IMPRESSION: Study limited by patient motion. Hepatomegaly with diffuse hepatic steatosis and minimal perihepatic fluid. Peripancreatic and retroperitoneal inflammatory fluid and fat stranding adjacent to the pancreatic head and uncinate process, suspicious for acute pancreatitis; recommend correlation with serum amylase and lipase. Mild gallbladder wall thickening with minimal pericholecystic inflammatory change and layering sludge without gallstone. Splenomegaly with minimal perisplenic fluid. /Crooks DICTATED BY: JAZMIN HESTER MD DATE: 08/26/251655 ELECTRONICALLY SIGNED BY: JAZMIN HESTER MD DATE: 08/26/251655 ASSESSMENT: Suspected acute cholecystitis versus choledocholithiasis POA Gall bladder dyskinesia with EF of 29% Hypertension POA Anxiety disorder POA Obesity POA Acute normocytic normochromic anemia POA Acute thrombocytopenia POA Alcoholism POA PLAN: Suspected acute cholecystitis versus choledocholithiasis POA: * On presentation labs show T. bilirubin 2.0, D. bilirubin- 1.2, AST-138, ALT- 64, ALP-297, Lipase -72. Vitals temperature 98.2, heart rate 86, blood pressure 140/91 saturation 98% on room air. * Abdominal US was ordered, results show mildly hydropic gallbladder with no gallstone was evident. No pericholecystic fluid was evident. No definite acute cholecystitis was evident. * HIDA scan was ordered, results show gall bladder dyskinesia with EF of 29%. * MRCP was ordered, results show Hepatomegaly with diffuse hepatic steatosis and minimal perihepatic fluid. Peripancreatic and retroperitoneal inflammatory fluid and fat stranding adjacent to the pancreatic head and uncinate process, suspicious for acute pancreatitis. Mild gallbladder wall thickening with minimal pericholecystic inflammatory change and layering sludge without gallstone. Splenomegaly with minimal perisplenic fluid. * General surgery was consulted, will follow their recommendations. * Gastroenterology was consulted, will follow their recommendations. * Patient was started on broad spectrum antibiotics Ceftriaxone 1gm IV, Metronidazole was discontinued and he was started on Zosyn from 08/24/25. * Patient was started on IV fluids with Sodium Chloride. * Patient is NPO * Patient started on Morphine 2mg PRN, Ketorolac 15mg PRN for analgesia. * Patient started on Ondansetron 4mg for nausea and vomiting. Alcoholism POA Initiated [facility] protocol Will Monitor for signs of alcohol withdrawal Supportive measures: We will replace electrolytes as needed per protocol. Started on famotidine 20 mg IV daily for GI prophylaxis. DVT prophylaxis with SCD's ATTESTATION BY PHYSICIAN I have seen and examined the patient. I reviewed the documentation, medical decision making, and treatment plan as noted by the resident physician above. I agree with the findings and plan of care. CAMILLA GALVEZ MD, SHAJI MD Aug 27, 2025 09:40
--- NOTE | 2025-08-27 12:57 | PN ---
GASTROENTEROLOGY PROGRESS NOTE Date of Visit: Aug 27, 2025 Time of Visit: 12:57 Events / Notes: No acute events overnight. HIDA scan biliary dyskinesia however MRCP revealing hepatomegaly with fat stranding adjacent to the pancreatic head concerning for acute pancreatitis. Mild gallbladder wall thickening with minimal Chris cholecystic inflammatory change and layering sludge. Splenomegaly also seen. LFTs did trend down today. Review of Systems: CONSTITUTIONAL: No malaise or change in sensation of wellbeing. ENMT: No rhinorrhea, otorrhea, sinus pain, ear ache. CARDIOVASCULAR: No angina, palpitations, orthopnea or paroxysmal dyspnea. RESPIRATORY: No SOB. GASTROINTESTINAL: No abdominal pain, nausea, vomiting, diarrhea, hematemesis, melena or change in the patient's habitual bowel movements consistency/number. GENITOURINARY: No dysuria, hematuria or change in bladder continence. MUSCULOSKELETAL: No new muscle pain or decrease in muscular strength. No new joint swelling, redness or tenderness. SKIN: No new rash. Physical Exam: GEN: Awake, alert, oriented in person, time and place, and in no acute distress. HEENT: No sinus tenderness. Tympanic membranes were not examined. No rhinorrhea. Oral pharyngeal mucosa is pink, moist and within normal limits. Neck is supple with no cervical lymphadenopathy, thyromegaly or JVD. CHEST: Inspection, palpation and percussion of the chest were unremarkable. Lung auscultation revealed normal breath sounds bilaterally. CARDIAC: PMI is within normal limits. Heart sounds are regular. Normal S1, S2. No gallop or murmur. ABD: Soft, non-tender and not distended. No peritoneal signs on palpation. No organomegaly. Normal bowel sounds. EXT: No cyanosis or clubbing. No edema. SKIN: Intact. No rashes. JOINTS: No evidence of synovitis or acute arthritis. NEURO: Alert and oriented to name, place and person. Cranial nerve examination is unremarkable. No focal motor deficits. Normal speech. Gait is normal. Strength is normal. Vital Signs (last 8hr) Date Time Temp Pulse Resp B/P (MAP) Pulse Ox O2 Delivery O2 Flow Rate FiO2 08/27/25 12:00 98.4 73 18 144/76 97 Room Air 08/27/25 08:00 98.4 80 18 128/90 96 Room Air Laboratory: [ ] Laboratory: Test 08/27/25 06:43 08/26/25 04:51 Range/Units White Blood Count 5.8 4.8-10.8 K/uL Red Blood Count 4.17 L 4.50-6.20 MIL/uL Hemoglobin 12.1 L 14.0-18.0 g/dL Hematocrit 36.6 L 42-54 % Mean Corpuscular Volume 87.8 79-99 fL Mean Corpuscular Hemoglobin 29.0 27.0-33.0 pg Mean Corpuscular Hemoglobin Concent 33.1 32.0-36.0 g/dL Red Cell Distribution Width 17.2 H 11.0-15.5 % Platelet Count 146 130-400 K/uL Mean Platelet Volume 9.6 7.5-10.5 fL Immature Granulocyte % (Auto) 0.3 0-1 % Neutrophils (%) (Auto) 60.2 40.0-77.0 % Lymphocytes (%) (Auto) 22.5 21.0-51.0 % Monocytes (%) (Auto) 12.0 3.0-13.0 % Eosinophils (%) (Auto) 4.1 0.0-8.0 % Basophils (%) (Auto) 0.9 0.0-5.0 % Neutrophils # (Auto) 3.5 1.8-7.7 K/uL Lymphocytes # (Auto) 1.3 1.0-4.8 K/uL Monocytes # (Auto) 0.7 0.1-1.0 K/uL Eosinophils # (Auto) 0.24 0.00-0.70 K/uL Basophils # (Auto) 0.05 0.00-0.20 K/uL Absolute Immature Granulocyte (auto 0.02 0-1 K/uL Nucleated Red Blood Cells 0.0 0.0-0.19 % Sodium Level 136 136-145 mmol/L Potassium Level 3.6 3.5-5.1 mmol/L Chloride Level 103 101-111 mmol/L Carbon Dioxide Level 22 21-32 mmol/L Blood Urea Nitrogen 10 7-18 mg/dL Creatinine 0.8 0.5-1.3 mg/dL Glomerular Filtration Rate Calc 115 >90 mL/min Random Glucose 81 70-105 mg/dL Total Calcium 8.3 L 8.5-10.1 mg/dL Total Bilirubin 4.3 H 0.2-1.0 mg/dL Aspartate Amino Transf (AST/SGOT) 196 H 10-37 U/L Alanine Aminotransferase (ALT/SGPT) 75 12-78 U/L Alkaline Phosphatase 275 H 50-136 U/L Total Protein 8.0 6.0-8.3 g/dL Albumin 2.8 L 3.5-5.0 g/dL Triglycerides Level 126 30-200 mg/dL Cholesterol Level 196 <200 mg/dL LDL Cholesterol 142 H 0-99 mg/dL HDL Cholesterol 27 L 29-71 mg/dL Amylase Level 62 25-115 U/L Lipase 109 H 16-77 U/L Current Medications Medications (Trade) Dose Ordered Sig/Jarad Route PRN Reason Start Time Stop Time Status Last Admin Dose Admin Ceftriaxone Sodium (ROCEphine 1G INJ) 1 gm Q24H IV 08/24/25 05:00 08/24/25 20:18 DC 08/24/25 05:35 1 GM Famotidine (Pepcid 20mg Vial) 20 mg DAILY IV 08/24/25 09:00 09/23/25 08:59 08/27/25 09:24 20 MG Hydroxyzine HCl (ATArax 25MG TAB) 25 mg TID PRN PO ANXIETY 08/24/25 14:30 09/23/25 14:29 08/26/25 23:08 25 MG Ketorolac Tromethamine (toRADol) 15 mg Q6H PRN IV MODERATE PAIN (4-6) 08/24/25 06:30 08/29/25 06:29 08/26/25 09:40 15 MG Losartan Potassium (CozAAR 100MG TAB) 100 mg DAILY PO 08/26/25 09:00 09/25/25 08:59 08/27/25 09:24 100 MG Metronidazole/ Sodium Chloride 100 ml @ 100 mls/hr Q8H IV 08/24/25 05:00 08/24/25 20:18 DC 08/24/25 14:03 100 MLS/HR Morphine Sulfate (morPHINE 2MG SYG) 2 mg Q4H PRN IV SEVERE PAIN (7-10) 08/24/25 05:00 08/31/25 04:59 08/27/25 09:28 2 MG Ondansetron HCl (zoFRAN 4MG INJ) 4 mg Q6H PRN IV NAUSEA/VOMITING 08/24/25 05:00 09/23/25 04:59 Pharmacy Profile Note (Pharmacy Communication) 1 each PROTOCOL PRN MISC ETOH Withdrawal Score changes 08/24/25 13:00 08/24/25 20:51 DC Piperacillin Sod/ Tazobactam Sod (Zosyn 3.375gm+NS 50ml) 3.375 gm Q8H IVPB 08/24/25 20:30 09/03/25 20:29 08/27/25 04:47 3.375 GM Potassium Chloride 100 ml @ 100 mls/hr AD PRN IV POTASSIUM PROTOCOL 08/26/25 08:30 09/25/25 08:29 Potassium Chloride (K-Dur/Klor-Con 20meq) 20 meq AD PRN PO POTASSIUM PROTOCOL 08/26/25 08:30 09/25/25 08:29 Potassium Chloride (KCl 10% Elixir 20meq/15ml) 20 meq AD PRN PO POTASSIUM PROTOCOL 08/26/25 08:30 09/25/25 08:29 Sodium Chloride 1,000 ml @ 100 mls/hr Q10H IV 08/24/25 05:00 09/23/25 04:59 08/27/25 02:47 100 MLS/HR Thiamine HCl (Vitamin B-1) 100 mg DAILY PO 08/25/25 09:00 09/24/25 08:59 08/27/25 09:24 100 MG Diagnostics / Radiology: [COPY/PASTE HERE IF NO REPORTS PLEASE DELETE SECTION] Assessment: Abnormal LFTs Thrombocytopenia, concerning for liver disease Abdominal pain N/V Alcohol use Plan: ERCP not warranted Thrombocytopenia and abnormal LFTs concerning for liver disease in a patient with hx alcohol abuse Trend LFTs Continue GI prophylaxis Avoid NSAIDs Antireflux measures Monitor H&H and transfuse as needed Call with questions, concerns or change in clinical status Patient to follow-up at clinic post discharge Thank you for this consult OSEAS PAIZ CONE FORMER Aug 27, 2025 12:57
--- NOTE | 2025-08-27 17:55 | PN ---
GENERAL SURGERY PROGRESS NOTE DATE OF SERVICE: Aug 27, 2025 TIME OF SERVICE: 17:55 Persistent right upper quadrant pain Nausea Has not been able to tolerates diet with no pain PROBLEM LISTS: [ ] Biliary dyskinesia Rule out acute cholecystitis INTERVAL HISTORY: [ ] Persistent pain and nausea MRCP with no evidence of choledocholithiasis PHYSICAL EXAMINATION: GENERAL: [Patient is lying comfortably in bed, not in any obvious distress.] HEAD: [Normal with no signs of head trauma.] EYES: [Not pale not jaundiced afebrile to touch.] ENT: [ Normal.] NECK: [Supple,no tenderness,no lymphadenopathy,no masses,no thyromegaly ,no bruits, no JVD.] LUNGS: [Clear breath sounds bilaterally. No wheezes, rales, or rhonchi.] HEART: [Regular rate and rhythm. Normal S1 and S2, without murmurs, rub or gallop.] VASC: [No edema. Peripheral pulses normal and equal in all extremities.] ABD: [Bowel sounds present,soft, RUQ tender, no masses, no organomegaly.] : [Normal, no suprapubic tenderness.] LYMPH: [No lymphadenopathy noted.] EXT: [ Warm soft, non tender.] SKIN: [ No rashes or lesions.] NEURO: [ Awake Alert and oriented x3.] LABORATORY: [ ] Hematology Labs: Test 08/27/25 06:43 Range/Units White Blood Count 5.8 4.8-10.8 K/uL Red Blood Count 4.17 L 4.50-6.20 MIL/uL Hemoglobin 12.1 L 14.0-18.0 g/dL Hematocrit 36.6 L 42-54 % Mean Corpuscular Volume 87.8 79-99 fL Mean Corpuscular Hemoglobin 29.0 27.0-33.0 pg Mean Corpuscular Hemoglobin Concent 33.1 32.0-36.0 g/dL Red Cell Distribution Width 17.2 H 11.0-15.5 % Platelet Count 146 130-400 K/uL Mean Platelet Volume 9.6 7.5-10.5 fL Immature Granulocyte % (Auto) 0.3 0-1 % Neutrophils (%) (Auto) 60.2 40.0-77.0 % Lymphocytes (%) (Auto) 22.5 21.0-51.0 % Monocytes (%) (Auto) 12.0 3.0-13.0 % Eosinophils (%) (Auto) 4.1 0.0-8.0 % Basophils (%) (Auto) 0.9 0.0-5.0 % Neutrophils # (Auto) 3.5 1.8-7.7 K/uL Lymphocytes # (Auto) 1.3 1.0-4.8 K/uL Monocytes # (Auto) 0.7 0.1-1.0 K/uL Eosinophils # (Auto) 0.24 0.00-0.70 K/uL Basophils # (Auto) 0.05 0.00-0.20 K/uL Absolute Immature Granulocyte (auto 0.02 0-1 K/uL Nucleated Red Blood Cells 0.0 0.0-0.19 % Chemistry Labs: Test 08/27/25 06:43 08/26/25 04:51 Range/Units Sodium Level 136 136-145 mmol/L Potassium Level 3.6 3.5-5.1 mmol/L Chloride Level 103 101-111 mmol/L Carbon Dioxide Level 22 21-32 mmol/L Blood Urea Nitrogen 10 7-18 mg/dL Creatinine 0.8 0.5-1.3 mg/dL Glomerular Filtration Rate Calc 115 >90 mL/min Random Glucose 81 70-105 mg/dL Total Calcium 8.3 L 8.5-10.1 mg/dL Total Bilirubin 4.3 H 0.2-1.0 mg/dL Aspartate Amino Transf (AST/SGOT) 196 H 10-37 U/L Alanine Aminotransferase (ALT/SGPT) 75 12-78 U/L Alkaline Phosphatase 275 H 50-136 U/L Total Protein 8.0 6.0-8.3 g/dL Albumin 2.8 L 3.5-5.0 g/dL Triglycerides Level 126 30-200 mg/dL Cholesterol Level 196 <200 mg/dL LDL Cholesterol 142 H 0-99 mg/dL HDL Cholesterol 27 L 29-71 mg/dL Amylase Level 62 25-115 U/L Lipase 109 H 16-77 U/L DIAGNOSTICS / RADIOLOGY: [Copy/Paste Echos/Imaging Report here] ASSESSMENT: [] Biliary dyskinesia Acute cholecystitis PLAN: OR for robotic/laparoscopic cholecystectomy CAMDEN ORELLANA MD Aug 27, 2025 17:55
--- NOTE | 2025-08-27 20:35 | NUR ---
MEDS SHIFT ASSESSMENT DONE, PLEASE REFER TO CHART. DUE MEDS ADMINISTERED, TOLERATE DWELL. KEPT RESTED AND COMFORTABLE IN BED. CALL LIGHT WITHIN REACH. INSTRUCTED TO BE NPO POST MN FOR SX IN AM, PT VERBALIZES UNDERSTANDING.
[2025-08-27] MEDS: PoTASSium chloRIDE 20MEQ ER 20 MEQ ERTAB PO PRN (20:51)
[2025-08-28] VITALS (24 sets, daily range): BP systolic 125–158; BP diastolic 85–103; PULSE 73–119; RESP 15–21; TEMP 97.3–98.7; O2SAT 95–97
--- NOTE | 2025-08-28 06:10 | NUR ---
CONSENT AWAKENED PT TO SHOWER. CONSENT FOR SX SIGNED BY PATIENT AND WITNESSED BY DECONTAMINATION TECHNICIAN, FORM PLACED IN CHART. KEPT NPO. FOR MORE CARE.
[2025-08-28 06:51] LABS: IMMATURE GRANULOCYTE ABSOLUTE 0.02 K/uL (0-1); NUCLEATED RED BLOOD CELLS 0.0 % (0.0-0.19); PLATELET COUNT (AUTO) 170 K/uL (130-400); RED BLOOD CELL COUNT(AUTO) 4.52 MIL/uL (4.50-6.20); RED CELL DISTRIBUTION WIDTH 17.7 % (11.0-15.5); WHITE BLOOD COUNT (AUTO) 6.5 K/uL (4.8-10.8)
[2025-08-28 07:05] LABS: ASPARTATE AMINOTRANSFERASE 259.0 U/L (10-37); CREATININE 0.8 mg/dL (0.5-1.3); GLOMERULAR FILTR. RATE CALC 115.0 mL/min (>90); GLUCOSE,RANDOM 83.0 mg/dL (70-105); SODIUM SERUM 134.0 mmol/L (136-145); TOTAL PROTEIN, SERUM 9.2 g/dL (6.0-8.3); UREA NITROGEN, BLOOD 8.0 mg/dL (7-18)
--- NOTE | 2025-08-28 16:04 | PN ---
[facility] PROGRESS NOTE Date of Service: Aug 28, 2025 Time of Service: 15:52 HISTORY OF PRESENT ILLNESS: This is a 39-year-old male with past medical history of anxiety disorder and hypertension who presents to the ED for complaints of right upper quadrant pain associated with nausea vomiting does last Saturday.Patient states pain is on and off and he has been taking Naproxen and Ibuprofen but pain got worsened today.Patient reports abdominal pain came back after eating 2 pizza bites.Patient reported having 3 episodes of nonbloody vomiting and patient also reports having fever yesterday at home with a temperature of 1:00 pm.patient reports he has similar episodes in the past last 03/21/2025. Seen and examined patient in the ER awake,alert and coherent,appears uncomfortable,7/10 pain level.Patient denies chest pain,palpitation ,shortness of breath,and diarrhea. Latest vital signs temperature 98.2, heart rate 86, blood pressure 140/91 saturation 98% on room air. Abdominal ultrasound result revealed mildly hydropic gallbladder. No gallstone is evident at this time pericholecystic fluid is evident. No definite acute cholecystitis is evident at this time commit HIDA scan for further evaluation. Hepatomegaly and hepatic steatosis. Labs: Hemoglobin 11, hematocrit 35, platelet count 113. Sodium 134, chloride 100, total calcium 7.8, total bilirubin 2.0, direct bilirubin 1.2, AST 138, alkaline phosphatase 297, albumin three pace 72. While in the ER patient received morphine 4 mg IV, Zofran 4 mg IV admit patient for further medical management. SUBJECTIVE: 08/24/25: Patient was seen and evaluated in ED 50. Patient was in alert, awake and oriented. Patient appeared to be in distress due to pain in right upper quadrant of abdomen and epigastrium. Patient reports the pain increases with eating food. Patient reports having chills but denies pain. Patient reports nausea associated with pain. Patient reports he had diarrhea today in the morning but no prior episode of change in bowel movement. Patient denies any burning micturition, change in urinary frequency or dysphagia. Pertinent labs- T. bilirubin 2.0, D. bilirubin- 1.2, AST-138, ALT-64, ALP-297, Lipase -72. 08/25/25: Patient was seen and evaluated in 316. Patient reports the pain has gotten better compared to prior day. Patient reports having lower abdominal discomfort around the bladder during the night, but doesn't have it anymore when he woke up. Patient denies any fever, chills, nausea, vomiting and burning sensation. Patient denies any diarrhea or constipation. Pertinent labs- T. bilirubin 4.7, AST-152, ALT-64, ALP-294. 08/26/25: Patient was seen and evaluated in 316. Patient reports the pain has gotten better than previous two days. Patient denies any lower abdominal discomfort today. patient reports that he passed semi solid stool once today but reports it is hasnt happened again. Patient denies any fever, chills, nausea, vomiting and burning sensation. Pertinent labs- T. bilirubin 5.3, AST-167, ALT- 70, ALP-285. 08/27/25: Patient was seen and evaluated in 316. Patient reports that his pain is far better today than admission day, and is localized more on the right upper quadrant and no epigastric pain. Patient reports that he is passing hard stools but passed a single episode of semisolid stool again. Patient denies any fever, chills, nausea, vomiting and burning sensation. Pertinent labs- T. bilirubin 4.3, AST-196, ALT-75, ALP-275. 08/28/25: Patient was evaluated bedside this morning. No overnight event. He was complaining of moderate abdominal pain in the right upper quadrant. He is hemodynamically stable with the labs remarkable for total bilirubin 4.6, AST 259, ALT 113, ALP 300 and lipase 109. For acute pancreatitis patient has been conservatively managed. For acute cholecystitis with biliary dyskinesia the patient is scheduled for lap cholecystectomy today. He is being treated with Zon. Surgery and GI on the board. Rest of the plan as discussed below. REVIEW OF SYSTEMS CONSTITUTIONAL: Denies fevers, chills, or night sweats. No unintentional weight loss reported. NEUROLOGICAL: Denies headache, amaurosis fugax, motor weakness, sensory deficit, vertigo/spinning sensation, gait abnormalities, or tremors. ENT: No hearing loss, otalgia, otorrhea, rhinitis, rhinorrhea, hoarseness, or sore throat. CARDIOVASCULAR: Denies any exertional angina, dyspnea on exertion, orthopnea, paroxysmal nocturnal dyspnea, palpitations, life-threatening arrhythmias, trini dication. PULMONARY: Denies any shortness of breath, cough, phlegm/sputum, hemoptysis, pleuritic chest pain. SLEEP: Denies morning headaches, daytime somnolence or napping. Denies difficulty falling asleep, staying asleep, waking from sleep. Denies knowledge of snoring. GASTROINTESTINAL: Complained of right upper quadrant abdominal pain nausea and vomiting Denies any type of dysphagia to either liquids or solids. Deniespyrosi s, early satiety, diarrhea, constipation, or changes in stool consistency or caliber. Denies coffee-ground emesis, hematemesis, hematochezia, or melanotic stools. GENITOURINARY: Denies frequency, urgency, nocturia, hematuria or incontinence (Storage/Irritative symptoms.) Low urinary stream, straining to void, urinary intermittency or hesitancy, splitting of the voiding stream, terminal dribbling. ENDOCRINOLOGIC: Denies polyuria, polydipsia, polyphagia or heat/cold intolerances. HEMATOLOGIC: Denies thrombophilia/previous clots, or coagulopathy/bleeding disorders. ONCOLOGIC: Denies personal history of malignancy. DERMATOLOGIC: Denies rashes or pruritus. PSYCHIATRIC: Denies any suicidal or homicidal ideation. Denies hallucinations. PHYSICAL EXAM GENERAL APPEARANCE: The patient is awake, alert, and oriented, in no acute cardiopulmonary distress. NEUROLOGICAL: Cranial nerves II-XII grossly intact. Motor is 5/5 in bilateral upper and lower extremities proximal to distal. No sensory deficits. HEENT: Face is symmetric. Pupils are equal and reactive. Extraocular movements are intact. NECK: Supple. No JVD. No thyromegaly. No submental, submandibular, pre- /postauricular, occipital or supraclavicular lymphadenopathy. CHEST: Normal chest expansion. No Telemetry. LUNGS: Absence of any rales, rhonchi or any wheezing. CARDIOVASCULAR: Regular. S1 and S2 normal. No appreciable rubs, murmurs or gallops. ABDOMEN: Tenderness around right upper quadrant palpation and epigastrium.There is no voluntary guarding or rebound tenderness. : Deferred. No [place]. EXTREMITIES: Non-edematous and not cyanotic. No clubbing. Good capillary refill. SKIN: No skin breakdown. Vital Signs (last 8hr) Date Time Temp Pulse Resp B/P (MAP) Pulse Ox O2 Delivery O2 Flow Rate FiO2 11/15/25 12:00 98.2 73 18 139/98 98 Room Air 08/28/25 08:00 98.8 83 18 146/93 97 Room Air LABS: Laboratory: Test 08/28/25 06:39 08/27/25 06:43 Range/Units White Blood Count 6.5 4.8-10.8 K/uL Red Blood Count 4.52 4.50-6.20 MIL/uL Hemoglobin 12.9 L 14.0-18.0 g/dL Hematocrit 39.4 L 42-54 % Mean Corpuscular Volume 87.2 79-99 fL Mean Corpuscular Hemoglobin 28.5 27.0-33.0 pg Mean Corpuscular Hemoglobin Concent 32.7 32.0-36.0 g/dL Red Cell Distribution Width 17.7 H 11.0-15.5 % Platelet Count 170 130-400 K/uL Mean Platelet Volume 9.2 7.5-10.5 fL Immature Granulocyte % (Auto) 0.3 0-1 % Neutrophils (%) (Auto) 57.5 40.0-77.0 % Lymphocytes (%) (Auto) 28.1 21.0-51.0 % Monocytes (%) (Auto) 9.5 3.0-13.0 % Eosinophils (%) (Auto) 3.4 0.0-8.0 % Basophils (%) (Auto) 1.2 0.0-5.0 % Neutrophils # (Auto) 3.8 1.8-7.7 K/uL Lymphocytes # (Auto) 1.8 1.0-4.8 K/uL Monocytes # (Auto) 0.6 0.1-1.0 K/uL Eosinophils # (Auto) 0.22 0.00-0.70 K/uL Basophils # (Auto) 0.08 0.00-0.20 K/uL Absolute Immature Granulocyte (auto 0.02 0-1 K/uL Nucleated Red Blood Cells 0.0 0.0-0.19 % Sodium Level 134 L 136-145 mmol/L Potassium Level 3.8 3.5-5.1 mmol/L Chloride Level 100 L 101-111 mmol/L Carbon Dioxide Level 26 21-32 mmol/L Blood Urea Nitrogen 8 7-18 mg/dL Creatinine 0.8 0.5-1.3 mg/dL Glomerular Filtration Rate Calc 115 >90 mL/min Random Glucose 83 70-105 mg/dL Total Calcium 9.0 8.5-10.1 mg/dL Total Bilirubin 4.6 H 0.2-1.0 mg/dL Aspartate Amino Transf (AST/SGOT) 259 H 10-37 U/L Alanine Aminotransferase (ALT/SGPT) 113 #H 12-78 U/L Alkaline Phosphatase 300 H 50-136 U/L Total Protein 9.2 H 6.0-8.3 g/dL Albumin 3.2 L 3.5-5.0 g/dL Triglycerides Level 126 30-200 mg/dL Cholesterol Level 196 <200 mg/dL LDL Cholesterol 142 H 0-99 mg/dL HDL Cholesterol 27 L 29-71 mg/dL Current Medications Medications (Trade) Dose Ordered Sig/Jarad Route PRN Reason Start Time Stop Time Status Last Admin Dose Admin Ceftriaxone Sodium (ROCEphine 1G INJ) 1 gm Q24H IV 08/24/25 05:00 08/24/25 20:18 DC 08/24/25 05:35 1 GM Famotidine (Pepcid 20mg Vial) 20 mg DAILY IV 08/24/25 09:00 09/23/25 08:59 08/28/25 08:14 20 MG Hydroxyzine HCl (ATArax 25MG TAB) 25 mg TID PRN PO ANXIETY 08/24/25 14:30 09/23/25 14:29 08/27/25 22:36 25 MG Ketorolac Tromethamine (toRADol) 15 mg Q6H PRN IV MODERATE PAIN (4-6) 08/24/25 06:30 08/29/25 06:29 08/27/25 20:51 15 MG Losartan Potassium (CozAAR 100MG TAB) 100 mg DAILY PO 08/26/25 09:00 09/25/25 08:59 08/27/25 09:24 100 MG Metronidazole/ Sodium Chloride 100 ml @ 100 mls/hr Q8H IV 08/24/25 05:00 08/24/25 20:18 DC 08/24/25 14:03 100 MLS/HR Morphine Sulfate (morPHINE 2MG SYG) 2 mg Q4H PRN IV SEVERE PAIN (7-10) 08/24/25 05:00 08/31/25 04:59 08/27/25 09:28 2 MG Ondansetron HCl (zoFRAN 4MG INJ) 4 mg Q6H PRN IV NAUSEA/VOMITING 08/24/25 05:00 09/23/25 04:59 Pharmacy Profile Note (Pharmacy Communication) 1 each PROTOCOL PRN MISC ETOH Withdrawal Score changes 08/24/25 13:00 08/24/25 20:51 DC Piperacillin Sod/ Tazobactam Sod (Zosyn 3.375gm+NS 50ml) 3.375 gm Q8H IVPB 08/24/25 20:30 09/03/25 20:29 08/28/25 13:45 3.375 GM Potassium Chloride 100 ml @ 100 mls/hr AD PRN IV POTASSIUM PROTOCOL 08/26/25 08:30 09/25/25 08:29 Potassium Chloride (K-Dur/Klor-Con 20meq) 20 meq AD PRN PO POTASSIUM PROTOCOL 08/26/25 08:30 09/25/25 08:29 08/27/25 22:37 20 MEQ Potassium Chloride (KCl 10% Elixir 20meq/15ml) 20 meq AD PRN PO POTASSIUM PROTOCOL 08/26/25 08:30 09/25/25 08:29 Sodium Chloride 1,000 ml @ 100 mls/hr Q10H IV 08/24/25 05:00 08/28/25 03:21 DC 08/27/25 20:32 100 MLS/HR Thiamine HCl (Vitamin B-1) 100 mg DAILY PO 08/25/25 09:00 09/24/25 08:59 08/27/25 09:24 100 MG DIAGNOSTICS / RADIOLOGY: [ ] ASSESSMENT: Acute cholecystitis POA Gall bladder dyskinesia with EF of 29%, POA Acute pancreatitis, POA Hypertension POA Anxiety disorder POA Obesity POA Acute normocytic normochromic anemia POA Acute thrombocytopenia POA Alcoholism POA PLAN: Acute cholecystitis, POA: Biliary dyskinesia EF 29%, POA Acute pancreatitis, POA * On presentation labs show T. bilirubin 2.0, D. bilirubin- 1.2, AST-138, ALT- 64, ALP-297, Lipase -109. Vitals temperature 98.2, heart rate 86, blood pressure 140/91 saturation 98% on room air. * Abdominal US was ordered, results show mildly hydropic gallbladder with no gallstone was evident. No pericholecystic fluid was evident. No definite acute cholecystitis was evident. * HIDA scan was ordered, results show gall bladder dyskinesia with EF of 29%. * MRCP was ordered, results show Hepatomegaly with diffuse hepatic steatosis and minimal perihepatic fluid. Peripancreatic and retroperitoneal inflammatory fluid and fat stranding adjacent to the pancreatic head and uncinate process, suspicious for acute pancreatitis. Mild gallbladder wall thickening with minimal pericholecystic inflammatory change and layering sludge without gallstone. Splenomegaly with minimal perisplenic fluid. * Patient was started on broad spectrum antibiotics Ceftriaxone 1gm IV, Metronidazole was discontinued and he was started on Zosyn from 08/24/25. * Patient started on Morphine 2mg PRN, Ketorolac 15mg PRN for analgesia. * Patient started on Ondansetron 4mg for nausea and vomiting. * General surgery has a scheduled for lap/robotic cholecystectomy today. * Gastroenterology was consulted, will follow their recommendations. * We will monitor LFT, CBC and BMP. Alcoholism POA Initiated CIWA protocol Will Monitor for signs of alcohol withdrawal Supportive measures: We will replace electrolytes as needed per protocol. Started on famotidine 20 mg IV daily for GI prophylaxis. DVT prophylaxis with SCD's ATTESTATION BY PHYSICIAN I have seen and examined the patient. I reviewed the documentation, medical decision making, and treatment plan as noted by the resident provider above. I agree with the findings and plan of care. Сергей Luong IV, MD, SUNIL MD Aug 28, 2025 16:04
[2025-08-28] MEDS ORDERED: NEOSTIGMINE METHYLSULFATE 1MG/ML IV ONE (19:24)
[2025-08-28] MEDS ORDERED: LIDOCAINE PF 100MG/5ML (2%) SYRINGE 5ML ONE (19:24)
[2025-08-28] MEDS ORDERED: GLYCOPYRROLATE 0.2 MG/ML 5 ML VIAL ONE (19:24)
[2025-08-28] MEDS ORDERED: MIDAZOLAM HCL 1 MG/ML 2ML VIAL ONE (19:24)
[2025-08-28] MEDS ORDERED: SUCCINYLCHOLINE CHLORIDE 20 MG/ML 10 ML VIAL ONE (19:24)
[2025-08-28] MEDS: INDOCYANINE GREEN 25 MG VIAL IJ ONE (19:27)
[2025-08-28] MEDS ORDERED: PROMETHAZINE HCL 25 MG/ML 1ML AMPULE IM PRN (19:30)
[2025-08-28] MEDS ORDERED: LIDOCAINE 1%-EPI 1:100,000 20 ML VIAL ONE (19:31)
[2025-08-28] MEDS: LIDOCAINE 1%-EPI 1:100,000 20 ML VIAL IJ ONE (19:42)
[2025-08-28] MEDS ORDERED: MEPERIDINE-PF 25 MG/ML SYG IV ONE (20:00)
[2025-08-28] MEDS ORDERED: PHARMACY COMMUNICATION 1 EACH EACH MISC SCH (20:00)
--- NOTE | 2025-08-28 20:56 | OP ---
OP Procedure: Robotic [facility] OP Procedure Note OPERATIVE PROCEDURE NOTE DATE OF SERVICE: Aug 28, 2025 PREOPERATIVE DIAGNOSIS: Biliary dyskinesia POSTOPERATIVE DIAGNOSIS: Biliary dyskinesia Acute cholecystitis Liver cirrhosis PROCEDURES PREFORMED: Robotic Cholecystectomy SURGEON: Atilio Randolph MD ANESTHESIA: General. ESTIMATED BLOOD LOSS: Minimal. SPECIMEN(S) REMOVED: Gallbladder. FINDINGS: Cirrhotic looking liver Severe right upper quadrant inflammatory adhesions Enlarged gallbladder COMPLICATIONS: None. DESCRIPTION OF PROCEDURE: The patient was brought into the Operating Room. After proper identification, the patient was placed on the operating table in the supine position. General anesthesia was then administered and the patient was endotracheally intubated. Attention was then focussed in the area of the abdomen. The same was prepped and draped in the usual sterile fashion. An appropriate time-out was then carried out at this point. Then, I proceeded by making an incision in the infraumbilical region. The incision was carried through skin and subcutaneous tissue until the fascia was identified. The fascia was then carefully incised and the stay stitches were placed on either side of the fascia and the Jerry port was then introduced. CO2 was insufflated into the abdomen and the robotic camera was then introduced. Inspection of the abdomen did not show any anterior abdominal wall adhesions. The gallbladder was noted to be enlarged and tense with evidence of severe right upper quadrant inflammatory adhesions. So at this point, I proceeded by placing the left-sided port and also the right-sided port under vision and my commercial escrow assistant; port was then placed right- sided lateral. So, at this point, the patient was then placed in slight reverse Trendelenburg position and rotated to his left. The robot was then brought in and then we proceeded by docking the robot with no difficulty. Once the robot was docked and everything looked fine, I proceeded by going into the console area. My commercial escrow assistant, then grasped the fundus of the gallbladder and the same was retracted cephalad and using the grasper and the robotic [ ], I proceeded by taking down the inflammatory adhesions in the right upper quadrant. At the infundibulum, I proceeded by grasping the infundibulum, I proceeded by carefully opening the peritoneum covering the triangle of Calot and I was able to expose the cystic duct and the cystic artery. Each of these structures were then skeletonized for a distance of about 2 cm and then I proceeded by placing clips; proximal and distal clips on each of these structures. Using the robotic scissors, I proceeded by transecting these 2 structures. The gallbladder was then removed from the gallbladder fossa using the robotic cautery all the way down until I was able to remove it at the fundus as well. Further inspection did not reveal any other pathology. Hemostasis was noted to be adequate. So, at this point, the robot was then undocked. I scrubbed in and the gallbladder was then extracted from the abdomen using an Endopouch. Copious amount of irrigation was carried out at this point. Hemostasis was noted to be adequate. Then, I proceeded by closing the wound. Ports were withdrawn under vision. CO2 was let out of the abdomen. The infraumbilical fascia was approximated together using 0 Vicryl [id number] stitches and the skin was approximated together using skin demetria and sterile dressings were then applied. Instrument and sponges count was found correct x2. The patient was then woken up, extubated and taken to Recovery Room in stable condition. The patient tolerated the procedure well. ATILIO RANDOLPH MD Aug 28, 2025 20:56
[2025-08-29 04:00] VITALS: BP 136/87; PULSE 97; RESP 20; TEMP 98
[2025-08-29 05:01] LABS: IMMATURE GRANULOCYTE ABSOLUTE 0.04 K/uL (0-1); NUCLEATED RED BLOOD CELLS 0.0 % (0.0-0.19); PLATELET COUNT (AUTO) 193 K/uL (130-400); RED BLOOD CELL COUNT(AUTO) 4.35 MIL/uL (4.50-6.20); RED CELL DISTRIBUTION WIDTH 17.7 % (11.0-15.5); WHITE BLOOD COUNT (AUTO) 8.0 K/uL (4.8-10.8)
[2025-08-29 05:41] LABS: ASPARTATE AMINOTRANSFERASE 216.0 U/L (10-37); CREATININE 0.8 mg/dL (0.5-1.3); GLOMERULAR FILTR. RATE CALC 115.0 mL/min (>90); GLUCOSE,RANDOM 124.0 mg/dL (70-105); SODIUM SERUM 132.0 mmol/L (136-145); TOTAL PROTEIN, SERUM 8.5 g/dL (6.0-8.3); UREA NITROGEN, BLOOD 11.0 mg/dL (7-18)
[2025-08-29 07:54] VITALS: BP 102/66; PULSE 91; RESP 20; TEMP 97.8
[2025-08-29 08:00] VITALS: O2SAT 94
[2025-08-29 12:00] VITALS: BP 120/72; PULSE 93; RESP 20; TEMP 97.9
--- NOTE | 2025-08-29 12:27 | PN ---
[facility] PROGRESS NOTE Date of Service: Aug 29, 2025 Time of Service: 12:27 HISTORY OF PRESENT ILLNESS: This is a 39-year-old male with past medical history of anxiety disorder and hypertension who presents to the ED for complaints of right upper quadrant pain associated with nausea vomiting does last Saturday.Patient states pain is on and off and he has been taking Naproxen and Ibuprofen but pain got worsened today.Patient reports abdominal pain came back after eating 2 pizza bites.Patient reported having 3 episodes of nonbloody vomiting and patient also reports having fever yesterday at home with a temperature of 1:00 pm.patient reports he has similar episodes in the past last 03/21/2025. Seen and examined patient in the ER awake,alert and coherent,appears uncomfortable,7/10 pain level.Patient denies chest pain,palpitation ,shortness of breath,and diarrhea. Latest vital signs temperature 98.2, heart rate 86, blood pressure 140/91 saturation 98% on room air. Abdominal ultrasound result revealed mildly hydropic gallbladder. No gallstone is evident at this time pericholecystic fluid is evident. No definite acute cholecystitis is evident at this time commit HIDA scan for further evaluation. Hepatomegaly and hepatic steatosis. Labs: Hemoglobin 11, hematocrit 35, platelet count 113. Sodium 134, chloride 100, total calcium 7.8, total bilirubin 2.0, direct bilirubin 1.2, AST 138, alkaline phosphatase 297, albumin three pace 72. While in the ER patient received morphine 4 mg IV, Zofran 4 mg IV admit patient for further medical management. SUBJECTIVE: 08/24/25: Patient was seen and evaluated in ED 50. Patient was in alert, awake and oriented. Patient appeared to be in distress due to pain in right upper quadrant of abdomen and epigastrium. Patient reports the pain increases with eating food. Patient reports having chills but denies pain. Patient reports nausea associated with pain. Patient reports he had diarrhea today in the morning but no prior episode of change in bowel movement. Patient denies any burning micturition, change in urinary frequency or dysphagia. Pertinent labs- T. bilirubin 2.0, D. bilirubin- 1.2, AST-138, ALT-64, ALP-297, Lipase -72. 08/25/25: Patient was seen and evaluated in 316. Patient reports the pain has gotten better compared to prior day. Patient reports having lower abdominal discomfort around the bladder during the night, but doesn't have it anymore when he woke up. Patient denies any fever, chills, nausea, vomiting and burning sensation. Patient denies any diarrhea or constipation. Pertinent labs- T. bilirubin 4.7, AST-152, ALT-64, ALP-294. 08/26/25: Patient was seen and evaluated in 316. Patient reports the pain has gotten better than previous two days. Patient denies any lower abdominal discomfort today. patient reports that he passed semi solid stool once today but reports it is hasnt happened again. Patient denies any fever, chills, nausea, vomiting and burning sensation. Pertinent labs- T. bilirubin 5.3, AST-167, ALT- 70, ALP-285. 08/27/25: Patient was seen and evaluated in 316. Patient reports that his pain is far better today than admission day, and is localized more on the right upper quadrant and no epigastric pain. Patient reports that he is passing hard stools but passed a single episode of semisolid stool again. Patient denies any fever, chills, nausea, vomiting and burning sensation. Pertinent labs- T. bilirubin 4.3, AST-196, ALT-75, ALP-275. 08/28/25: Patient was evaluated bedside this morning. No overnight event. He was complaining of moderate abdominal pain in the right upper quadrant. He is hemodynamically stable with the labs remarkable for total bilirubin 4.6, AST 259, ALT 113, ALP 300 and lipase 109. For acute pancreatitis patient has been conservatively managed. For acute cholecystitis with biliary dyskinesia the patient is scheduled for lap cholecystectomy today. He is being treated with Zosyn. Surgery and GI on the board. Rest of the plan as discussed below. 08/29/25: Patient was evaluated bedside this morning. No overnight event. He was complaining of Severe abdominal pain 9/10 in the right upper quadrant relieved with morphine and dilaudid. He had lap cholecystectomy done yesterday and is hemodynamically stable. He reports he is walking well, has been passing a lot of gas,burping a lot and had a bowel movement this morning. We will order incentive spirometry as he does not have one today. He is currently on Rocephin and Zosyn. He reports slight tremors and anxiety. He is on CIAK protocol. Surgery and GI on the board. We will try to discharge tomorrow upon surgery recommendations. REVIEW OF SYSTEMS CONSTITUTIONAL: Denies fevers, chills, or night sweats. No unintentional weight loss reported. NEUROLOGICAL: Denies headache, amaurosis fugax, motor weakness, sensory deficit, vertigo/spinning sensation, gait abnormalities, or tremors. ENT: No hearing loss, otalgia, otorrhea, rhinitis, rhinorrhea, hoarseness, or sore throat. CARDIOVASCULAR: Denies any exertional angina, dyspnea on exertion, orthopnea, paroxysmal nocturnal dyspnea, palpitations, life-threatening arrhythmias, claudication. PULMONARY: Denies any shortness of breath, cough, phlegm/sputum, hemoptysis, pleuritic chest pain. SLEEP: Denies morning headaches, daytime somnolence or napping. Denies difficulty falling asleep, staying asleep, waking from sleep. Denies knowledge of snoring. GASTROINTESTINAL: Complained of right upper quadrant abdominal pain nausea and vomiting Denies any type of dysphagia to either liquids or solids. Deniespyrosis, early satiety, diarrhea, constipation, or changes in stool consistency or caliber. Denies coffee-ground emesis, hematemesis, hematochezia, or melanotic stools. GENITOURINARY: Denies frequency, urgency, nocturia, hematuria or incontinence (Storage/Irritative symptoms.) Low urinary stream, straining to void, urinary intermittency or hesitancy, splitting of the voiding stream, terminal dribbling. ENDOCRINOLOGIC: Denies polyuria, polydipsia, polyphagia or heat/cold intolerances. HEMATOLOGIC: Denies thrombophilia/previous clots, or coagulopathy/bleeding disorders. ONCOLOGIC: Denies personal history of malignancy. DERMATOLOGIC: Denies rashes or pruritus. PSYCHIATRIC: Denies any suicidal or homicidal ideation. Denies hallucinations. PHYSICAL EXAM GENERAL APPEARANCE: The patient is awake, alert, and oriented, in no acute cardiopulmonary distress. NEUROLOGICAL: Cranial nerves II-XII grossly intact. Motor is 5/5 in bilateral upper and lower extremities proximal to distal. No sensory deficits. HEENT: Face is symmetric. Pupils are equal and reactive. Extraocular movements are intact. NECK: Supple. No JVD. No thyromegaly. No submental, submandibular, pre- /postauricular, occipital or supraclavicular lymphadenopathy. CHEST: Normal chest expansion. No Telemetry. LUNGS: Absence of any rales, rhonchi or any wheezing. CARDIOVASCULAR: Regular. S1 and S2 normal. No appreciable rubs, murmurs or gallops. ABDOMEN: Tenderness around right upper quadrant palpation and epigastrium.There is no voluntary guarding or rebound tenderness. : Deferred. No Hamilton. EXTREMITIES: Non-edematous and not cyanotic. No clubbing. Good capillary refill. SKIN: No skin breakdown. Vital Signs (last 8hr) Date Time Temp Pulse Resp B/P (MAP) Pulse Ox O2 Delivery O2 Flow Rate FiO2 08/29/25 07:54 97.9 91 20 102/66 94 Room Air LABS: Laboratory: Test 08/29/25 04:49 Range/Units White Blood Count 8.0 4.8-10.8 K/uL Red Blood Count 4.35 L 4.50-6.20 MIL/uL Hemoglobin 12.8 L 14.0-18.0 g/dL Hematocrit 38.8 L 42-54 % Mean Corpuscular Volume 89.2 79-99 fL Mean Corpuscular Hemoglobin 29.4 27.0-33.0 pg Mean Corpuscular Hemoglobin Concent 33.0 32.0-36.0 g/dL Red Cell Distribution Width 17.7 H 11.0-15.5 % Platelet Count 193 130-400 K/uL Mean Platelet Volume 9.8 7.5-10.5 fL Immature Granulocyte % (Auto) 0.5 0-1 % Neutrophils (%) (Auto) 85.6 H 40.0-77.0 % Lymphocytes (%) (Auto) 9.6 L 21.0-51.0 % Monocytes (%) (Auto) 4.0 3.0-13.0 % Eosinophils (%) (Auto) 0.0 0.0-8.0 % Basophils (%) (Auto) 0.3 0.0-5.0 % Neutrophils # (Auto) 6.8 1.8-7.7 K/uL Lymphocytes # (Auto) 0.8 L 1.0-4.8 K/uL Monocytes # (Auto) 0.3 0.1-1.0 K/uL Eosinophils # (Auto) 0.00 0.00-0.70 K/uL Basophils # (Auto) 0.02 0.00-0.20 K/uL Absolute Immature Granulocyte (auto 0.04 0-1 K/uL Nucleated Red Blood Cells 0.0 0.0-0.19 % White Cell Morphology Comment See comments Sodium Level 132 L 136-145 mmol/L Potassium Level 4.4 3.5-5.1 mmol/L Chloride Level 99 L 101-111 mmol/L Carbon Dioxide Level 22 21-32 mmol/L Blood Urea Nitrogen 11 7-18 mg/dL Creatinine 0.8 0.5-1.3 mg/dL Glomerular Filtration Rate Calc 115 >90 mL/min Random Glucose 124 H 70-105 mg/dL Total Calcium 8.7 8.5-10.1 mg/dL Magnesium Level 2.00 1.80-2.40 mg/dL Total Bilirubin 4.5 H 0.2-1.0 mg/dL Aspartate Amino Transf (AST/SGOT) 216 H 10-37 U/L Alanine Aminotransferase (ALT/SGPT) 107 H 12-78 U/L Alkaline Phosphatase 251 H 50-136 U/L Total Protein 8.5 H 6.0-8.3 g/dL Albumin 2.9 L 3.5-5.0 g/dL Current Medications Medications (Trade) Dose Ordered Sig/Jarad Route PRN Reason Start Time Stop Time Status Last Admin Dose Admin Ceftriaxone Sodium (ROCEphine 1G INJ) 1 gm Q24H IV 08/24/25 05:00 08/24/25 20:18 DC 08/24/25 05:35 1 GM Famotidine (Pepcid 20mg Vial) 20 mg DAILY IV 08/24/25 09:00 09/23/25 08:59 08/29/25 08:26 20 MG Fentanyl Citrate (FENTanyl CITRate PF 50 MCG/ 1 ML 2ML VIAL) 25 mcg Q5MIN PRN IVP PAIN LEVEL 7 TO 10 08/28/25 19:30 08/28/25 21:21 DC 08/28/25 21:09 25 MCG Hydromorphone HCl (DiLAUDid 1MG INJ) 1 mg Q3H3 PRN IVP SEVERE PAIN (7-10) 08/28/25 23:00 09/02/25 22:59 08/29/25 08:26 1 MG Hydroxyzine HCl (ATArax 25MG TAB) 25 mg TID PRN PO ANXIETY 08/24/25 14:30 09/23/25 14:29 08/27/25 22:36 25 MG Ketorolac Tromethamine (toRADol) 15 mg Q6H PRN IV MODERATE PAIN (4-6) 08/24/25 06:30 08/29/25 06:29 DC 08/27/25 20:51 15 MG Ketorolac Tromethamine (toRADol) 30 mg AD PRN IV PAIN LEVEL 1 TO 3 08/28/25 19:30 08/28/25 21:21 DC Losartan Potassium (CozAAR 100MG TAB) 100 mg DAILY PO 08/26/25 09:00 09/25/25 08:59 08/27/25 09:24 100 MG Metoclopramide HCl (regLAN 10MG IV) 10 mg AD PRN IVP NAUSEA/VOMITING 08/28/25 19:30 08/28/25 21:21 DC Metronidazole/ Sodium Chloride 100 ml @ 100 mls/hr Q8H IV 08/24/25 05:00 08/24/25 20:18 DC 08/24/25 14:03 100 MLS/HR Morphine Sulfate (morPHINE 2MG SYG) 2 mg AD PRN IVP PAIN LEVEL 4 TO 6 08/28/25 19:30 08/28/25 21:21 DC Morphine Sulfate (morPHINE 2MG SYG) 2 mg Q4H PRN IV SEVERE PAIN (7-10) 08/24/25 05:00 08/28/25 22:56 DC 08/28/25 16:16 2 MG Naloxone HCl (NARcan 0.4mg/1 mL) 0.1 mg AD PRN IVP RESPIRATORY SYMPTOMS 08/28/25 19:30 08/28/25 21:21 DC Ondansetron HCl (zoFRAN 4MG INJ) 4 mg AD PRN IVP NAUSEA/VOMITING 08/28/25 19:30 08/28/25 21:21 DC Ondansetron HCl (zoFRAN 4MG INJ) 4 mg Q6H PRN IV NAUSEA/VOMITING 08/24/25 05:00 09/23/25 04:59 08/28/25 23:54 4 MG Oxycodone/ Acetaminophen (perCOCET) 1 tab Q4H PRN PO SEVERE PAIN (7-10) 08/28/25 23:00 09/04/25 22:59 Pharmacy Profile Note (Lace Assessment) 1 each AD MISC 08/28/25 20:00 08/28/25 19:55 DC Pharmacy Profile Note (Pharmacy Communication) 1 each PROTOCOL PRN MISC ETOH Withdrawal Score changes 08/24/25 13:00 08/24/25 20:51 DC Piperacillin Sod/ Tazobactam Sod (Zosyn 3.375gm+NS 50ml) 3.375 gm Q8H IVPB 08/24/25 20:30 09/03/25 20:29 08/29/25 03:41 3.375 GM Potassium Chloride 100 ml @ 100 mls/hr AD PRN IV POTASSIUM PROTOCOL 08/26/25 08:30 09/25/25 08:29 Potassium Chloride (K-Dur/Klor-Con 20meq) 20 meq AD PRN PO POTASSIUM PROTOCOL 08/26/25 08:30 09/25/25 08:29 08/27/25 22:37 20 MEQ Potassium Chloride (KCl 10% Elixir 20meq/15ml) 20 meq AD PRN PO POTASSIUM PROTOCOL 08/26/25 08:30 09/25/25 08:29 Promethazine HCl (Phenergan) 25 mg AD PRN IM NAUSEA/VOMITING 08/28/25 19:30 08/28/25 21:21 DC Sodium Chloride 1,000 ml @ 100 mls/hr Q10H IV 08/24/25 05:00 08/28/25 03:21 DC 08/27/25 20:32 100 MLS/HR Thiamine HCl (Vitamin B-1) 100 mg DAILY PO 08/25/25 09:00 09/24/25 08:59 08/29/25 08:26 100 MG DIAGNOSTICS / RADIOLOGY: [ ] ASSESSMENT: Acute cholecystitis POA Gall bladder dyskinesia with EF of 29%, POA Acute pancreatitis, POA Hypertension POA Anxiety disorder POA Obesity POA Acute normocytic normochromic anemia POA Acute thrombocytopenia POA Alcoholism POA PLAN: Acute cholecystitis, POA: Biliary dyskinesia EF 29%, POA Acute pancreatitis, POA * Lap cholecystectomy done yesterday * We will order incentive spirometry to prevent postoperative atelectasis or pneumonia * On presentation labs show T. bilirubin 2.0, D. bilirubin- 1.2, AST-138, ALT- 64, ALP-297, Lipase -109. Vitals temperature 98.2, heart rate 86, blood pressure 140/91 saturation 98% on room air. * Abdominal US was ordered, results show mildly hydropic gallbladder with no gallstone was evident. No pericholecystic fluid was evident. No definite acute cholecystitis was evident. * HIDA scan was ordered, results show gall bladder dyskinesia with EF of 29%. * MRCP was ordered, results show Hepatomegaly with diffuse hepatic steatosis and minimal perihepatic fluid. Peripancreatic and retroperitoneal inflammatory fluid and fat stranding adjacent to the pancreatic head and uncinate process, suspicious for acute pancreatitis. Mild gallbladder wall thickening with minimal pericholecystic inflammatory change and layering sludge without gallstone. Splenomegaly with minimal perisplenic fluid. * Continue Zosyn 3.375 g IV q.8h * Manage pain with Dilaudid or Percocet. * Continue Ondansetron 4mg for nausea and vomiting. * Gastroenterology and surgery on board, will follow their recommendations. * We will monitor LFT, CBC and BMP. Alcoholism POA Initiated CIWA protocol Will Monitor for signs of alcohol withdrawal Supportive measures: We will replace electrolytes as needed per protocol. Started on famotidine 20 mg IV daily for GI prophylaxis. DVT prophylaxis with SCD's ATTESTATION BY PHYSICIAN I have seen and examined the patient. I reviewed the documentation, medical decision making, and treatment plan as noted by the resident physician above. I agree with the findings and plan of care. MANDA LARRY IV, MD, BHAVANI MD Aug 29, 2025 12:27
[2025-08-29 16:00] VITALS: BP 134/84; PULSE 91; RESP 20; TEMP 98
--- NOTE | 2025-08-29 17:33 | PN ---
GENERAL SURGERY PROGRESS NOTE DATE OF SERVICE: Aug 29, 2025 TIME OF SERVICE: 17:31 No new issues PROBLEM LISTS: [ ] S/p robotic cholecystectomy INTERVAL HISTORY: [ ] PHYSICAL EXAMINATION: GENERAL: [Patient is lying comfortably in bed, not in any obvious distress.] HEAD: [Normal with no signs of head trauma.] EYES: [Not pale not jaundiced afebrile to touch.] ENT: [ Normal.] NECK: [Supple,no tenderness,no lymphadenopathy,no masses,no thyromegaly ,no bruits, no JVD.] LUNGS: [Clear breath sounds bilaterally. No wheezes, rales, or rhonchi.] HEART: [Regular rate and rhythm. Normal S1 and S2, without murmurs, rub or gallop.] VASC: [No edema. Peripheral pulses normal and equal in all extremities.] ABD: [Bowel sounds present,soft, dressings in place : [Normal, no suprapubic tenderness.] LYMPH: [No lymphadenopathy noted.] EXT: [ Warm soft, non tender.] SKIN: [ No rashes or lesions.] NEURO: [ Awake Alert and oriented x3.] LABORATORY: [ ] Hematology Labs: Test 08/29/25 04:49 Range/Units White Blood Count 8.0 4.8-10.8 K/uL Red Blood Count 4.35 L 4.50-6.20 MIL/uL Hemoglobin 12.8 L 14.0-18.0 g/dL Hematocrit 38.8 L 42-54 % Mean Corpuscular Volume 89.2 79-99 fL Mean Corpuscular Hemoglobin 29.4 27.0-33.0 pg Mean Corpuscular Hemoglobin Concent 33.0 32.0-36.0 g/dL Red Cell Distribution Width 17.7 H 11.0-15.5 % Platelet Count 193 130-400 K/uL Mean Platelet Volume 9.8 7.5-10.5 fL Immature Granulocyte % (Auto) 0.5 0-1 % Neutrophils (%) (Auto) 85.6 H 40.0-77.0 % Lymphocytes (%) (Auto) 9.6 L 21.0-51.0 % Monocytes (%) (Auto) 4.0 3.0-13.0 % Eosinophils (%) (Auto) 0.0 0.0-8.0 % Basophils (%) (Auto) 0.3 0.0-5.0 % Neutrophils # (Auto) 6.8 1.8-7.7 K/uL Lymphocytes # (Auto) 0.8 L 1.0-4.8 K/uL Monocytes # (Auto) 0.3 0.1-1.0 K/uL Eosinophils # (Auto) 0.00 0.00-0.70 K/uL Basophils # (Auto) 0.02 0.00-0.20 K/uL Absolute Immature Granulocyte (auto 0.04 0-1 K/uL Nucleated Red Blood Cells 0.0 0.0-0.19 % White Cell Morphology Comment See comments Chemistry Labs: Test 08/29/25 04:49 Range/Units Sodium Level 132 L 136-145 mmol/L Potassium Level 4.4 3.5-5.1 mmol/L Chloride Level 99 L 101-111 mmol/L Carbon Dioxide Level 22 21-32 mmol/L Blood Urea Nitrogen 11 7-18 mg/dL Creatinine 0.8 0.5-1.3 mg/dL Glomerular Filtration Rate Calc 115 >90 mL/min Random Glucose 124 H 70-105 mg/dL Total Calcium 8.7 8.5-10.1 mg/dL Magnesium Level 2.00 1.80-2.40 mg/dL Total Bilirubin 4.5 H 0.2-1.0 mg/dL Aspartate Amino Transf (AST/SGOT) 216 H 10-37 U/L Alanine Aminotransferase (ALT/SGPT) 107 H 12-78 U/L Alkaline Phosphatase 251 H 50-136 U/L Total Protein 8.5 H 6.0-8.3 g/dL Albumin 2.9 L 3.5-5.0 g/dL DIAGNOSTICS / RADIOLOGY: [Copy/Paste Echos/Imaging Report here] ASSESSMENT: S/p robotic cholecystectomy PLAN: Advance diet Ambulate CAMDEN ORELLANA MD Aug 29, 2025 17:33
[2025-08-29 20:00] VITALS: BP 125/76; PULSE 91; RESP 18; TEMP 98.4
--- NOTE | 2025-08-29 21:45 | NUR ---
PATIENT PROGRESS NOTE AFTER PATIENT BATHED, AROUND 2100, PATIENT COMPLAINED OF BLEEDING FROM RIGHT LOWER LAPAROSCOPIC INCISION. DRAINAGE IDENTIFIED TO BE SEROSANGUINEOUS. INCISION PRIMARILY COVERED WITH GAUZE AND TAPE. UPON REASSESSMENT, GAUZE DRESSING WAS SATURATED WITH DRAINAGE. DRESSING WAS CHANGED AND REINFORCED WITH STERISTRIPS, GAUZE, AND TAPE.
[2025-08-30] VITALS (8 sets, daily range): BP systolic 99–130; BP diastolic 43–74; PULSE 42–100; RESP 18; TEMP 97.8–99; O2SAT 95–96
--- NOTE | 2025-08-30 04:00 | NUR ---
PATIENT PROGRESS NOTE REINFORCED DRESSING REASSESSED THROUGHOUT SHIFT. MINIMAL SEROSANGUINEOUS DRAINAGE OBSERVED ON GAUZE AT 0345.
[2025-08-30 05:03] LABS: NUCLEATED RED BLOOD CELLS 0.0 % (0.0-0.19); PLATELET COUNT (AUTO) 206.0 K/uL (130-400); RED BLOOD CELL COUNT(AUTO) 4.0 MIL/uL (4.50-6.20); RED CELL DISTRIBUTION WIDTH 17.9 % (11.0-15.5); WHITE BLOOD COUNT (AUTO) 10.1 K/uL (4.8-10.8)
[2025-08-30 05:14] LABS: CREATININE 0.9 mg/dL (0.5-1.3); GLOMERULAR FILTR. RATE CALC 111.0 mL/min (>90); GLUCOSE,RANDOM 96.0 mg/dL (70-105); SODIUM SERUM 132.0 mmol/L (136-145); UREA NITROGEN, BLOOD 16.0 mg/dL (7-18)
--- NOTE | 2025-08-30 06:20 | NUR ---
PATIENT PROGRESS NOTE UPON ADMINISTRATION OF POTASSIUM SUPPLEMENT, PATIENT'S LEFT INCISION WAS DISCOVERED TO BE PRODUCING MINIMAL SEROSANGUINEOUS DRAINAGE. GAUZE AND TAPE APPLIED.
--- NOTE | 2025-08-30 15:58 | PN ---
[facility] PROGRESS NOTE Date of Service: Aug 30, 2025 Time of Service: 15:42 HISTORY OF PRESENT ILLNESS: This is a 39-year-old male with past medical history of anxiety disorder and hypertension who presents to the ED for complaints of right upper quadrant pain associated with nausea vomiting does last Saturday.Patient states pain is on and off and he has been taking Naproxen and Ibuprofen but pain got worsened today.Patient reports abdominal pain came back after eating 2 pizza bites.Patient reported having 3 episodes of nonbloody vomiting and patient also reports having fever yesterday at home with a temperature of 1:00 pm.patient reports he has similar episodes in the past last 03/21/2025. Seen and examined patient in the ER awake,alert and coherent,appears uncomfortable,7/10 pain level.Patient denies chest pain,palpitation ,shortness of breath,and diarrhea. Latest vital signs temperature 98.2, heart rate 86, blood pressure 140/91 saturation 98% on room air. Abdominal ultrasound result revealed mildly hydropic gallbladder. No gallstone is evident at this time pericholecystic fluid is evident. No definite acute cholecystitis is evident at this time commit HIDA scan for further evaluation. Hepatomegaly and hepatic steatosis. Labs: Hemoglobin 11, hematocrit 35, platelet count 113. Sodium 134, chloride 100, total calcium 7.8, total bilirubin 2.0, direct bilirubin 1.2, AST 138, alkaline phosphatase 297, albumin three pace 72. While in the ER patient received morphine 4 mg IV, Zofran 4 mg IV admit patient for further medical management. SUBJECTIVE: 08/24/25: Patient was seen and evaluated in ED 50. Patient was in alert, awake and oriented. Patient appeared to be in distress due to pain in right upper quadrant of abdomen and epigastrium. Patient reports the pain increases with eating food. Patient reports having chills but denies pain. Patient reports nausea associated with pain. Patient reports he had diarrhea today in the morning but no prior episode of change in bowel movement. Patient denies any burning micturition, change in urinary frequency or dysphagia. Pertinent labs- T. bilirubin 2.0, D. bilirubin- 1.2, AST-138, ALT-64, ALP-297, Lipase -72. 08/25/25: Patient was seen and evaluated in 316. Patient reports the pain has gotten better compared to prior day. Patient reports having lower abdominal discomfort around the bladder during the night, but doesn't have it anymore when he woke up. Patient denies any fever, chills, nausea, vomiting and burning sensation. Patient denies any diarrhea or constipation. Pertinent labs- T. bilirubin 4.7, AST-152, ALT-64, ALP-294. 08/26/25: Patient was seen and evaluated in 316. Patient reports the pain has gotten better than previous two days. Patient denies any lower abdominal discomfort today. patient reports that he passed semi solid stool once today but reports it is hasnt happened again. Patient denies any fever, chills, nausea, vomiting and burning sensation. Pertinent labs- T. bilirubin 5.3, AST-167, ALT- 70, ALP-285. 08/27/25: Patient was seen and evaluated in 316. Patient reports that his pain is far better today than admission day, and is localized more on the right upper quadrant and no epigastric pain. Patient reports that he is passing hard stools but passed a single episode of semisolid stool again. Patient denies any fever, chills, nausea, vomiting and burning sensation. Pertinent labs- T. bilirubin 4.3, AST-196, ALT-75, ALP-275. 08/28/25: Patient was evaluated bedside this morning. No overnight event. He was complaining of moderate abdominal pain in the right upper quadrant. He is hemodynamically stable with the labs remarkable for total bilirubin 4.6, AST 259, ALT 113, ALP 300 and lipase 109. For acute pancreatitis patient has been conservatively managed. For acute cholecystitis with biliary dyskinesia the patient is scheduled for lap cholecystectomy today. He is being treated with Zosyn. Surgery and GI on the board. Rest of the plan as discussed below. 08/29/25: Patient was evaluated bedside this morning. No overnight event. He was complaining of Severe abdominal pain 9/10 in the right upper quadrant relieved with morphine and dilaudid. He had lap cholecystectomy done yesterday and is hemodynamically stable. He reports he is walking well, has been passing a lot of gas,burping a lot and had a bowel movement this morning. We will order incentive spirometry as he does not have one today. He is currently on Rocephin and Zosyn. He reports slight tremors and anxiety. He is on CICO protocol. Surgery and GI on the board. We will try to discharge tomorrow upon surgery recommendations. 08/30/25: Patient was seen and evaluated bedside in 316. Patient has no overnight events. Patient mentioned that after passing flatulence last night he felt relieved. Patient reports of abdominal discomfort and pain along the demetria of the procedure but denies any right quadrant abdominal pain. Patient d enies any fever, chills. His LFT were still elevated T. bilirubin 4.5, AST-216, ALT-107, ALP-251. Will follow for recommendations from surgery for planning of discharge. REVIEW OF SYSTEMS CONSTITUTIONAL: Denies fevers, chills, or night sweats. No unintentional weight loss reported. NEUROLOGICAL: Denies headache, amaurosis fugax, motor weakness, sensory deficit, vertigo/spinning sensation, gait abnormalities, or tremors. ENT: No hearing loss, otalgia, otorrhea, rhinitis, rhinorrhea, hoarseness, or sore throat. CARDIOVASCULAR: Denies any exertional angina, dyspnea on exertion, orthopnea, paroxysmal nocturnal dyspnea, palpitations, life-threatening arrhythmias, claudication. PULMONARY: Denies any shortness of breath, cough, phlegm/sputum, hemoptysis, pleuritic chest pain. SLEEP: Denies morning headaches, daytime somnolence or napping. Denies difficulty falling asleep, staying asleep, waking from sleep. Denies knowledge of snoring. GASTROINTESTINAL: Denies right upper quadrant abdominal pain nausea and vomiting Denies any type of dysphagia to either liquids or solids. Deniespyrosis, early satiety, diarrhea, constipation, or changes in stool consistency or caliber. Denies coffee-ground emesis, hematemesis, hematochezia, or melanotic stools. GENITOURINARY: Denies frequency, urgency, nocturia, hematuria or incontinence (Storage/Irritative symptoms.) Low urinary stream, straining to void, urinary intermittency or hesitancy, splitting of the voiding stream, terminal dribbling. ENDOCRINOLOGIC: Denies polyuria, polydipsia, polyphagia or heat/cold intolerances. HEMATOLOGIC: Denies thrombophilia/previous clots, or coagulopathy/bleeding disorders. ONCOLOGIC: Denies personal history of malignancy. DERMATOLOGIC: Denies rashes or pruritus. PSYCHIATRIC: Denies any suicidal or homicidal ideation. Denies hallucinations. PHYSICAL EXAM GENERAL APPEARANCE: The patient is awake, alert, and oriented, in no acute cardiopulmonary distress. NEUROLOGICAL: Cranial nerves II-XII grossly intact. Motor is 5/5 in bilateral upper and lower extremities proximal to distal. No sensory deficits. HEENT: Face is symmetric. Pupils are equal and reactive. Extraocular movements are intact. NECK: Supple. No JVD. No thyromegaly. No submental, submandibular, pre-/postauricular, occipital or supraclavicular lymphadenopathy. CHEST: Normal chest expansion. No Telemetry. LUNGS: Absence of any rales, rhonchi or any wheezing. CARDIOVASCULAR: Regular. S1 and S2 normal. No appreciable rubs, murmurs or gallops. ABDOMEN: Tenderness around right upper quadrant palpation and epigastrium.There is no voluntary guarding or rebound tenderness. : Deferred. No Hamilton. EXTREMITIES: Non-edematous and not cyanotic. No clubbing. Good capillary refill. SKIN: No skin breakdown. Vital Signs (last 8hr) Date Time Temp Pulse Resp B/P (MAP) Pulse Ox O2 Delivery O2 Flow Rate FiO2 08/30/25 12:00 98.1 77 18 103/55 98 Room Air 08/30/25 08:00 98.2 70 18 113/70 95 Room Air LABS: Laboratory: Test 08/30/25 04:47 08/29/25 04:49 Range/Units White Blood Count 10.1 # 4.8-10.8 K/uL Red Blood Count 4.00 L 4.50-6.20 MIL/uL Hemoglobin 11.6 L 14.0-18.0 g/dL Hematocrit 34.7 L 42-54 % Mean Corpuscular Volume 86.8 79-99 fL Mean Corpuscular Hemoglobin 29.0 27.0-33.0 pg Mean Corpuscular Hemoglobin Concent 33.4 32.0-36.0 g/dL Red Cell Distribution Width 17.9 H 11.0-15.5 % Platelet Count 206 130-400 K/uL Mean Platelet Volume 9.7 7.5-10.5 fL Nucleated Red Blood Cells 0.0 0.0-0.19 % Sodium Level 132 L 136-145 mmol/L Potassium Level 3.6 3.5-5.1 mmol/L Chloride Level 99 L 101-111 mmol/L Carbon Dioxide Level 25 21-32 mmol/L Blood Urea Nitrogen 16 7-18 mg/dL Creatinine 0.9 0.5-1.3 mg/dL Glomerular Filtration Rate Calc 111 >90 mL/min Random Glucose 96 70-105 mg/dL Total Calcium 8.4 L 8.5-10.1 mg/dL Magnesium Level 2.10 1.80-2.40 mg/dL Immature Granulocyte % (Auto) 0.5 0-1 % Neutrophils (%) (Auto) 85.6 H 40.0-77.0 % Lymphocytes (%) (Auto) 9.6 L 21.0-51.0 % Monocytes (%) (Auto) 4.0 3.0-13.0 % Eosinophils (%) (Auto) 0.0 0.0-8.0 % Basophils (%) (Auto) 0.3 0.0-5.0 % Neutrophils # (Auto) 6.8 1.8-7.7 K/uL Lymphocytes # (Auto) 0.8 L 1.0-4.8 K/uL Monocytes # (Auto) 0.3 0.1-1.0 K/uL Eosinophils # (Auto) 0.00 0.00-0.70 K/uL Basophils # (Auto) 0.02 0.00-0.20 K/uL Absolute Immature Granulocyte (auto 0.04 0-1 K/uL White Cell Morphology Comment See comments Total Bilirubin 4.5 H 0.2-1.0 mg/dL Aspartate Amino Transf (AST/SGOT) 216 H 10-37 U/L Alanine Aminotransferase (ALT/SGPT) 107 H 12-78 U/L Alkaline Phosphatase 251 H 50-136 U/L Total Protein 8.5 H 6.0-8.3 g/dL Albumin 2.9 L 3.5-5.0 g/dL Current Medications Medications (Trade) Dose Ordered Sig/Jarad Route PRN Reason Start Time Stop Time Status Last Admin Dose Admin Ceftriaxone Sodium (ROCEphine 1G INJ) 1 gm Q24H IV 08/24/25 05:00 08/24/25 20:18 DC 08/24/25 05:35 1 GM Famotidine (Pepcid 20mg Vial) 20 mg DAILY IV 08/24/25 09:00 09/23/25 08:59 08/30/25 07:44 20 MG Fentanyl Citrate (FENTanyl CITRate PF 50 MCG/ 1 ML 2ML VIAL) 25 mcg Q5MIN PRN IVP PAIN LEVEL 7 TO 10 08/28/25 19:30 08/28/25 21:21 DC 08/28/25 21:09 25 MCG Hydromorphone HCl (DiLAUDid 1MG INJ) 1 mg Q3H3 PRN IVP SEVERE PAIN (7-10) 08/28/25 23:00 08/30/25 10:21 DC 08/29/25 22:18 1 MG Hydroxyzine HCl (ATArax 25MG TAB) 25 mg TID PRN PO ANXIETY 08/24/25 14:30 09/23/25 14:29 08/27/25 22:36 25 MG Ketorolac Tromethamine (toRADol) 15 mg Q6H PRN IV MODERATE PAIN (4-6) 08/24/25 06:30 08/29/25 06:29 DC 08/27/25 20:51 15 MG Ketorolac Tromethamine (toRADol) 30 mg AD PRN IV PAIN LEVEL 1 TO 3 08/28/25 19:30 08/28/25 21:21 DC Losartan Potassium (CozAAR 100MG TAB) 100 mg DAILY PO 08/26/25 09:00 09/25/25 08:59 08/30/25 07:44 100 MG Metoclopramide HCl (regLAN 10MG IV) 10 mg AD PRN IVP NAUSEA/VOMITING 08/28/25 19:30 08/28/25 21:21 DC Metronidazole/ Sodium Chloride 100 ml @ 100 mls/hr Q8H IV 08/24/25 05:00 08/24/25 20:18 DC 08/24/25 14:03 100 MLS/HR Morphine Sulfate (morPHINE 2MG SYG) 2 mg AD PRN IVP PAIN LEVEL 4 TO 6 08/28/25 19:30 08/28/25 21:21 DC Morphine Sulfate (morPHINE 2MG SYG) 2 mg Q4H PRN IV SEVERE PAIN (7-10) 08/24/25 05:00 08/28/25 22:56 DC 08/28/25 16:16 2 MG Naloxone HCl (NARcan 0.4mg/1 mL) 0.1 mg AD PRN IVP RESPIRATORY SYMPTOMS 08/28/25 19:30 08/28/25 21:21 DC Ondansetron HCl (zoFRAN 4MG INJ) 4 mg AD PRN IVP NAUSEA/VOMITING 08/28/25 19:30 08/28/25 21:21 DC Ondansetron HCl (zoFRAN 4MG INJ) 4 mg Q6H PRN IV NAUSEA/VOMITING 08/24/25 05:00 09/23/25 04:59 08/29/25 22:18 4 MG Oxycodone/ Acetaminophen (perCOCET) 1 tab Q4H PRN PO SEVERE PAIN (7-10) 08/28/25 23:00 09/04/25 22:59 08/30/25 07:44 1 TAB Pharmacy Profile Note (Lace Assessment) 1 each AD MISC 08/28/25 20:00 08/28/25 19:55 DC Pharmacy Profile Note (Pharmacy Communication) 1 each PROTOCOL PRN MISC ETOH Withdrawal Score changes 08/24/25 13:00 08/24/25 20:51 DC Piperacillin Sod/ Tazobactam Sod (Zosyn 3.375gm+NS 50ml) 3.375 gm Q8H IVPB 08/24/25 20:30 09/03/25 20:29 08/30/25 12:51 3.375 GM Potassium Chloride 100 ml @ 100 mls/hr AD PRN IV POTASSIUM PROTOCOL 08/26/25 08:30 09/25/25 08:29 Potassium Chloride (K-Dur/Klor-Con 20meq) 20 meq AD PRN PO POTASSIUM PROTOCOL 08/26/25 08:30 09/25/25 08:29 08/30/25 06:09 20 MEQ Potassium Chloride (KCl 10% Elixir 20meq/15ml) 20 meq AD PRN PO POTASSIUM PROTOCOL 08/26/25 08:30 09/25/25 08:29 Promethazine HCl (Phenergan) 25 mg AD PRN IM NAUSEA/VOMITING 08/28/25 19:30 08/28/25 21:21 DC Sodium Chloride 1,000 ml @ 100 mls/hr Q10H IV 08/24/25 05:00 08/28/25 03:21 DC 08/27/25 20:32 100 MLS/HR Thiamine HCl (Vitamin B-1) 100 mg DAILY PO 08/25/25 09:00 09/24/25 08:59 08/30/25 07:44 100 MG DIAGNOSTICS / RADIOLOGY: [ ] ASSESSMENT: Acute cholecystitis POA Gall bladder dyskinesia with EF of 29%, POA Acute pancreatitis, POA Hypertension POA Anxiety disorder POA Obesity POA Acute normocytic normochromic anemia POA Acute thrombocytopenia POA Alcoholism POA PLAN: Acute cholecystitis, POA: Biliary dyskinesia EF 29%, POA Acute pancreatitis, POA * Lap cholecystectomy done on 08/28/25. Today is cholecystectomy status post day 2. * We will order incentive spirometry to prevent postoperative atelectasis or pneumonia * On presentation labs show T. bilirubin 2.0, D. bilirubin- 1.2, AST-138, ALT- 64, ALP-297, Lipase -109. Vitals temperature 98.2, heart rate 86, blood pressure 140/91 saturation 98% on room air. * Abdominal US was ordered, results show mildly hydropic gallbladder with no gallstone was evident. No pericholecystic fluid was evident. No definite acute cholecystitis was evident. * HIDA scan was ordered, results show gall bladder dyskinesia with EF of 29%. * MRCP was ordered, results show Hepatomegaly with diffuse hepatic steatosis and minimal perihepatic fluid. Peripancreatic and retroperitoneal inflammatory fluid and fat stranding adjacent to the pancreatic head and uncinate process, suspicious for acute pancreatitis. Mild gallbladder wall thickening with minimal pericholecystic inflammatory change and layering sludge without gallstone. Splenomegaly with minimal perisplenic fluid. * Continue Zosyn 3.375 g IV q.8h * Manage pain with Dilaudid or Percocet. * Continue Ondansetron 4mg for nausea and vomiting. * Gastroenterology and surgery on board, will follow their recommendations. * We will monitor LFT, CBC and BMP. Alcoholism POA Initiated CIWA protocol Will Monitor for signs of alcohol withdrawal Supportive measures: We will replace electrolytes as needed per protocol. Started on famotidine 20 mg IV daily for GI prophylaxis. DVT prophylaxis with SCD's ATTESTATION BY PHYSICIAN I have seen and examined the patient. I reviewed the documentation, medical decision making, and treatment plan as noted by the resident physician above. I agree with the findings and plan of care. CAMILLA GALVEZ MD, SHAJI MD Aug 30, 2025 15:58
[2025-08-31] VITALS (7 sets, daily range): BP systolic 96–116; BP diastolic 59–70; PULSE 80–94; RESP 16–18; TEMP 97.5–98.7; O2SAT 95
[2025-08-31 06:30] LABS: IMMATURE GRANULOCYTE ABSOLUTE 0.06 K/uL (0-1); NUCLEATED RED BLOOD CELLS 0.0 % (0.0-0.19); PLATELET COUNT (AUTO) 212 K/uL (130-400); RED BLOOD CELL COUNT(AUTO) 4.25 MIL/uL (4.50-6.20); RED CELL DISTRIBUTION WIDTH 18.3 % (11.0-15.5); WHITE BLOOD COUNT (AUTO) 9.4 K/uL (4.8-10.8)
[2025-08-31 06:44] LABS: ASPARTATE AMINOTRANSFERASE 165.0 U/L (10-37); CREATININE 1.7 mg/dL (0.5-1.3); GLOMERULAR FILTR. RATE CALC 52.0 mL/min (>90); GLUCOSE,RANDOM 86.0 mg/dL (70-105); SODIUM SERUM 133.0 mmol/L (136-145); TOTAL PROTEIN, SERUM 7.2 g/dL (6.0-8.3); UREA NITROGEN, BLOOD 27.0 mg/dL (7-18)
[2025-08-31] MEDS: 0.9% NACL 500ML IV.SOLN 500 ML IV ONE (10:00)
--- NOTE | 2025-08-31 11:10 | NUR ---
INCISION DR. PEOPLES MADE AWARE OF SANGUINEOUS DRAINAGE TO RIGHT ABDOMEN INCISION. ACKNOWLEDGED INFORMATION. STATES TO DRESS WITH 4X4 AND APPLY TAPE. SIGNED OFF. STATES PRESCRIPTION IN CHART AND TO FOLLOW UP IN 3 WEEKS. NO FURTHER ORDERS GIVEN AT THIS TIME.
[2025-08-31] MEDS: 0.9%NACL 1000ML 1,000 ML IV ONE (11:14)
[2025-08-31 12:16] LABS: CREATININE 1.8 mg/dL (0.5-1.3); GLOMERULAR FILTR. RATE CALC 48.0 mL/min (>90); GLUCOSE,RANDOM 91.0 mg/dL (70-105); SODIUM SERUM 133.0 mmol/L (136-145); UREA NITROGEN, BLOOD 30.0 mg/dL (7-18)
--- NOTE | 2025-08-31 14:28 | PN ---
GASTROENTEROLOGY PROGRESS NOTE Date of Visit: Aug 31, 2025 Time of Visit: 14:28 Events / Notes: No acute events overnight. HIDA scan biliary dyskinesia however MRCP revealing hepatomegaly with fat stranding adjacent to the pancreatic head concerning for acute pancreatitis. Mild gallbladder wall thickening with minimal Chris cholecystic inflammatory change and layering sludge. Splenomegaly also seen. LFTs did trend down today. Review of Systems: CONSTITUTIONAL: No malaise or change in sensation of wellbeing. ENMT: No rhinorrhea, otorrhea, sinus pain, ear ache. CARDIOVASCULAR: No angina, palpitations, orthopnea or paroxysmal dyspnea. RESPIRATORY: No SOB. GASTROINTESTINAL: No abdominal pain, nausea, vomiting, diarrhea, hematemesis, melena or change in the patient's habitual bowel movements consistency/number. GENITOURINARY: No dysuria, hematuria or change in bladder continence. MUSCULOSKELETAL: No new muscle pain or decrease in muscular strength. No new joint swelling, redness or tenderness. SKIN: No new rash. Physical Exam: GEN: Awake, alert, oriented in person, time and place, and in no acute distress. HEENT: No sinus tenderness. Tympanic membranes were not examined. No rhinorrhea. Oral pharyngeal mucosa is pink, moist and within normal limits. Neck is supple with no cervical lymphadenopathy, thyromegaly or JVD. CHEST: Inspection, palpation and percussion of the chest were unremarkable. Lung auscultation revealed normal breath sounds bilaterally. CARDIAC: PMI is within normal limits. Heart sounds are regular. Normal S1, S2. No gallop or murmur. ABD: Soft, non-tender and not distended. No peritoneal signs on palpation. No organomegaly. Normal bowel sounds. EXT: No cyanosis or clubbing. No edema. SKIN: Intact. No rashes. JOINTS: No evidence of synovitis or acute arthritis. NEURO: Alert and oriented to name, place and person. Cranial nerve examination is unremarkable. No focal motor deficits. Normal speech. Gait is normal. Strength is normal. Vital Signs (last 8hr) Date Time Temp Pulse Resp B/P (MAP) Pulse Ox O2 Delivery O2 Flow Rate FiO2 08/31/25 12:05 98.1 80 16 102/59 96 Room Air 08/31/25 08:21 Room Air* 0 21 08/31/25 08:01 98.4 94 18 104/61 93 Room Air Laboratory: [ ] Laboratory: Test 08/31/25 11:55 08/31/25 06:15 08/30/25 04:47 Range/Units Sodium Level 133 L 136-145 mmol/L Potassium Level 3.8 3.5-5.1 mmol/L Chloride Level 101 101-111 mmol/L Carbon Dioxide Level 26 21-32 mmol/L Blood Urea Nitrogen 30 H 7-18 mg/dL Creatinine 1.8 H 0.5-1.3 mg/dL Glomerular Filtration Rate Calc 48 >90 mL/min Random Glucose 91 70-105 mg/dL Total Calcium 8.2 L 8.5-10.1 mg/dL White Blood Count 9.4 4.8-10.8 K/uL Red Blood Count 4.25 L 4.50-6.20 MIL/uL Hemoglobin 12.3 L 14.0-18.0 g/dL Hematocrit 37.8 L 42-54 % Mean Corpuscular Volume 88.9 79-99 fL Mean Corpuscular Hemoglobin 28.9 27.0-33.0 pg Mean Corpuscular Hemoglobin Concent 32.5 32.0-36.0 g/dL Red Cell Distribution Width 18.3 H 11.0-15.5 % Platelet Count 212 130-400 K/uL Mean Platelet Volume 10.2 7.5-10.5 fL Immature Granulocyte % (Auto) 0.6 0-1 % Neutrophils (%) (Auto) 58.1 40.0-77.0 % Lymphocytes (%) (Auto) 20.3 L 21.0-51.0 % Monocytes (%) (Auto) 18.5 H 3.0-13.0 % Eosinophils (%) (Auto) 1.3 0.0-8.0 % Basophils (%) (Auto) 1.2 0.0-5.0 % Neutrophils # (Auto) 5.5 1.8-7.7 K/uL Lymphocytes # (Auto) 1.9 1.0-4.8 K/uL Monocytes # (Auto) 1.7 H 0.1-1.0 K/uL Eosinophils # (Auto) 0.12 0.00-0.70 K/uL Basophils # (Auto) 0.11 0.00-0.20 K/uL Absolute Immature Granulocyte (auto 0.06 0-1 K/uL Nucleated Red Blood Cells 0.0 0.0-0.19 % Red Blood Cell Morphology See comments Total Bilirubin 4.3 H 0.2-1.0 mg/dL Aspartate Amino Transf (AST/SGOT) 165 H 10-37 U/L Alanine Aminotransferase (ALT/SGPT) 101 H 12-78 U/L Alkaline Phosphatase 226 H 50-136 U/L Total Protein 7.2 6.0-8.3 g/dL Albumin 2.6 L 3.5-5.0 g/dL Magnesium Level 2.10 1.80-2.40 mg/dL Current Medications Medications (Trade) Dose Ordered Sig/Jarad Route PRN Reason Start Time Stop Time Status Last Admin Dose Admin Ceftriaxone Sodium (ROCEphine 1G INJ) 1 gm Q24H IV 08/24/25 05:00 08/24/25 20:18 DC 08/24/25 05:35 1 GM Docusate Sodium (COLace 100MG CAP) 100 mg BID PO 08/31/25 13:40 09/30/25 13:39 08/31/25 13:44 100 MG Famotidine (Pepcid 20mg Vial) 20 mg DAILY IV 08/24/25 09:00 09/23/25 08:59 08/31/25 08:21 20 MG Fentanyl Citrate (FENTanyl CITRate PF 50 MCG/ 1 ML 2ML VIAL) 25 mcg Q5MIN PRN IVP PAIN LEVEL 7 TO 10 08/28/25 19:30 08/28/25 21:21 DC 08/28/25 21:09 25 MCG Hydromorphone HCl (DiLAUDid 1MG INJ) 1 mg Q3H3 PRN IVP SEVERE PAIN (7-10) 08/28/25 23:00 08/30/25 10:21 DC 08/29/25 22:18 1 MG Hydroxyzine HCl (ATArax 25MG TAB) 25 mg TID PRN PO ANXIETY 08/24/25 14:30 09/23/25 14:29 08/27/25 22:36 25 MG Ketorolac Tromethamine (toRADol) 15 mg Q6H PRN IV MODERATE PAIN (4-6) 08/24/25 06:30 08/29/25 06:29 DC 08/27/25 20:51 15 MG Ketorolac Tromethamine (toRADol) 30 mg AD PRN IV PAIN LEVEL 1 TO 3 08/28/25 19:30 08/28/25 21:21 DC Losartan Potassium (CozAAR 100MG TAB) 100 mg DAILY PO 08/26/25 09:00 08/31/25 09:32 DC 08/30/25 07:44 100 MG Metoclopramide HCl (regLAN 10MG IV) 10 mg AD PRN IVP NAUSEA/VOMITING 08/28/25 19:30 08/28/25 21:21 DC Metronidazole/ Sodium Chloride 100 ml @ 100 mls/hr Q8H IV 08/24/25 05:00 08/24/25 20:18 DC 08/24/25 14:03 100 MLS/HR Morphine Sulfate (morPHINE 2MG SYG) 2 mg AD PRN IVP PAIN LEVEL 4 TO 6 08/28/25 19:30 08/28/25 21:21 DC Morphine Sulfate (morPHINE 2MG SYG) 2 mg Q4H PRN IV SEVERE PAIN (7-10) 08/24/25 05:00 08/28/25 22:56 DC 08/28/25 16:16 2 MG Naloxone HCl (NARcan 0.4mg/1 mL) 0.1 mg AD PRN IVP RESPIRATORY SYMPTOMS 08/28/25 19:30 08/28/25 21:21 DC Ondansetron HCl (zoFRAN 4MG INJ) 4 mg AD PRN IVP NAUSEA/VOMITING 08/28/25 19:30 08/28/25 21:21 DC Ondansetron HCl (zoFRAN 4MG INJ) 4 mg Q6H PRN IV NAUSEA/VOMITING 08/24/25 05:00 09/23/25 04:59 08/29/25 22:18 4 MG Oxycodone/ Acetaminophen (perCOCET) 1 tab Q4H PRN PO SEVERE PAIN (7-10) 08/28/25 23:00 09/04/25 22:59 08/31/25 13:46 1 TAB Pharmacy Profile Note (Lace Assessment) 1 each AD MISC 08/28/25 20:00 08/28/25 19:55 DC Pharmacy Profile Note (Pharmacy Communication) 1 each PROTOCOL PRN MISC ETOH Withdrawal Score changes 08/24/25 13:00 08/24/25 20:51 DC Piperacillin Sod/ Tazobactam Sod (Zosyn 3.375gm+NS 50ml) 3.375 gm Q8H IVPB 08/24/25 20:30 09/03/25 20:29 08/31/25 12:07 3.375 GM Potassium Chloride 100 ml @ 100 mls/hr AD PRN IV POTASSIUM PROTOCOL 08/26/25 08:30 09/25/25 08:29 Potassium Chloride (K-Dur/Klor-Con 20meq) 20 meq AD PRN PO POTASSIUM PROTOCOL 08/26/25 08:30 09/25/25 08:29 08/30/25 06:09 20 MEQ Potassium Chloride (KCl 10% Elixir 20meq/15ml) 20 meq AD PRN PO POTASSIUM PROTOCOL 08/26/25 08:30 09/25/25 08:29 Promethazine HCl (Phenergan) 25 mg AD PRN IM NAUSEA/VOMITING 08/28/25 19:30 08/28/25 21:21 DC Sodium Chloride 1,000 ml @ 100 mls/hr Q10H IV 08/24/25 05:00 08/28/25 03:21 DC 08/27/25 20:32 100 MLS/HR Thiamine HCl (Vitamin B-1) 100 mg DAILY PO 08/25/25 09:00 09/24/25 08:59 08/31/25 08:21 100 MG Diagnostics / Radiology: [COPY/PASTE HERE IF NO REPORTS PLEASE DELETE SECTION] Assessment: Abnormal LFTs Thrombocytopenia, concerning for liver disease Abdominal pain N/V Alcohol use Plan: ERCP not warranted Thrombocytopenia and abnormal LFTs concerning for liver disease in a patient with hx alcohol abuse Trend LFTs Continue GI prophylaxis Avoid NSAIDs Antireflux measures Monitor H&H and transfuse as needed Call with questions, concerns or change in clinical status Patient to follow-up at clinic post discharge Thank you for this consult OSEAS [employer] Aug 31, 2025 14:28
--- NOTE | 2025-08-31 14:30 | NUR ---
[facility] Consult: Patient assessed by wound healing team. S/p sx with incisions closed with demetria with large serosanguineous drainage to RLQ incision. Assessment and recommendations provided to primary nurse to continue with dry dressings daily and as needed. Education provided. Wound care done.
--- NOTE | 2025-08-31 16:05 | PN ---
[facility] PROGRESS NOTE Date of Service: Aug 31, 2025 Time of Service: 15:42 HISTORY OF PRESENT ILLNESS: This is a 39-year-old male with past medical history of anxiety disorder and hypertension who presents to the ED for complaints of right upper quadrant pain associated with nausea vomiting does last Saturday.Patient states pain is on and off and he has been taking Naproxen and Ibuprofen but pain got worsened today.Patient reports abdominal pain came back after eating 2 pizza bites.Patient reported having 3 episodes of nonbloody vomiting and patient also reports having fever yesterday at home with a temperature of 1:00 pm.patient reports he has similar episodes in the past last 03/21/2025. Seen and examined patient in the ER awake,alert and coherent,appears uncomfortable,7/10 pain level.Patient denies chest pain,palpitation ,shortness of breath,and diarrhea. Latest vital signs temperature 98.2, heart rate 86, blood pressure 140/91 saturation 98% on room air. Abdominal ultrasound result revealed mildly hydropic gallbladder. No gallstone is evident at this time pericholecystic fluid is evident. No definite acute cholecystitis is evident at this time commit HIDA scan for further evaluation. Hepatomegaly and hepatic steatosis. Labs: Hemoglobin 11, hematocrit 35, platelet count 113. Sodium 134, chloride 100, total calcium 7.8, total bilirubin 2.0, direct bilirubin 1.2, AST 138, alkaline phosphatase 297, albumin three pace 72. While in the ER patient received morphine 4 mg IV, Zofran 4 mg IV admit patient for further medical management. SUBJECTIVE: 08/24/25: Patient was seen and evaluated in ED 50. Patient was in alert, awake and oriented. Patient appeared to be in distress due to pain in right upper quadrant of abdomen and epigastrium. Patient reports the pain increases with eating food. Patient reports having chills but denies pain. Patient reports nausea associated with pain. Patient reports he had diarrhea today in the morning but no prior episode of change in bowel movement. Patient denies any burning micturition, change in urinary frequency or dysphagia. Pertinent labs- T. bilirubin 2.0, D. bilirubin- 1.2, AST-138, ALT-64, ALP-297, Lipase -72. 08/25/25: Patient was seen and evaluated in 316. Patient reports the pain has gotten better compared to prior day. Patient reports having lower abdominal discomfort around the bladder during the night, but doesn't have it anymore when he woke up. Patient denies any fever, chills, nausea, vomiting and burning sensation. Patient denies any diarrhea or constipation. Pertinent labs- T. bilirubin 4.7, AST-152, ALT-64, ALP-294. 08/26/25: Patient was seen and evaluated in 316. Patient reports the pain has gotten better than previous two days. Patient denies any lower abdominal discomfort today. patient reports that he passed semi solid stool once today but reports it is hasnt happened again. Patient denies any fever, chills, nausea, vomiting and burning sensation. Pertinent labs- T. bilirubin 5.3, AST-167, ALT- 70, ALP-285. 08/27/25: Patient was seen and evaluated in 316. Patient reports that his pain is far better today than admission day, and is localized more on the right upper quadrant and no epigastric pain. Patient reports that he is passing hard stools but passed a single episode of semisolid stool again. Patient denies any fever, chills, nausea, vomiting and burning sensation. Pertinent labs- T. bilirubin 4.3, AST-196, ALT-75, ALP-275. 08/28/25: Patient was evaluated bedside this morning. No overnight event. He was complaining of moderate abdominal pain in the right upper quadrant. He is hemodynamically stable with the labs remarkable for total bilirubin 4.6, AST 259, ALT 113, ALP 300 and lipase 109. For acute pancreatitis patient has been conservatively managed. For acute cholecystitis with biliary dyskinesia the patient is scheduled for lap cholecystectomy today. He is being treated with Zosyn. Surgery and GI on the board. Rest of the plan as discussed below. 08/29/25: Patient was evaluated bedside this morning. No overnight event. He was complaining of Severe abdominal pain 9/10 in the right upper quadrant relieved with morphine and dilaudid. He had lap cholecystectomy done yesterday and is hemodynamically stable. He reports he is walking well, has been passing a lot of gas,burping a lot and had a bowel movement this morning. We will order incentive spirometry as he does not have one today. He is currently on Rocephin and Zosyn. He reports slight tremors and anxiety. He is on [facility] protocol. Surgery and GI on the board. We will try to discharge tomorrow upon surgery recommendations. 08/30/25: Patient was seen and evaluated bedside in 316. Patient has no overnight events. Patient mentioned that after passing flatulence last night he felt relieved. Patient reports of abdominal discomfort and pain along the demetria of the procedure but denies any right quadrant abdominal pain. Patient d enies any fever, chills. His LFT were still elevated T. bilirubin 4.5, AST-216, ALT-107, ALP-251. Will follow for recommendations from surgery for planning of discharge. 08/31/25: Patient was seen and evaluated bedside in 316. Patient complaints of generalized abdominal discomfort especially in the morning with mild to moderate bleeding from the demetria of the procedure but denies any right quadrant abdominal pain. Patient denies any fever, chills. His LFT were still elevated T. bilirubin 4.3, AST-165, ALT-101, ALP-226. RFT was increased today, creatinine- 1.7, BUN-27. Will follow for recommendations from surgery for planning of discharge. REVIEW OF SYSTEMS CONSTITUTIONAL: Denies fevers, chills, or night sweats. No unintentional weight loss reported. NEUROLOGICAL: Denies headache, amaurosis fugax, motor weakness, sensory deficit, vertigo/spinning sensation, gait abnormalities, or tremors. ENT: No hearing loss, otalgia, otorrhea, rhinitis, rhinorrhea, hoarseness, or sore throat. CARDIOVASCULAR: Denies any exertional angina, dyspnea on exertion, orthopnea, paroxysmal nocturnal dyspnea, palpitations, life-threatening arrhythmias, claudication. PULMONARY: Denies any shortness of breath, cough, phlegm/sputum, hemoptysis, pleuritic chest pain. SLEEP: Denies morning headaches, daytime somnolence or napping. Denies diffi culty falling asleep, staying asleep, waking from sleep. Denies knowledge of snoring. GASTROINTESTINAL: Denies right upper quadrant abdominal pain nausea and vomiting Denies any type of dysphagia to either liquids or solids. Deniespyrosis, early satiety, diarrhea, constipation, or changes in stool consistency or caliber. Denies coffee-ground emesis, hematemesis, hematochezia, or melanotic stools. GENITOURINARY: Denies frequency, urgency, nocturia, hematuria or incontinence (Storage/Irritative symptoms.) Low urinary stream, straining to void, urinary intermittency or hesitancy, splitting of the voiding stream, terminal dribbling. ENDOCRINOLOGIC: Denies polyuria, polydipsia, polyphagia or heat/cold intolerances. HEMATOLOGIC: Denies thrombophilia/previous clots, or coagulopathy/bleeding disorders. ONCOLOGIC: Denies personal history of malignancy. DERMATOLOGIC: Denies rashes or pruritus. PSYCHIATRIC: Denies any suicidal or homicidal ideation. Denies hallucinations. PHYSICAL EXAM GENERAL APPEARANCE: The patient is awake, alert, and oriented, in no acute cardiopulmonary distress. NEUROLOGICAL: Cranial nerves II-XII grossly intact. Motor is 5/5 in bilateral upper and lower extremities proximal to distal. No sensory deficits. HEENT: Face is symmetric. Pupils are equal and reactive. Extraocular movements are intact. NECK: Supple. No JVD. No thyromegaly. No submental, submandibular, pre- /postauricular, occipital or supraclavicular lymphadenopathy. CHEST: Normal chest expansion. No Telemetry. LUNGS: Absence of any rales, rhonchi or any wheezing. CARDIOVASCULAR: Regular. S1 and S2 normal. No appreciable rubs, murmurs or gallops. ABDOMEN: Tenderness around right upper quadrant palpation and epigastrium.There is no voluntary guarding or rebound tenderness. : Deferred. No Hamilton. EXTREMITIES: Non-edematous and not cyanotic. No clubbing. Good capillary refill. SKIN: No skin breakdown. Vital Signs (last 8hr) Date Time Temp Pulse Resp B/P (MAP) Pulse Ox O2 Delivery O2 Flow Rate FiO2 08/31/25 12:05 98.1 80 16 102/59 96 Room Air 08/31/25 08:21 Room Air* 0 21 08/31/25 08:01 98.4 94 18 104/61 93 Room Air LABS: Laboratory: Test 08/31/25 11:55 08/31/25 06:15 08/30/25 04:47 Range/Units Sodium Level 133 L 136-145 mmol/L Potassium Level 3.8 3.5-5.1 mmol/L Chloride Level 101 101-111 mmol/L Carbon Dioxide Level 26 21-32 mmol/L Blood Urea Nitrogen 30 H 7-18 mg/dL Creatinine 1.8 H 0.5-1.3 mg/dL Glomerular Filtration Rate Calc 48 >90 mL/min Random Glucose 91 70-105 mg/dL Total Calcium 8.2 L 8.5-10.1 mg/dL White Blood Count 9.4 4.8-10.8 K/uL Red Blood Count 4.25 L 4.50-6.20 MIL/uL Hemoglobin 12.3 L 14.0-18.0 g/dL Hematocrit 37.8 L 42-54 % Mean Corpuscular Volume 88.9 79-99 fL Mean Corpuscular Hemoglobin 28.9 27.0-33.0 pg Mean Corpuscular Hemoglobin Concent 32.5 32.0-36.0 g/dL Red Cell Distribution Width 18.3 H 11.0-15.5 % Platelet Count 212 130-400 K/uL Mean Platelet Volume 10.2 7.5-10.5 fL Immature Granulocyte % (Auto) 0.6 0-1 % Neutrophils (%) (Auto) 58.1 40.0-77.0 % Lymphocytes (%) (Auto) 20.3 L 21.0-51.0 % Monocytes (%) (Auto) 18.5 H 3.0-13.0 % Eosinophils (%) (Auto) 1.3 0.0-8.0 % Basophils (%) (Auto) 1.2 0.0-5.0 % Neutrophils # (Auto) 5.5 1.8-7.7 K/uL Lymphocytes # (Auto) 1.9 1.0-4.8 K/uL Monocytes # (Auto) 1.7 H 0.1-1.0 K/uL Eosinophils # (Auto) 0.12 0.00-0.70 K/uL Basophils # (Auto) 0.11 0.00-0.20 K/uL Absolute Immature Granulocyte (auto 0.06 0-1 K/uL Nucleated Red Blood Cells 0.0 0.0-0.19 % Red Blood Cell Morphology See comments Total Bilirubin 4.3 H 0.2-1.0 mg/dL Aspartate Amino Transf (AST/SGOT) 165 H 10-37 U/L Alanine Aminotransferase (ALT/SGPT) 101 H 12-78 U/L Alkaline Phosphatase 226 H 50-136 U/L Total Protein 7.2 6.0-8.3 g/dL Albumin 2.6 L 3.5-5.0 g/dL Magnesium Level 2.10 1.80-2.40 mg/dL Current Medications Medications (Trade) Dose Ordered Sig/Jarad Route PRN Reason Start Time Stop Time Status Last Admin Dose Admin Ceftriaxone Sodium (ROCEphine 1G INJ) 1 gm Q24H IV 08/24/25 05:00 08/24/25 20:18 DC 08/24/25 05:35 1 GM Docusate Sodium (COLace 100MG CAP) 100 mg BID PO 08/31/25 13:40 09/30/25 13:39 08/31/25 13:44 100 MG Famotidine (Pepcid 20mg Vial) 20 mg DAILY IV 08/24/25 09:00 09/23/25 08:59 08/31/25 08:21 20 MG Fentanyl Citrate (FENTanyl CITRate PF 50 MCG/ 1 ML 2ML VIAL) 25 mcg Q5MIN PRN IVP PAIN LEVEL 7 TO 10 08/28/25 19:30 08/28/25 21:21 DC 08/28/25 21:09 25 MCG Hydromorphone HCl (DiLAUDid 1MG INJ) 1 mg Q3H3 PRN IVP SEVERE PAIN (7-10) 08/28/25 23:00 08/30/25 10:21 DC 08/29/25 22:18 1 MG Hydroxyzine HCl (ATArax 25MG TAB) 25 mg TID PRN PO ANXIETY 08/24/25 14:30 09/23/25 14:29 08/27/25 22:36 25 MG Ketorolac Tromethamine (toRADol) 15 mg Q6H PRN IV MODERATE PAIN (4-6) 08/24/25 06:30 08/29/25 06:29 DC 08/27/25 20:51 15 MG Ketorolac Tromethamine (toRADol) 30 mg AD PRN IV PAIN LEVEL 1 TO 3 08/28/25 19:30 08/28/25 21:21 DC Losartan Potassium (CozAAR 100MG TAB) 100 mg DAILY PO 08/26/25 09:00 08/31/25 09:32 DC 08/30/25 07:44 100 MG Metoclopramide HCl (regLAN 10MG IV) 10 mg AD PRN IVP NAUSEA/VOMITING 08/28/25 19:30 08/28/25 21:21 DC Metronidazole/ Sodium Chloride 100 ml @ 100 mls/hr Q8H IV 08/24/25 05:00 08/24/25 20:18 DC 08/24/25 14:03 100 MLS/HR Morphine Sulfate (morPHINE 2MG SYG) 2 mg AD PRN IVP PAIN LEVEL 4 TO 6 08/28/25 19:30 08/28/25 21:21 DC Morphine Sulfate (morPHINE 2MG SYG) 2 mg Q4H PRN IV SEVERE PAIN (7-10) 08/24/25 05:00 08/28/25 22:56 DC 08/28/25 16:16 2 MG Naloxone HCl (NARcan 0.4mg/1 mL) 0.1 mg AD PRN IVP RESPIRATORY SYMPTOMS 08/28/25 19:30 08/28/25 21:21 DC Ondansetron HCl (zoFRAN 4MG INJ) 4 mg AD PRN IVP NAUSEA/VOMITING 08/28/25 19:30 08/28/25 21:21 DC Ondansetron HCl (zoFRAN 4MG INJ) 4 mg Q6H PRN IV NAUSEA/VOMITING 08/24/25 05:00 09/23/25 04:59 08/29/25 22:18 4 MG Oxycodone/ Acetaminophen (perCOCET) 1 tab Q4H PRN PO SEVERE PAIN (7-10) 08/28/25 23:00 09/04/25 22:59 08/31/25 13:46 1 TAB Pharmacy Profile Note (Lace Assessment) 1 each AD MISC 08/28/25 20:00 08/28/25 19:55 DC Pharmacy Profile Note (Pharmacy Communication) 1 each PROTOCOL PRN MISC ETOH Withdrawal Score changes 08/24/25 13:00 08/24/25 20:51 DC Piperacillin Sod/ Tazobactam Sod (Zosyn 3.375gm+NS 50ml) 3.375 gm Q8H IVPB 08/24/25 20:30 09/03/25 20:29 08/31/25 12:07 3.375 GM Potassium Chloride 100 ml @ 100 mls/hr AD PRN IV POTASSIUM PROTOCOL 08/26/25 08:30 09/25/25 08:29 Potassium Chloride (K-Dur/Klor-Con 20meq) 20 meq AD PRN PO POTASSIUM PROTOCOL 08/26/25 08:30 09/25/25 08:29 08/30/25 06:09 20 MEQ Potassium Chloride (KCl 10% Elixir 20meq/15ml) 20 meq AD PRN PO POTASSIUM PROTOCOL 08/26/25 08:30 09/25/25 08:29 Promethazine HCl (Phenergan) 25 mg AD PRN IM NAUSEA/VOMITING 08/28/25 19:30 08/28/25 21:21 DC Sodium Chloride 1,000 ml @ 100 mls/hr Q10H IV 08/24/25 05:00 08/28/25 03:21 DC 08/27/25 20:32 100 MLS/HR Sodium Chloride 1,000 ml @ 100 mls/hr Q10H IV 08/31/25 19:00 09/30/25 18:59 Thiamine HCl (Vitamin B-1) 100 mg DAILY PO 08/25/25 09:00 09/24/25 08:59 08/31/25 08:21 100 MG DIAGNOSTICS / RADIOLOGY: [ ] ASSESSMENT: Acute cholecystitis POA Gall bladder dyskinesia with EF of 29%, POA Acute pancreatitis, POA Hypertension POA Anxiety disorder POA Obesity POA Acute normocytic normochromic anemia POA Acute thrombocytopenia POA Alcoholism POA PLAN: Acute cholecystitis, POA: Biliary dyskinesia EF 29%, POA Acute pancreatitis, POA * Lap cholecystectomy done on 08/28/25. Today is cholecystectomy status post day 4. * We will order incentive spirometry to prevent postoperative atelectasis or pneumonia * On presentation labs show T. bilirubin 2.0, D. bilirubin- 1.2, AST-138, ALT- 64, ALP-297, Lipase -109. Vitals temperature 98.2, heart rate 86, blood pressure 140/91 saturation 98% on room air. * Abdominal US was ordered, results show mildly hydropic gallbladder with no gallstone was evident. No pericholecystic fluid was evident. No definite acute cholecystitis was evident. * HIDA scan was ordered, results show gall bladder dyskinesia with EF of 29%. * MRCP was ordered, results show Hepatomegaly with diffuse hepatic steatosis and minimal perihepatic fluid. Peripancreatic and retroperitoneal inflammatory fluid and fat stranding adjacent to the pancreatic head and uncinate process, suspicious for acute pancreatitis. Mild gallbladder wall thickening with minimal pericholecystic inflammatory change and layering sludge without gallstone. Splenomegaly with minimal perisplenic fluid. * Continue Zosyn 3.375 g IV q.8h * Manage pain with Dilaudid or Percocet. * Continue Ondansetron 4mg for nausea and vomiting. * Gastroenterology and surgery on board, will follow their recommendations. * We will monitor LFT, CBC and BMP. Acute kidney Injury: * Creatinine - 1.7, BUN - 27 on 08/31/25 * Urinalysis, Urine electrolytes was ordered, pending results * Ordered one bag of IV fluids with 0.9% Nacl 100ml @150ml/hr * will monitor with daily labs. Alcoholism POA Initiated CIWA protocol Will Monitor for signs of alcohol withdrawal Supportive measures: We will replace electrolytes as needed per protocol. Started on famotidine 20 mg IV daily for GI prophylaxis. DVT prophylaxis with SCD's ATTESTATION BY PHYSICIAN I have seen and examined the patient. I reviewed the documentation, medical decision making, and treatment plan as noted by the resident physician above. I agree with the findings and plan of care. CAMILLA GALVEZ MD, SHAJI MD Aug 31, 2025 16:05
[2025-08-31] MEDS: 0.9%NACL 1000ML 1,000 ML IV SCH (17:04)
[2025-08-31 17:48] LABS: APPEARANCE,URINE CLEAR (CLEAR); GLUCOSE, URINE (UA) NEGATIVE (NEGATIVE); LEUKOCYTE ESTERASE ,URINE NEGATIVE Leu/uL (NEGATIVE); NITRATE,URINE NEGATIVE (NEGATIVE); OCCULT BLOOD,URINE NEGATIVE (NEGATIVE)
[2025-08-31 17:49] LABS: ADD UA MICROSCOPIC NO
[2025-08-31] MEDS ORDERED: 0.9%NACL 1000ML 1,000 ML IV SCH (19:00)
[2025-09-01 00:02] VITALS: BP 105/57; PULSE 95; RESP 18; TEMP 98
[2025-09-01 04:00] VITALS: BP 106/62; PULSE 90; RESP 17; TEMP 97.9
[2025-09-01 04:04] VITALS: O2SAT 96
[2025-09-01 05:55] LABS: IMMATURE GRANULOCYTE ABSOLUTE 0.07 K/uL (0-1); NUCLEATED RED BLOOD CELLS 0.0 % (0.0-0.19); PLATELET COUNT (AUTO) 210 K/uL (130-400); RED BLOOD CELL COUNT(AUTO) 4.07 MIL/uL (4.50-6.20); RED CELL DISTRIBUTION WIDTH 18.1 % (11.0-15.5); WHITE BLOOD COUNT (AUTO) 9.2 K/uL (4.8-10.8)
[2025-09-01 06:14] LABS: ASPARTATE AMINOTRANSFERASE 143.0 U/L (10-37); CREATININE 1.0 mg/dL (0.5-1.3); GLOMERULAR FILTR. RATE CALC 98.0 mL/min (>90); GLUCOSE,RANDOM 95.0 mg/dL (70-105); SODIUM SERUM 131.0 mmol/L (136-145); TOTAL PROTEIN, SERUM 6.9 g/dL (6.0-8.3); UREA NITROGEN, BLOOD 24.0 mg/dL (7-18)
[2025-09-01 08:00] VITALS: BP 120/67; PULSE 90; RESP 18; TEMP 97.5
[2025-09-01 11:56] VITALS: BP 99/65; PULSE 86; RESP 18; TEMP 98.3
--- NOTE | 2025-09-01 14:50 | NUR ---
DISCHARGE DC'D IV. PT AWARE TO FOLLOW UP WITH ON 09/01/25 AT 3:15PM PHONE NUMBER PROVIDED. PT STATES HE DOES NOT HAVE A PCP. PT AWARE TO FOLLOW UP WITH . PHONE NUMBER PROVIDED. DRESSING DRY AND INTACT. PT DENIES PAIN AT THIS TIME. TEACHINGS GIVEN TO PT. DRESSING SUPPLIES GIVEN TO PT. PRESCRIPTIONS WRITTEN BY HANDED TO PT. ANSWERED ALL QUESTIONS. PT WAITING FOR RIDE HOME.
--- NOTE | 2025-09-01 16:19 | DS ---
Discharge Summary Hospital Course Summary: This 39-year-old male with a history of hypertension, anxiety disorder, obesity, and alcohol use disorder presented to the emergency department with several days of intermittent right upper quadrant abdominal pain, nausea, vomiting, and subjective fever, which acutely worsened after fatty food intake. He reported similar prior episodes and had been self-medicating with NSAIDs. On initial evaluation, he was afebrile, hemodynamically stable, and appeared uncomfortable with a pain level of 7/10. Laboratory studies revealed mild normocytic normochromic anemia, thrombocytopenia, hyponatremia, hypocalcemia, and elevated liver function tests (total bilirubin, AST, ALT, ALP), with a mildly hydropic gallbladder and pericholecystic fluid on ultrasound, but no gallstones. MRCP demonstrated hepatomegaly with diffuse hepatic steatosis, minimal perihepatic fluid, peripancreatic and retroperitoneal inflammatory fluid and fat stranding adjacent to the pancreatic head and uncinate process, suspicious for acute pancreatitis, and mild gallbladder wall thickening with minimal pericholecystic inflammatory change and layering sludge without gallstones. HIDA scan confirmed gallbladder dyskinesia with an ejection fraction of 29%. The patient was admitted for further management of acute cholecystitis, gallbladder dyskinesia, and acute pancreatitis, and was started on intravenous fluids, Zosyn 3.375 g IV every 8 hours, pain control with Dilaudid or Percocet, and antiemetics (Ondansetron 4 mg IV as needed). He was kept NPO and monitored with serial laboratory studies, including LFTs, CBC, and BMP. Incentive spirometry was ordered to prevent postoperative atelectasis or pneumonia, and supportive measures included electrolyte replacement, GI prophylaxis with famotidine, and DVT prophylaxis with sequential compression devices. Over the course of hospitalization, the patients abdominal pain improved, though he continued to experience intermittent discomfort and mild staple line bleeding postoperatively. Serial laboratory studies showed persistent elevation of total bilirubin, AST, ALT, and ALP, with a peak total bilirubin of 5.3 mg/dL and gradual improvement thereafter. He developed mild acute kidney injury (creatinine 1.7, BUN 27). On hospital day 5, the patient underwent laparoscopic cholecystectomy for acute cholecystitis and gallbladder dyskinesia. The patient remained hemodynamically stable throughout, with gradual improvement in laboratory parameters and clinical status. Patient was discharged with instructions to Follow up with PCP within 2-3 days Follow up with , outpatient within 3 weeks Follow up with GI consult, outpatient within 2 weeks Complete the course of antibiotics as directed Take prn meds for pain, nausea, constipation Hold Valsartan , BP med for now in view of low blood pressure and recent MAHENDRA [resolved now] Keep the incision sites clean and dry You have hepatic steatosis, follow up with your PCP regarding this Monitor Liver function tests and BMP Monitor for fever, chills, worsening abdominal pain, persistent vomiting, inability to tolerate oral intake, yellowing of eyes/skin, redness, drainage, foul odor from the incision, increasing abdominal swelling or shortness of breath Food And Beverage Manager(s): Gastroenterology consult. Assessment: Abnormal LFTs Thrombocytopenia, concerning for liver disease Abdominal pain N/V Alcohol use Plan: Await MRCP Trend LFTs Continue GI prophylaxis Avoid NSAIDs Antireflux measures Monitor H&H and transfuse as needed Call with questions, concerns or change in clinical status Patient to follow-up at clinic post discharge General surgery consult was done by Dr. Trimble ASSESSMENT: [] Biliary dyskinesia Acute cholecystitis PLAN: OR for robotic/laparoscopic cholecystectomy Procedure(s): [place] [address] Operative Note: Robotic Marizol Patient Name: Esequiel Edmond Unit Number: [id number] Date of : 1985 Patient Status: Discharged Inpatient Attending Doctor: Chandler Rich MD OP Procedure: Robotic Marizol OP Procedure: Robotic Marizol OP Procedure Note OPERATIVE PROCEDURE NOTE DATE OF SERVICE: Aug 28, 2025 PREOPERATIVE DIAGNOSIS: Biliary dyskinesia POSTOPERATIVE DIAGNOSIS: Biliary dyskinesia Acute cholecystitis Liver cirrhosis PROCEDURES PREFORMED: Robotic Cholecystectomy SURGEON: Atilio Orellana MD ANESTHESIA: General. ESTIMATED BLOOD LOSS: Minimal. SPECIMEN(S) REMOVED: Gallbladder. FINDINGS: Cirrhotic looking liver Severe right upper quadrant inflammatory adhesions Enlarged gallbladder COMPLICATIONS: None. DESCRIPTION OF PROCEDURE: The patient was brought into the Operating Room. After proper identification, the patient was placed on the operating table in the supine position. General anesthesia was then administered and the patient was endotracheally intubated. Attention was then focussed in the area of the abdomen. The same was prepped and draped in the usual sterile fashion. An appropriate time-out was then carried out at this point. Then, I proceeded by making an incision in the infraumbilical region. The incision was carried through skin and subcutaneous tissue until the fascia was identified. The fascia was then carefully incised and the stay stit ches were placed on either side of the fascia and the Jerry port was then introduced. CO2 was insufflated into the abdomen and the robotic camera was then introduced. Inspection of the abdomen did not show any anterior abdominal wall adhesions. The gallbladder was noted to be enlarged and tense with evidence of severe right upper quadrant inflammatory adhesions. So at this point, I proceeded by placing the left-sided port and also the right-sided port under vision and my orthodontic assistant; port was then placed right-sided lateral. So, at this point, the patient was then placed in slight reverse Trendelenburg position and rotated to his left. The robot was then brought in and then we proceeded by docking the robot with no difficulty. Once the robot was docked and everything looked fine, I proceeded by going into the console area. My orthodontic assistant, then grasped the fundus of the gallbladder and the same was retracted cephalad and using the grasper and the robotic [ ], I proceeded by taking down the inflammatory adhesions in the right upper quadrant. At the infundibulum, I proceeded by grasping the infundibulum, I proceeded by carefully opening the peritoneum covering the triangle of Calot and I was able to expose the cystic duct and the cystic artery. Each of these structures were then skeletonized for a distance of about 2 cm and then I proceeded by placing clips; proximal and distal clips on each of these structures. Using the robotic scissors, I proceeded by transecting these 2 structures. The gallbladder was then removed from the gallbladder fossa using the robotic cautery all the way down until I was able to remove it at the fundus as well. Further inspection did not reveal any other pathology. Hemostasis was noted to be adequate. So, at this point, the robot was then undocked. I scrubbed in and the gallbladder was then extracted from the abdomen using an Endopouch. Copious amount of irrigation was carried out at this point. Hemostasis was noted to be adequate. Then, I proceeded by closing the wound. Ports were withdrawn under vision. CO2 was let out of the abdomen. The infraumbilical fascia was approximated together using 0 Vicryl [id number] stitches and the skin was approximated together using skin demetria and sterile dressings were then applied. Instrument and sponges count was found correct x2. The patient was then woken up, extubated and taken to Recovery Room in stable condition. The patient tolerated the procedure well. ATILIO ORELLANA MD Aug 28, 2025 20:56 [facility] [address] [place] [address] IMAGING REPORT Signed PATIENT: ESEQUIEL EDMOND MR#: [id number] : 1985 SEX: M AGE: 39 LOCATION: [facility] ORDER 113 STATUS: ADM IN REPORT#: [id number] SERVICE 1135 REASON: acute cholecystitis versus choledocholithiasis ORDERING PHYSICIAN: EKTA RO MD PROCEDURE: MRCP WO - MRCP(ABDWO)CHOLANGIOPANCREATOG EXAM: MR Cholangiopancreatography CLINICAL HISTORY: Follow-up abdominal symptoms. TECHNIQUE: Multiplanar images were obtained without intravenous contrast, utilizing a series of customized pulse sequences. COMPARISON: US 08/24/2025 FINDINGS: Study limited by patient motion. LIVER: The liver is enlarged, measuring 22.5 cm in craniocaudal span, with diffuse hepatic steatosis. Minimal perihepatic fluid. GALLBLADDER AND BILIARY SYSTEM: Mild diffuse gallbladder wall thickening measuring up to 0.4 cm with minimal pericholecystic fat stranding. Layering bile and sludge in the gallbladder lumen. No gallbladder calculus. No biliary duct dilatation. No ductal stones. PANCREAS: Peripancreatic fluid and fat stranding along the pancreatic head and uncinate process. Minimal fluid and fat stranding along the retroperitoneal planes in the preaortic region, bilateral anterior pararenal fascia, and retroperitoneal segments of the duodenum. No pancreatic mass. SPLEEN: The spleen is enlarged, measuring 13.1 cm, with minimal perisplenic fluid. ADRENALS: Normal bilaterally. No masses. KIDNEYS: Normal in size and configuration. No stone, hydronephrosis, mass, or significant cyst. RETROPERITONEUM: Minimal retroperitoneal fluid and fat stranding as above. No lymphadenopathy. AORTA: The visualized abdominal aorta is normal in size and configuration. No stenosis or aneurysm. BOWEL/MESENTERY: No bowel dilatation or wall thickening. No free or loculated fluid apart from minimal inflammatory fluid as described. No mesenteric stranding or lymphadenopathy beyond the findings above. ABDOMINAL WALL: Normal. BONES: Normal. IMPRESSION: Study limited by patient motion. Hepatomegaly with diffuse hepatic steatosis and minimal perihepatic fluid. Peripancreatic and retroperitoneal inflammatory fluid and fat stranding adjacent to the pancreatic head and uncinate process, suspicious for acute pancreatitis; recommend correlation with serum amylase and lipase. Mild gallbladder wall thickening with minimal pericholecystic inflammatory change and layering sludge without gallstone. Splenomegaly with minimal perisplenic fluid. /[place] DICTATED BY: JAZMIN HESTER MD DATE: 08/26/251655 ELECTRONICALLY SIGNED BY: JAZMIN HESTER MD DATE: 08/26/251655 [place] [address] IMAGING REPORT Signed PATIENT: ESEQUIEL EDMOND MR#: [id number] : 1985 SEX: M AGE: 39 LOCATION: [facility] ORDER 0503 STATUS: ADM IN REPORT#: [id number] SERVICE 0459 REASON: suspected acute cholecystiits ORDERING PHYSICIAN: CARLY MANRIQUE PROCEDURE: HIDA EF - NM HIDA WITH EF/CCK Exam: Hepatobiliary scan. Comparison: None. History: Suspected acute cholecystitis. Findings: After administration of 7.0 mCi of technetium 99 Mebrofenin IV, images were obtained over the next 60 min at 5-minute intervals. This demonstrates visualization of activity in the liver, which proceeds into the biliary tree, gallbladder, and proximal small bowel. Following the administration of 2.5 mcg Sincalide IV over 30 min, additional images at 120 sec increments were performed for 30 min. The gallbladder ejection fraction is 29% (abnormal < 38%). Symptoms of administration: None. IMPRESSION: Scan findings are suggestive of gall bladder dyskinesia with an ejection fraction of 29%. /[place] DICTATED BY: SEVERO DIAS Jr., MD DATE: 08/24/252210 ELECTRONICALLY SIGNED BY: SEVERO DIAS Jr., MD DATE: 08/24/252210 [place] [address] [place] [address] IMAGING REPORT Signed PATIENT: ESEQUIEL EDMOND MR#: [id number] : 1985 SEX: M AGE: 39 LOCATION: [facility] ORDER 9 STATUS: [facility] REPORT#: [id number] SERVICE 7 REASON: h/o gb sludge r/o marizol ORDERING PHYSICIAN: SONNY BRUNER MD PROCEDURE: ABDRUQLTD - US ABDOMINAL RUQ\LTD EXAM: US Abdomen, Right Upper Quadrant. CLINICAL HISTORY: h/o gb sludge r/o marizol TECHNIQUE: Right upper quadrant sonography performed with image documentation. COMPARISON: None provided. FINDINGS: Hepatomegaly. The right hepatic lobe measures 21.4 cm craniocaudally. Increased echogenicity of the liver parenchyma, compatible with fatty liver. Hydropic gallbladder measures up to 11.6 cm in length with a wall thickness of 3 mm (unable to determine Salguero sign as the patient is on pain medication). Pulsatile hepatopetal flow in the portal vein with a peak systolic velocity of 10.6 cm/s. The CBD is normal in caliber and measures up to 5 mm in diameter. The right kidney is normal in size and texture. It measures 12.4 x 5.4 x 5.0 cm. Suboptimal evaluation due to the increased intestinal air. IMPRESSION: Mildly hydropic gallbladder. No gallstone is evident at this time (suboptimal evaluation due to the bowel gases). No pericholecystic fluid is evident. No definite acute cholecystitis is evident at this time. Recommend a HIDA scan for further evaluation. Hepatomegaly and hepatic steatosis. /[place] DICTATED BY: SEVERO DIAS Jr., MD DATE: 08/24/25517 ELECTRONICALLY SIGNED BY: SEVERO DIAS Jr., MD DATE: 08/24/25517 Assessment/Plan: ASSESSMENT: Acute cholecystitis POA Gall bladder dyskinesia with EF of 29%, POA Acute pancreatitis, POA Hypertension POA Anxiety disorder POA Obesity POA Acute normocytic normochromic anemia POA Acute thrombocytopenia POA Alcoholism POA Discharge Instructions: Follow up with PCP within 2-3 days Follow up with , outpatient within 3 weeks Follow up with GI consult, outpatient within 2 weeks Complete the course of antibiotics as directed Take prn meds for pain, nausea, constipation Hold Valsartan , BP med for now in view of low blood pressure and recent MAHENDRA [resolved now] Keep the incision sites clean and dry You have hepatic steatosis, follow up with your PCP regarding this Monitor Liver function tests and BMP Monitor for fever, chills, worsening abdominal pain, persistent vomiting, inability to tolerate oral intake, yellowing of eyes/skin, redness, drainage, foul odor from the incision, increasing abdominal swelling or shortness of breath Home Medications: Active Scripts Hydroxyzine HCl (Hydroxyzine HCl) 25 Mg Tablet, 1 TAB PO TID for anxiety for 30 Days, #90 TAB 0 Refills Prov:DENISEZEKE FAMILY CONSUMER SCIENTIST 07/15/25 Reported Medications Valsartan (Valsartan) 160 Mg Tablet, 1 TAB PO DAILY, 0 Refills 08/24/25 Continued Medications: Hydroxyzine HCl (Hydroxyzine HCl) 25 Mg Tablet 1 TAB PO TID for anxiety for 30 Days, #90 TAB 0 Refills Valsartan (Valsartan) 160 Mg Tablet 1 TAB PO DAILY, 0 Refills Time spent arranging discharge: 31-60 minutes ATTESTATION BY PHYSICIAN I have seen and examined the patient. I reviewed the documentation, medical decision making, and treatment plan as noted by the resident physician above. I agree with the findings and plan of care. CAMILLA GALVEZ MD, SHAJI MD Sep 01, 2025 16:19
--- NOTE | 2025-09-01 16:35 | PN ---
GENERAL SURGERY PROGRESS NOTE DATE OF SERVICE: Sep 01, 2025 TIME OF SERVICE: 16:33 PROBLEM LISTS: [ ] S/p robotic cholecystectomy INTERVAL HISTORY: [ No new issues PHYSICAL EXAMINATION: GENERAL: [Patient is lying comfortably in bed, not in any obvious distress.] HEAD: [Normal with no signs of head trauma.] EYES: [Not pale not jaundiced afebrile to touch.] ENT: [ Normal.] NECK: [Supple,no tenderness,no lymphadenopathy,no masses,no thyromegaly ,no bruits, no JVD.] LUNGS: [Clear breath sounds bilaterally. No wheezes, rales, or rhonchi.] HEART: [Regular rate and rhythm. Normal S1 and S2, without murmurs, rub or gallop.] VASC: [No edema. Peripheral pulses normal and equal in all extremities.] ABD: [Bowel sounds present,soft, dressings in place : [Normal, no suprapubic tenderness.] LYMPH: [No lymphadenopathy noted.] EXT: [ Warm soft, non tender.] SKIN: [ No rashes or lesions.] NEURO: [ Awake Alert and oriented x3.] LABORATORY: [ ] Hematology Labs: Test 09/01/25 05:48 08/31/25 06:15 Range/Units White Blood Count 9.2 4.8-10.8 K/uL Red Blood Count 4.07 L 4.50-6.20 MIL/uL Hemoglobin 11.8 L 14.0-18.0 g/dL Hematocrit 36.5 L 42-54 % Mean Corpuscular Volume 89.7 79-99 fL Mean Corpuscular Hemoglobin 29.0 27.0-33.0 pg Mean Corpuscular Hemoglobin Concent 32.3 32.0-36.0 g/dL Red Cell Distribution Width 18.1 H 11.0-15.5 % Platelet Count 210 130-400 K/uL Mean Platelet Volume 9.9 7.5-10.5 fL Immature Granulocyte % (Auto) 0.8 0-1 % Neutrophils (%) (Auto) 61.6 40.0-77.0 % Lymphocytes (%) (Auto) 18.3 L 21.0-51.0 % Monocytes (%) (Auto) 16.1 H 3.0-13.0 % Eosinophils (%) (Auto) 1.5 0.0-8.0 % Basophils (%) (Auto) 1.7 0.0-5.0 % Neutrophils # (Auto) 5.6 1.8-7.7 K/uL Lymphocytes # (Auto) 1.7 1.0-4.8 K/uL Monocytes # (Auto) 1.5 H 0.1-1.0 K/uL Eosinophils # (Auto) 0.14 0.00-0.70 K/uL Basophils # (Auto) 0.16 0.00-0.20 K/uL Absolute Immature Granulocyte (auto 0.07 0-1 K/uL Nucleated Red Blood Cells 0.0 0.0-0.19 % Red Blood Cell Morphology See comments Chemistry Labs: Test 09/01/25 05:48 Range/Units Sodium Level 131 L 136-145 mmol/L Potassium Level 4.0 3.5-5.1 mmol/L Chloride Level 100 L 101-111 mmol/L Carbon Dioxide Level 24 21-32 mmol/L Blood Urea Nitrogen 24 H 7-18 mg/dL Creatinine 1.0 0.5-1.3 mg/dL Glomerular Filtration Rate Calc 98 >90 mL/min Random Glucose 95 70-105 mg/dL Total Calcium 8.3 L 8.5-10.1 mg/dL Total Bilirubin 3.9 H 0.2-1.0 mg/dL Aspartate Amino Transf (AST/SGOT) 143 H 10-37 U/L Alanine Aminotransferase (ALT/SGPT) 95 H 12-78 U/L Alkaline Phosphatase 221 H 50-136 U/L Total Protein 6.9 6.0-8.3 g/dL Albumin 2.4 L 3.5-5.0 g/dL DIAGNOSTICS / RADIOLOGY: [Copy/Paste Echos/Imaging Report here] ASSESSMENT: S/p robotic cholecystectomy PLAN: Advance diet Ambulate Okay to DC home Follow-up in my office in two weeks CAMDEN ORELLANA MD Sep 01, 2025 16:35
== END 2025-09-01 15:20 | disposition home or self-care (01) | DRG 417 ==
LOC: EDH 01:45 → EDHIP 01:46 → 3CH 09:50
PROVIDERS: ADMIT Internal Medicine; ATTEND Internal Medicine
PROC: 8E0W4CZ Robotic Assisted Procedure of Trunk Region, Percutaneous Endoscopic Approach (ICD-10-PCS; 2025-08-28)
PROC: 0FT44ZZ Resection of Gallbladder, Percutaneous Endoscopic Approach (ICD-10-PCS; principal; 2025-08-28 19:38)
DX: K80.00 Calculus of gallbladder with acute cholecystitis without obstruction (principal); K85.90 Acute pancreatitis without necrosis or infection, unspecified; D69.6 Thrombocytopenia, unspecified; E87.1 Hypo-osmolality and hyponatremia; E83.51 Hypocalcemia; N17.9 Acute kidney failure, unspecified; E66.9 Obesity, unspecified; I10 Essential (primary) hypertension; D64.9 Anemia, unspecified; K74.60 Unspecified cirrhosis of liver; K82.1 Hydrops of gallbladder; F41.1 Generalized anxiety disorder; G24.9 Dystonia, unspecified; K59.00 Constipation, unspecified; K76.0 Fatty (change of) liver, not elsewhere classified; Z68.34 Body mass index [BMI] 34.0-34.9, adult
CPT/HCPCS: 36415; 74181; 76705; 78227; 80048; 80051; 80053; 80061; 80074; 80076; 80305; 81001; 81003; 82150; 83036; 83690; 83735; 84443; 85025; 85027; 88304; 96372; 96374; 99285; A4450; A9537; G0378; J0330; J0696; J1100; J1171; J1885; J2003; J2250; J2270; J2405; J2543; J2704; J2710; J3010; J3490; J7030; A4649; A4930; C1769; J0665; J1308